=== PATIENT | female | born 1930 | race Caucasian/White ===

== ENCOUNTER 2017-05-23 04:18 | Inpatient (IN) | payer MEDICARE, BC ==
[2017-05-23] MEDS ORDERED: MORPHINE SULFATE 4 MG/ML SYRINGE IV STA (04:46)
[2017-05-23] MEDS ORDERED: SODIUM CHLORIDE 0.9% 500 ML IV STA (04:46)
[2017-05-23 05:15] LABS: Basophils # (A) 0.1 k/uL (0-0.2); Basophils % (A) 0 %; CH 30.5; CHCM 33.8; Eosinophils # (A) 0.1 k/uL (0-0.7); Eosinophils % (A) 1 %; HCT 38.2 % (34.0-46.0); HDW 2.17; HGB 12.8 gm/dL (11.4-16.0); Luc # (Auto) 0.11; Luc % (Auto) 1; Lymphocytes # (A) 4.5 k/uL (1.0-4.8); Lymphocytes % (A) 39 %; MCH 30.5 pg (25.0-35.0); MCHC 33.6 g/dL (31.0-37.0); MCV 90.7 fL (80.0-100.0); Monocytes # (A) 0.5 k/uL (0-1.0); Monocytes % (A) 4 %; Neutrophils # (A) 6.3 k/uL (1.3-7.7); Neutrophils % (A) 55 %; RBC 4.21 m/uL (3.80-5.40); RDW 14.4 % (11.5-15.5); WBC 11.6 k/uL (3.8-10.6); WBC (Perox) 11.52
[2017-05-23 05:25] LABS: Calcium 8.9 mg/dL (8.4-10.2); Total Bilirubin 0.8 mg/dL (0.2-1.3); Total Protein 6.3 g/dL (6.3-8.2)
--- NOTE | 2017-05-23 06:19 | XR ---
INDICATION: Abdominal pain COMPARISON: None. FINDINGS: Single frontal view of the abdomen demonstrates a nonobstructive bowel gas pattern. Multiple gas-filled loops of small and large bowel may represent ileus. The left hemidiaphragm appears elevated. There is opacification of the left hemidiaphragm with some gas-filled areas either representing aerated lung or gas-filled loop of bowel within a left-sided diaphragmatic hernia. Regional skeleton appears intact. IMPRESSION: 1. Possible ileus. No radiographic findings to suggest obstruction. 2. Abnormal appearance of the visualized lower left hemithorax, may represent partially consolidated lung versus left diaphragmatic hernia.
[2017-05-23 06:25] LABS: Appearance,Urine Clear (Clear); Bacteria,Urine Rare /hpf; Bilirubin,Urine Negative (Negative); Glucose,Urine (UA) Negative (Negative); Ketones,Urine Negative (Negative); Leukocyte Esterase,Urine Small (Negative); Mucus,Urine Rare /hpf; Nitrite,Urine Negative (Negative); Particle Count 1109; Protein,Urine Negative (Negative); RBC,Urine 1 /hpf (0-5); Specific Gravity,Urine 1.006 (1.001-1.035); Squamous Epithelial Cell,Urine 1 /hpf (0-4); UA Billing (MACRO vs. MICRO) MICRO; Urobilinogen,Urine <2.0 mg/dL (<2.0); WBC,Urine 6 /hpf (0-5)
[2017-05-23] MEDS ORDERED: MORPHINE SULFATE 2 MG/ML SYRINGE IVP PRN (06:27)
[2017-05-23] MEDS: SODIUM CHLORIDE 0.9% 1,000 ML IV SCH ×2 (06:32→18:15)
[2017-05-23] MEDS ORDERED: ONDANSETRON 4 MG/2 ML VIAL IVP PRN (06:32)
[2017-05-23] MEDS ORDERED: NALOXONE 0.4 MG/ML 1 ML VIAL IV PRN (06:32)
--- NOTE | 2017-05-23 06:32 | ED ---
General Adult HPI - General Chief complaint: Nausea/Vomiting/Diarrhea Stated complaint: Diarrhea Time Seen by Provider: 05/23/17 04:30 Source: patient, RN notes reviewed Mode of arrival: wheelchair Limitations: no limitations - History of Present Illness Initial comments: 87-year-old female with history of hypertension presents with a three-day history of nausea vomiting and diarrhea. She reports approximately 12 episodes of nausea, denies any blood. She also reports approximately 10 episodes of diarrhea. This is progressed to watery. Patient was started on Cipro on Sunday for these symptoms. Also complains of crampy abdominal pain which is generalized. She has had no abdominal surgeries in the past. She denies fever. Denies chest pain denies shortness of breath. She denies dysuria. - Related Data Home Medications Medication Instructions Recorded Confirmed Ciprofloxacin HCl [Cipro] 500 mg PO Q12HR 05/23/17 05/23/17 Lisinopril-Hctz 20-12.5 mg 2 tab PO DAILY 05/23/17 05/23/17 [Zestoretic 20-12.5] Allergies Allergy/AdvReac Type Severity Reaction Status Date / Time No Known Allergies Allergy Verified 05/23/17 04:26 Review of Systems ROS Statement: Those systems with pertinent positive or pertinent negative responses have been documented in the HPI. ROS Other: All systems not noted in ROS Statement are negative. Past Medical History Past Medical History: GERD/Reflux, Hypertension, Osteoarthritis (OA) Additional Past Medical History / Comment(s): TIA several yrs ago History of Any Multi-Drug Resistant Organisms: None Reported Past Surgical History: Tonsillectomy Additional Past Surgical History / Comment(s): neck sx "don't know what kind of surgery" Past Psychological History: No Psychological Hx Reported Smoking Status: Former smoker Past Alcohol Use History: Occasional Past Drug Use History: None Reported General Exam Limitations: no limitations General appearance: alert, in no apparent distress Head exam: Present: atraumatic, normocephalic Eye exam: Present: normal appearance, PERRL ENT exam: Present: normal exam, mucous membranes dry Neck exam: Present: normal inspection, full ROM Respiratory exam: Present: normal lung sounds bilaterally. Absent: respiratory distress, wheezes Cardiovascular Exam: Present: regular rate, normal rhythm GI/Abdominal exam: Present: soft, tenderness (Generalized tenderness to palpation, no rebound or guarding, hyperactive bowel sounds) Extremities exam: Present: normal inspection, normal capillary refill. Absent: pedal edema Neurological exam: Present: alert, oriented X3, CN II-XII intact. Absent: motor sensory deficit Psychiatric exam: Present: normal affect, normal mood Skin exam: Present: warm, dry. Absent: cyanosis, diaphoretic Course Vital Signs 05/23/17 05/23/17 05/23/17 04:20 04:37 05:40 Temperature 97.3 F L 97.9 F Pulse Rate 86 83 77 Respiratory 18 16 16 Rate Blood Pressure 169/72 172/65 O2 Sat by Pulse 98 97 98 Oximetry 05/23/17 06:09 Temperature Pulse Rate 81 Respiratory 18 Rate Blood Pressure 179/77 O2 Sat by Pulse 97 Oximetry EKG Findings - EKG Comments: EKG Findings:: EKG shows normal sinus rhythm ventricular rate 82, NM interval 142, QRS duration 76, QTC 441 Medical Decision Making - Medical Decision Making 87-year-old female presenting with nausea vomiting and diarrhea. Diarrhea has progressed to profound explosive and watery. Patient is currently on Cipro. Cipro will be held until C. diff assay is obtained. Abdominal x-ray shows ileus, and possible diaphragmatic hernia. No obstruction. Patient is given 2 mg morphine and IV hydration. On reevaluation she is feeling somewhat better, states there is still minimal crampy abdominal pain. She denies nausea. Laboratory studies reveal a serum creatinine of 2.3, no known baseline. Patient will be started on normal saline for rehydration. Diagnosis: Acute kidney injury, dehydration, nausea vomiting diarrhea - Lab Data Result diagrams: 05/23/17 05:08 05/23/17 05:08 Lab Results 05/23/17 05/23/17 Range/Units 05:08 05:08 WBC 11.6 H (3.8-10.6) k/uL RBC 4.21 (3.80-5.40) m/uL Hgb 12.8 (11.4-16.0) gm/dL Hct 38.2 (34.0-46.0) % MCV 90.7 (80.0-100.0) fL MCH 30.5 (25.0-35.0) pg MCHC 33.6 (31.0-37.0) g/dL RDW 14.4 (11.5-15.5) % Plt Count 453 H (150-450) k/uL Neutrophils % 55 % Lymphocytes % 39 % Monocytes % 4 % Eosinophils % 1 % Basophils % 0 % Neutrophils # 6.3 (1.3-7.7) k/uL Lymphocytes # 4.5 (1.0-4.8) k/uL Monocytes # 0.5 (0-1.0) k/uL Eosinophils # 0.1 (0-0.7) k/uL Basophils # 0.1 (0-0.2) k/uL Sodium 132 L (137-145) mmol/L Potassium 4.0 (3.5-5.1) mmol/L Chloride 97 L (98-107) mmol/L Carbon Dioxide 21 L (22-30) mmol/L Anion Gap 14 mmol/L BUN 52 H (7-17) mg/dL Creatinine 2.30 H (0.52-1.04) mg/dL Est GFR (MDRD) Af Amer 24 (>60 ml/min/1.73 sqM) Est GFR (MDRD) Non-Af 20 (>60 ml/min/1.73 sqM) Glucose 101 H (74-99) mg/dL Calcium 8.9 (8.4-10.2) mg/dL Total Bilirubin 0.8 (0.2-1.3) mg/dL AST 22 (14-36) U/L ALT 31 (9-52) U/L Alkaline Phosphatase 115 (38-126) U/L Total Protein 6.3 (6.3-8.2) g/dL Albumin 3.8 (3.5-5.0) g/dL Lipase 128 (23-300) U/L Disposition Clinical Impression: Dehydration, Acute kidney injury Disposition: ADMITTED IP TO THIS [facility] Condition: Stable Referrals: Emiliano Johns MD [Primary Care Provider] - 1-2 days Decision to Admit Reason: Admit from EC Decision Date: 05/23/17 Decision Time: 06:31
[2017-05-23] MEDS: LISINOPRIL-HCTZ 20-12.5 MG 1 EACH TAB PO SCH ×2 (08:20→15:45)
[2017-05-23] MEDS ORDERED: NAPROXEN 250 MG TAB PO PRN (08:27)
[2017-05-23] MEDS ORDERED: LOPERAMIDE 2 MG CAP PO PRN (08:29)
--- NOTE | 2017-05-23 08:34 | P.HPIM ---
History of Present Illness H&P Date: 05/23/17 Chief Complaint: Diarrhea This is a history and physical an 87-year-old white female who saw me Sunday for worsening diarrhea. We went ahead and started Cipro. She does live with her son, who does most of the cooking but has no symptoms. In the last several days she states it has slowly become more profound as far as the amount of diarrhea. No blood was noted. No hematemesis or hematochezia. The patient states yesterday, prior to admission she tried to eat some applesauce is a told her to try to get more of a blander diet. The patient states significant diarrhea and then woke up in the middle of the night to have a significant amount of diarrhea. Imodium sometimes is helpful. We will restart this otherwise. I discussed with her options, we will go ahead and check stool cultures. But she is admitted secondary to dehydration elements. She started to have prerenal azotemia. GI will not be consulted also. Stool cultures are pending question if stills also pending. Otherwise, her main complaint is diffuse upper abdominal pain. Review of Systems Constitutional: Denies chills, Denies fever Eyes: denies blurred vision, denies pain Ears, nose, mouth and throat: Denies headache, Denies sore throat Cardiovascular: Denies chest pain, Denies shortness of breath Gastrointestinal: Reports change in bowel habits, Reports diarrhea, Denies jaundice Genitourinary: Denies dysuria, Denies hematuria Musculoskeletal: Denies myalgias Past Medical History Past Medical History: GERD/Reflux, Hypertension, Osteoarthritis (OA) Additional Past Medical History / Comment(s): TIA several yrs ago History of Any Multi-Drug Resistant Organisms: None Reported Past Surgical History: Tonsillectomy Additional Past Surgical History / Comment(s): neck sx "don't know what kind of surgery" Past Psychological History: No Psychological Hx Reported Smoking Status: Former smoker Past Alcohol Use History: Occasional Past Drug Use History: None Reported Medications and Allergies Home Medications Medication Instructions Recorded Confirmed Type Allopurinol [Zyloprim] 100 mg PO DAILY 05/23/17 05/23/17 History Aspirin [Adult Low Dose Aspirin EC] 81 mg PO DAILY 05/23/17 05/23/17 History Ciprofloxacin HCl [Cipro] 500 mg PO Q12HR 05/23/17 05/23/17 History Gabapentin [Neurontin] 100 mg PO BID 05/23/17 05/23/17 History Lisinopril-Hctz 20-12.5 mg 1 tab PO BID 05/23/17 05/23/17 History [Zestoretic 20-12.5] Naproxen Sodium [Aleve] 220 mg PO Q12HR PRN 05/23/17 05/23/17 History Omeprazole 20 mg PO DAILY 05/23/17 05/23/17 History Allergies Allergy/AdvReac Type Severity Reaction Status Date / Time No Known Allergies Allergy Verified 05/23/17 07:57 Physical Exam Vitals: Vital Signs Temp Pulse Pulse Resp BP BP Pulse Ox 05/23/17 08:17 97.4 F L 86 18 185/73 97 05/23/17 06:36 97.3 F L 81 16 184/77 97 05/23/17 06:09 81 18 179/77 97 05/23/17 05:40 97.9 F 77 16 172/65 98 05/23/17 04:37 83 16 97 05/23/17 04:20 97.3 F L 86 18 169/72 98 Intake and Output 05/22/17 05/23/17 05/23/17 22:59 06:59 14:59 Other: Weight 58.06 kg - Constitutional General appearance: no acute distress - EENT Eyes: EOMI - Neck Neck: no lymphadenopathy - Respiratory Respiratory: bilateral: CTA - Cardiovascular Rhythm: regular Heart sounds: normal: S1, S2 - Gastrointestinal General gastrointestinal: hyperactive bowel sounds, soft, no tenderness - Neurologic Neurologic: CNII-XII intact Results CBC & Chem 7: 05/23/17 05:08 05/23/17 05:08 Labs: Abnormal Lab Results - Last 24 Hours (Table) 05/23/17 05/23/17 05/23/17 Range/Units 05:08 05:08 06:07 WBC 11.6 H (3.8-10.6) k/uL Plt Count 453 H (150-450) k/uL Sodium 132 L (137-145) mmol/L Chloride 97 L (98-107) mmol/L Carbon Dioxide 21 L (22-30) mmol/L BUN 52 H (7-17) mg/dL Creatinine 2.30 H (0.52-1.04) mg/dL Glucose 101 H (74-99) mg/dL Ur Leukocyte Esterase Small H (Negative) Urine WBC 6 H (0-5) /hpf Urine Bacteria Rare H (None) /hpf Hyaline Casts 5 H (0-2) /lpf Urine Mucus Rare H (None) /hpf Assessment and Plan (1) Acute kidney injury Status: Acute (2) Dehydration Status: Acute (3) Diarrhea Status: Acute (4) History of hypertension Status: Acute (5) History of gout Status: Acute Plan: Continue IV hydration. Start Imodium. Restart most of home medications. Add Flagyl to Cipro. Stool culture and question difficile is pending. Check GI consultation. Order CBC and CMP in a.m. Time with Patient: Greater than 30
[2017-05-23] MEDS ORDERED: LISINOPRIL-HCTZ 20-12.5 MG 1 EACH TAB PO SCH (09:00)
[2017-05-23] MEDS ORDERED: CIPROFLOXACIN HCL 500 MG TAB PO SCH (09:00)
[2017-05-23] MEDS ORDERED: ASPIRIN 81 MG CHEW PO SCH ×2 (09:00→21:00)
[2017-05-23 10:55] VITALS: BMI 24.3
[2017-05-23] MEDS: GABAPENTIN 100 MG CAP PO SCH ×2 (13:45→20:01)
[2017-05-23] MEDS: ALLOPURINOL 100 MG TAB PO SCH (13:46)
[2017-05-23] MEDS: metroNIDAZOLE 500 MG TAB PO SCH ×4 (13:46→21:34)
[2017-05-23] MEDS: PANTOPRAZOLE 40 MG TABLET PO SCH (13:46)
[2017-05-23] MEDS: amLODIPine 5 MG TAB PO SCH (18:14)
[2017-05-23] MEDS ORDERED: ZOLPIDEM 5 MG TAB PO PRN (21:00)
[2017-05-23] MEDS ORDERED: hydrALAZINE HCL 10 MG TAB PO PRN (21:52)
[2017-05-23] MEDS ORDERED: amLODIPine 5 MG TAB PO STA (21:52)
[2017-05-24] MEDS: amLODIPine 5 MG TAB PO SCH (07:18)
[2017-05-24] MEDS: LISINOPRIL-HCTZ 20-12.5 MG 1 EACH TAB PO SCH ×2 (07:18→20:30)
[2017-05-24 08:18] LABS: Calcium 8.5 mg/dL (8.4-10.2); Potassium 3.5 mmol/L (3.5-5.1); Total Bilirubin 0.7 mg/dL (0.2-1.3); Total Protein 5.6 g/dL (6.3-8.2)
--- NOTE | 2017-05-24 08:30 | P.PN ---
Subjective Principal diagnosis: Dehydration with diarrhea. This is a 87-year-old white female essentially admitted for severe diarrhea with dehydration. She's developed significant blood pressure issues with hypertension. We will adjust her medications today. No significant complaints of visual distortion or headache. No chest pain. Diarrhea seems to be improving. We will await cultures and Clostridium difficile. GI is otherwise consulted. Objective - Vital Signs Vital signs: Vital Signs Temp 97.8 F 05/24/17 07:00 Pulse 78 05/24/17 07:00 Resp 16 05/24/17 07:00 BP 184/74 05/24/17 07:00 Pulse Ox 96 05/24/17 07:00 Intake & Output 05/23/17 05/24/17 05/24/17 18:59 06:59 18:59 Intake Total 200 Balance 200 Weight 62.369 kg Intake: Oral 200 Other: # Voids 2 1 # Bowel Movements 1 - Constitutional General appearance: Present: average body habitus - EENT Eyes: Absent: abnormal pupil - Neck Neck: Absent: lymphadenopathy - Respiratory Respiratory: bilateral: CTA - Cardiovascular Rhythm: regular Heart sounds: normal: S1, S2 Abnormal Heart Sounds: Absent: S3 Gallop - Gastrointestinal General gastrointestinal: Present: soft - Neurologic Neurologic: Present: CNII-XII intact - Psychiatric Psychiatric: Present: appropriate affect, intact judgment & insight - Labs CBC & Chem 7: 05/23/17 05:08 05/24/17 07:38 Labs: Abnormal Lab Results - Last 24 Hours (Table) 05/24/17 Range/Units 07:38 Chloride 109 H (98-107) mmol/L Carbon Dioxide 19 L (22-30) mmol/L BUN 39 H (7-17) mg/dL Creatinine 1.63 H (0.52-1.04) mg/dL Total Protein 5.6 L (6.3-8.2) g/dL Albumin 3.2 L (3.5-5.0) g/dL Microbiology - Last 24 Hours (Table) 05/23/17 17:00 Stool Culture - Preliminary Stool Assessment and Plan (1) Acute kidney injury Status: Acute (2) Dehydration Status: Acute (3) Diarrhea Status: Acute (4) History of hypertension Status: Acute (5) History of gout Status: Acute Plan: Continue IV hydration. Titrate blood pressure medication. Check CMP in a.m. Anticipate discharge in next 24-48 hours if tolerating diet and diarrhea is resolving. Again, awaiting cultures and sensitivity. Time with Patient: Less than 30
[2017-05-24] MEDS: PANTOPRAZOLE 40 MG TABLET PO SCH (09:32)
[2017-05-24] MEDS: ALLOPURINOL 100 MG TAB PO SCH (09:32)
[2017-05-24] MEDS: metroNIDAZOLE 500 MG TAB PO SCH ×5 (09:32→20:30)
[2017-05-24] MEDS: GABAPENTIN 100 MG CAP PO SCH ×2 (09:32→20:30)
[2017-05-24] MEDS: CIPROFLOXACIN HCL 500 MG TAB PO SCH (09:32)
[2017-05-24 09:56] LABS: Basophils % (A) 1 %; CH 29.8; CHCM 33.3; Eosinophils # (A) 0.1 k/uL (0-0.7); Eosinophils % (A) 1 %; HCT 39.6 % (34.0-46.0); HGB 13.3 gm/dL (11.4-16.0); Luc # (Auto) 0.09; Luc % (Auto) 1; Lymphocytes # (A) 2.9 k/uL (1.0-4.8); Lymphocytes % (A) 39 %; MCH 30.2 pg (25.0-35.0); MCHC 33.5 g/dL (31.0-37.0); Mean Platelet Volume 8.3; Monocytes # (A) 0.4 k/uL (0-1.0); Monocytes % (A) 5 %; Neutrophils # (A) 3.9 k/uL (1.3-7.7); Neutrophils % (A) 53 %; RBC 4.41 m/uL (3.80-5.40); RDW 13.6 % (11.5-15.5); WBC 7.3 k/uL (3.8-10.6)
--- NOTE | 2017-05-24 10:36 | P.CONS ---
History of Present Illness - Reason for Consult Consult date: 05/24/17 Diarrhea Requesting physician: Emiliano Johns - History of Present Illness 87-year-old female presents with acute nausea vomiting diarrhea that started Sunday night. Her son barbecued dinner later that evening she developed some mild abdominal cramping with multiple episodes of loose nonbloody stool as well as nausea vomiting. Son was without symptoms. No fever or chills. No gross of hematemesis hematochezia melena. Symptoms seem to improve on Sunday after seeing her PCP was given an injection but then symptoms returned on Sunday. Presently feels better. One loose stool in the last 24 hours. Nausea vomiting subsided Sunday evening. Clostridium difficile negative. No history of diarrhea. No history of colonoscopy. No changes in medication sick contacts or unusual foods. White count 11.6 presently 7.3. Abdominal pain improved. Review of Systems Constitutional: Denies fever, chills, sweats, weight gain, or loss. HEENT: Negative for migraines, blurred vision or loss, earaches, drainage, tinnitus, oral mucosal lesions, dysphagia, or odynophagia. CARDIAC: Negative for chest pain, arrhythmias, or palpitation. RESPIRATORY: Negative for shortness of breath, hemoptysis, cough, or sputum production. GI: See HPI for pertinent findings. : Negative for hematuria, urgency, frequency, polyuria, or dysuria. GYNc: Denies possibility of . Negative vaginal discharge. MUSCULOSKELETAL: Negative for muscle aches, swelling, arthritis, and arthralgias. NEUROLOGIC: Negative for stroke or TIA. ENDOCRINE: Negative for thyroid problems. SKIN: Negative for rash or itching. PSYCHIATRIC: Negative history for depression and anxiety All systems: negative (See HPI) Past Medical History Past Medical History: GERD/Reflux, Hypertension, Osteoarthritis (OA) Additional Past Medical History / Comment(s): TIA several yrs ago History of Any Multi-Drug Resistant Organisms: None Reported Past Surgical History: Tonsillectomy Additional Past Surgical History / Comment(s): neck sx "don't know what kind of surgery" Past Anesthesia/Blood Transfusion Reactions: No Reported Reaction Past Psychological History: No Psychological Hx Reported Smoking Status: Former smoker Past Alcohol Use History: Occasional Past Drug Use History: None Reported - Past Family History Mother Family Medical History: Hypertension Additional Family Medical History / Comment(s): "born with hole in heart" Father Family Medical History: Myocardial Infarction (MA) Medications and Allergies Home Medications Medication Instructions Recorded Confirmed Type Allopurinol [Zyloprim] 100 mg PO DAILY 05/23/17 05/23/17 History Aspirin [Adult Low Dose Aspirin EC] 81 mg PO DAILY 05/23/17 05/23/17 History Ciprofloxacin HCl [Cipro] 500 mg PO Q12HR 05/23/17 05/23/17 History Gabapentin [Neurontin] 100 mg PO BID 05/23/17 05/23/17 History Lisinopril-Hctz 20-12.5 mg 1 tab PO BID 05/23/17 05/23/17 History [Zestoretic 20-12.5] Naproxen Sodium [Aleve] 220 mg PO Q12HR PRN 05/23/17 05/23/17 History Omeprazole 20 mg PO DAILY 05/23/17 05/23/17 History Allergies Allergy/AdvReac Type Severity Reaction Status Date / Time No Known Allergies Allergy Verified 05/23/17 07:57 Physical Exam Vitals: Vital Signs Temp Pulse Resp BP BP Pulse Ox 05/24/17 07:00 97.8 F 78 16 184/74 96 05/23/17 23:40 164/60 05/23/17 21:15 180/62 05/23/17 20:45 97.6 F 85 16 196/79 95 05/23/17 16:00 85 18 05/23/17 15:00 97.0 F L 85 18 197/83 160/128 96 Intake and Output 05/23/17 05/24/17 05/24/17 22:59 06:59 14:59 Intake Total 200 Balance 200 Intake: Oral 200 Other: # Voids 1 1 # Bowel Movements 1 General appearance: The patient is alert, oriented, in no acute distress. HET: Head is normocephalic and atraumatic. Pupils are equal and reactive. Oropharynx is clear without lesions. Neck: Supple without lymphadenopathy. Trachea midline. Heart: S1 S2. Regular rate and rhythm. Lungs: No crackles or wheezes are heard. Abdomen: Soft, nontender, nondistended with bowel sounds. No peritoneal signs. No palpable organomegaly or masses. Extremities: Normal skin color and turgor. No cyanosis, rash, ulceration, clubbing, or edema. Radial and pedal pulses are 2/4 bilaterally. Neurological: No focal deficits. Strength and sensation are grossly intact. Results CBC & Chem 7: 05/24/17 07:38 05/24/17 07:38 Labs: Abnormal Lab Results - Last 24 Hours (Table) 05/24/17 Range/Units 07:38 Chloride 109 H (98-107) mmol/L Carbon Dioxide 19 L (22-30) mmol/L BUN 39 H (7-17) mg/dL Creatinine 1.63 H (0.52-1.04) mg/dL Total Protein 5.6 L (6.3-8.2) g/dL Albumin 3.2 L (3.5-5.0) g/dL Microbiology - Last 24 Hours (Table) 05/23/17 17:00 Stool Culture - Preliminary Stool Assessment and Plan (1) Gastroenteritis Narrative/Plan: 87-year-old female presents with sudden onset of nausea vomiting nonbloody diarrhea 3 days suspect gastroenteritis with slow clinical improvement. Status: Acute Plan: 1. Advance diet as tolerated. Antidiarrheals as needed. Colonoscopy was discussed with patient however at this time she is declining. Continue supportive measures. Return to office in 1-2 weeks after discharge if symptoms have not improved will discuss outpatient colonoscopy; patient is agreeable with this plan a care. We'll follow with you. Thank you for this kind referral and the opportunity to participate in the care of your patient. This consultation was discussed with Dr. Arvizu. The impression and plan of care have been directed as dictated.
[2017-05-24] MEDS: amLODIPine 10 MG TAB PO SCH (11:41)
[2017-05-24] MEDS: SODIUM CHLORIDE 0.9% 1,000 ML IV SCH (11:42)
[2017-05-24] MEDS: ASPIRIN 81 MG CHEW PO SCH (20:29)
[2017-05-25] MEDS: SODIUM CHLORIDE 0.9% 1,000 ML IV SCH (00:50)
[2017-05-25] MEDS: CIPROFLOXACIN HCL 500 MG TAB PO SCH ×2 (00:50→17:51)
--- NOTE | 2017-05-25 07:48 | P.PN ---
Subjective Principal diagnosis: Dehydration with diarrhea. This is a continue progress on a 7-year-old white female essentially admitted for dehydration and gastritis. This is now resolving. She is now on Cipro and Flagyl and tolerating this quite well. The patient's however has developed this severe hypertension. I will go ahead and add on again to her regimen today. She does continue mild headache. We will go ahead and Hep-Lock her IV. I suspect this could be an issue. Otherwise no new voiding difficulties are stated. Objective - Vital Signs Vital signs: Vital Signs Temp 96.7 F L 05/24/17 21:00 Pulse 84 05/25/17 00:51 Resp 16 05/25/17 00:00 BP 169/70 05/25/17 00:51 Pulse Ox 97 05/24/17 21:00 Intake & Output 05/24/17 05/25/17 05/25/17 18:59 06:59 18:59 Intake Total 1320 1180 Balance 1320 1180 Intake: Intake, IV Titration 600 Amount Sodium Chloride 0.9% 1, 600 000 ml @ 75 mls/hr IV . [id number] [facility] Rx#:[id number] Oral 720 1180 Other: # Voids 4 1 - Constitutional General appearance: Present: average body habitus - EENT Eyes: Absent: abnormal pupil - Neck Neck: Absent: lymphadenopathy - Respiratory Respiratory: bilateral: CTA - Cardiovascular Rhythm: regular Heart sounds: normal: S1, S2 Abnormal Heart Sounds: Absent: systolic murmur - Gastrointestinal General gastrointestinal: Present: soft. Absent: tenderness - Neurologic Neurologic: Absent: CNII-XII intact - Psychiatric Psychiatric: Present: A&O x's 3, appropriate affect, intact judgment & insight - Labs CBC & Chem 7: 05/24/17 07:38 05/24/17 07:38 Labs: Abnormal Lab Results - Last 24 Hours (Table) 05/24/17 Range/Units 07:38 Chloride 109 H (98-107) mmol/L Carbon Dioxide 19 L (22-30) mmol/L BUN 39 H (7-17) mg/dL Creatinine 1.63 H (0.52-1.04) mg/dL Total Protein 5.6 L (6.3-8.2) g/dL Albumin 3.2 L (3.5-5.0) g/dL Assessment and Plan (1) Acute kidney injury Status: Acute (2) Dehydration Status: Acute (3) Diarrhea Status: Acute (4) History of hypertension Status: Acute (5) History of gout Status: Acute (6) Hypertension Status: Acute Plan: We'll go ahead and add clonidine to her regimen today. DC IV fluid and Hep- Lock it today. Diarrhea is-been resolving. Anticipate discharge in a.m. I would like to get her blood pressure more nominal. Even 150 systolic is acceptable at this time. Dr. Jasso's group will be covering for the weekend. I anticipate discharge in a.m. Check CMP in a.m. Time with Patient: Less than 30
[2017-05-25] MEDS: GABAPENTIN 100 MG CAP PO SCH ×2 (08:07→20:28)
[2017-05-25] MEDS: PANTOPRAZOLE 40 MG TABLET PO SCH (08:07)
[2017-05-25] MEDS: LISINOPRIL-HCTZ 20-12.5 MG 1 EACH TAB PO SCH ×2 (08:07→20:28)
[2017-05-25] MEDS: metroNIDAZOLE 500 MG TAB PO SCH ×4 (08:07→22:42)
[2017-05-25] MEDS: amLODIPine 10 MG TAB PO SCH (08:07)
[2017-05-25] MEDS: ALLOPURINOL 100 MG TAB PO SCH (08:07)
[2017-05-25] MEDS: cloNIDine HCL 0.1 MG TAB PO SCH ×2 (08:09→20:28)
--- NOTE | 2017-05-25 08:17 | P.PN ---
Subjective Principal diagnosis: diarrhea No diarrhea. Feels better. Tolerating diet. Anticipated DC tomorrow; BP elevated today. No abdominal pain. Afebrile. Objective - Vital Signs Vital signs: Vital Signs Temp 97.9 F 05/25/17 07:00 Pulse 84 05/25/17 07:49 Resp 16 05/25/17 07:49 BP 188/80 05/25/17 07:00 Pulse Ox 97 05/25/17 07:00 Intake & Output 05/24/17 05/25/17 05/25/17 18:59 06:59 18:59 Intake Total 1320 1180 Balance 1320 1180 Intake: Intake, IV Titration 600 Amount Sodium Chloride 0.9% 1, 600 000 ml @ 75 mls/hr IV . [id number] [facility] Rx#:[id number] Oral 720 1180 Other: # Voids 4 1 - Exam General appearance: The patient is alert, oriented, in no acute distress. HET: Head is normocephalic and atraumatic. Pupils are equal and reactive. Oropharynx is clear without lesions. Neck: Supple without lymphadenopathy. Trachea midline. Heart: S1 S2. Regular rate and rhythm. Lungs: No crackles or wheezes are heard. Abdomen: Soft, nontender, nondistended with bowel sounds. No peritoneal signs. No palpable organomegaly or masses. Extremities: Normal skin color and turgor. No cyanosis, rash, ulceration, clubbing, or edema. Radial and pedal pulses are 2/4 bilaterally. Neurological: No focal deficits. Strength and sensation are grossly intact. - Labs CBC & Chem 7: 05/24/17 07:38 05/24/17 07:38 Labs: Abnormal Lab Results - Last 24 Hours (Table) 05/24/17 Range/Units 07:38 Chloride 109 H (98-107) mmol/L Carbon Dioxide 19 L (22-30) mmol/L BUN 39 H (7-17) mg/dL Creatinine 1.63 H (0.52-1.04) mg/dL Total Protein 5.6 L (6.3-8.2) g/dL Albumin 3.2 L (3.5-5.0) g/dL Assessment and Plan (1) Gastroenteritis Narrative/Plan: 87-year-old female presents with sudden onset of nausea vomiting nonbloody diarrhea 3 days suspect gastroenteritis with clinical improvement. Status: Acute Plan: 1. Diet as tolerated. Antidiarrheals as needed. Colonoscopy was discussed with patient however at this time she is declining. Continue supportive measures. Return to office in 1-2 weeks after discharge if symptoms have not improved will discuss outpatient colonoscopy; patient is agreeable with this plan a care. We'll follow as needed. Assessment and plan of care discussed with Dr. Arvizu
[2017-05-25 08:40] LABS: Calcium 8.2 mg/dL (8.4-10.2); Potassium 3.6 mmol/L (3.5-5.1); Total Bilirubin 0.4 mg/dL (0.2-1.3); Total Protein 5.1 g/dL (6.3-8.2)
[2017-05-25 09:05] LABS: CH 30.1; CHCM 33.2; HCT 36.1 % (34.0-46.0); HDW 2.26; MCH 30.1 pg (25.0-35.0); MCHC 33.1 g/dL (31.0-37.0); Mean Platelet Volume 7.4; RBC 3.97 m/uL (3.80-5.40); RDW 13.8 % (11.5-15.5); WBC 7.1 k/uL (3.8-10.6)
[2017-05-25] MEDS: ASPIRIN 81 MG CHEW PO SCH (20:28)
[2017-05-25 22:09] VITALS: RESP 16
[2017-05-25 22:12] VITALS: TEMP 97.5
[2017-05-26] MEDS: LISINOPRIL-HCTZ 20-12.5 MG 1 EACH TAB PO SCH (07:29)
[2017-05-26] MEDS: cloNIDine HCL 0.1 MG TAB PO SCH (07:29)
[2017-05-26] MEDS: amLODIPine 10 MG TAB PO SCH (07:29)
[2017-05-26] MEDS: metroNIDAZOLE 500 MG TAB PO SCH ×2 (07:29→11:57)
[2017-05-26] MEDS: ALLOPURINOL 100 MG TAB PO SCH (07:29)
[2017-05-26] MEDS: GABAPENTIN 100 MG CAP PO SCH (07:29)
[2017-05-26] MEDS: PANTOPRAZOLE 40 MG TABLET PO SCH (07:29)
[2017-05-26 07:51] LABS: Calcium 8.2 mg/dL (8.4-10.2); Potassium 3.1 mmol/L (3.5-5.1); Total Bilirubin 0.4 mg/dL (0.2-1.3)
[2017-05-26 08:26] VITALS: BP 151/68; PULSE 70
[2017-05-26] MEDS: CIPROFLOXACIN HCL 500 MG TAB PO SCH (11:57)
--- NOTE | 2017-05-26 22:27 | P.DS ---
Providers Date of admission: 05/23/17 06:32 Attending physician: Emiliano Johns Primary care physician: Emiliano Johns Hospital Course: 87 yr old was admitted with acute watery diarrhea pt was noted to have TRU due to dehydration C . diff was negative Pt improved with abx, which was given with suspicion to infectious diarrhea No recent abx Pt improved, loperimide was also give Renal function improved Pt's symptoms improved DC home Consults K [facility] Abx for 10 days renal function improved F/u with Dr Johns Patient Condition at Discharge: Stable Plan - Discharge Summary New Discharge Prescriptions: New amLODIPine [Norvasc] 10 mg PO DAILY #30 tab cloNIDine HCL [Catapres] 0.1 mg PO BID #30 tab Loperamide [Imodium] 2 mg PO QID PRN cap PRN Reason: Diarrhea metroNIDAZOLE [Flagyl] 500 mg PO TID #30 tab Continue Lisinopril-Hctz 20-12.5 mg [Zestoretic 20-12.5] 1 tab PO BID Omeprazole 20 mg PO DAILY Naproxen Sodium [Aleve] 220 mg PO Q12HR PRN PRN Reason: Pain Gabapentin [Neurontin] 100 mg PO BID Allopurinol [Zyloprim] 100 mg PO DAILY Aspirin [Adult Low Dose Aspirin EC] 81 mg PO DAILY Ciprofloxacin HCl [Cipro] 500 mg PO Q12HR #20 Discharge Medication List Allopurinol [Zyloprim] 100 mg PO DAILY 05/23/17 [History] Aspirin [Adult Low Dose Aspirin EC] 81 mg PO DAILY 05/23/17 [History] Gabapentin [Neurontin] 100 mg PO BID 05/23/17 [History] Lisinopril-Hctz 20-12.5 mg [Zestoretic 20-12.5] 1 tab PO BID 05/23/17 [History] Naproxen Sodium [Aleve] 220 mg PO Q12HR PRN 05/23/17 [History] Omeprazole 20 mg PO DAILY 05/23/17 [History] Ciprofloxacin HCl [Cipro] 500 mg PO Q12HR #20 05/26/17 [Rx] Loperamide [Imodium] 2 mg PO QID PRN cap 05/26/17 [Rx] amLODIPine [Norvasc] 10 mg PO DAILY #30 tab 05/26/17 [Rx] cloNIDine HCL [Catapres] 0.1 mg PO BID #30 tab 05/26/17 [Rx] metroNIDAZOLE [Flagyl] 500 mg PO TID #30 tab 05/26/17 [Rx] Follow up Appointment(s)/Referral(s): Emiliano Johns MD [Primary Care Provider] - 1-2 days Korina Arvizu MD [STAFF PHYSICIAN] - 2 Weeks Patient Instructions/Handouts: Ciprofloxacin (By mouth), Clonidine (By mouth), Metronidazole (By mouth), Dehydration (DC), Acute Diarrhea (GEN) Activity/Diet/Wound Care/Special Instructions: please call on Sunday to schedule appointments office closed on weekends monitor B/P call DR Johns office if remains high Discharge Disposition: HOME SELF-CARE
== END 2017-05-26 12:29 | disposition home or self-care (01) | DRG 392 ==
LOC: EC 04:18 → 5MS5E 06:32
PROVIDERS: ADMIT Family Medicine; ATTEND Family Medicine
DX: A09 Infectious gastroenteritis and colitis, unspecified (principal); N17.9 Acute kidney failure, unspecified; E86.0 Dehydration; I10 Essential (primary) hypertension; R51 Headache; K29.70 Gastritis, unspecified, without bleeding; R93.5 Abnormal findings on diagnostic imaging of other abdominal regions, including retroperitoneum; K21.9 Gastro-esophageal reflux disease without esophagitis; M10.9 Gout, unspecified; M19.90 Unspecified osteoarthritis, unspecified site; Z87.891 Personal history of nicotine dependence; Z79.899 Other long term (current) drug therapy; Z86.73 Personal history of transient ischemic attack (TIA), and cerebral infarction without residual deficits; Z82.49 Family history of ischemic heart disease and other diseases of the circulatory system; Z82.79 Family history of other congenital malformations, deformations and chromosomal abnormalities; Z79.1 Long term (current) use of non-steroidal anti-inflammatories (NSAID); Z79.82 Long term (current) use of aspirin
CPT/HCPCS: 36415; 74000; 80053; 81001; 83690; 85025; 85027; 87045; 87046; 87324; 93005

== ENCOUNTER 2017-07-17 00:24 | Inpatient (IN) | payer MEDICARE, BC ==
[2017-07-17] MEDS ORDERED: SODIUM CHLORIDE 0.9% 1,000 ML IV STA ×2 (00:31→02:21)
[2017-07-17] MEDS ORDERED: SODIUM CHLORIDE 0.9% 500 ML IV STA (00:31)
--- NOTE | 2017-07-17 00:42 | ED ---
General Adult HPI - General Chief complaint: Fall Stated complaint: fall Time Seen by Provider: 07/17/17 00:26 Source: patient, EMS, RN notes reviewed, old records reviewed Mode of arrival: EMS Limitations: no limitations - History of Present Illness Initial comments: This is a 7-year-old female ER for evaluation. Patient with a for evaluation regarding fall. Unknown her unwitnessed fall. Patient with inability of history secondary to medical condition. patient from EMS the patient's chart - Related Data Home Medications Medication Instructions Recorded Confirmed Allopurinol [Zyloprim] 100 mg PO DAILY 05/23/17 05/23/17 Aspirin [Adult Low Dose Aspirin EC] 81 mg PO DAILY 05/23/17 05/23/17 Gabapentin [Neurontin] 100 mg PO BID 05/23/17 05/23/17 Lisinopril-Hctz 20-12.5 mg 1 tab PO BID 05/23/17 05/23/17 [Zestoretic 20-12.5] Naproxen Sodium [Aleve] 220 mg PO Q12HR PRN 05/23/17 05/23/17 Omeprazole 20 mg PO DAILY 05/23/17 05/23/17 Previous Rx's Medication Instructions Recorded Ciprofloxacin HCl [Cipro] 500 mg PO Q12HR #20 05/26/17 Loperamide [Imodium] 2 mg PO QID PRN cap 05/26/17 amLODIPine [Norvasc] 10 mg PO DAILY #30 tab 05/26/17 cloNIDine HCL [Catapres] 0.1 mg PO BID #30 tab 05/26/17 metroNIDAZOLE [Flagyl] 500 mg PO TID #30 tab 05/26/17 Allergies Allergy/AdvReac Type Severity Reaction Status Date / Time No Known Allergies Allergy Verified 05/23/17 07:57 Review of Systems ROS Statement: Those systems with pertinent positive or pertinent negative responses have been documented in the HPI. ROS Other: All systems not noted in ROS Statement are negative. Past Medical History Past Medical History: GERD/Reflux, Hypertension, Osteoarthritis (OA) Additional Past Medical History / Comment(s): TIA several yrs ago History of Any Multi-Drug Resistant Organisms: None Reported Past Surgical History: Tonsillectomy Additional Past Surgical History / Comment(s): neck sx "don't know what kind of surgery" Past Anesthesia/Blood Transfusion Reactions: No Reported Reaction Past Psychological History: No Psychological Hx Reported Smoking Status: Former smoker Past Alcohol Use History: Occasional Past Drug Use History: None Reported - Past Family History Mother Family Medical History: Hypertension Additional Family Medical History / Comment(s): "born with hole in heart" Father Family Medical History: Myocardial Infarction ([place]) General Exam Limitations: altered mental status General appearance: alert, in no apparent distress Head exam: Present: atraumatic, normocephalic, normal inspection Eye exam: Present: normal appearance, PERRL, EOMI. Absent: scleral icterus, conjunctival injection, periorbital swelling ENT exam: Present: normal exam, mucous membranes moist Neck exam: Present: normal inspection. Absent: tenderness, meningismus, lymphadenopathy Respiratory exam: Present: normal lung sounds bilaterally. Absent: respiratory distress, wheezes, rales, rhonchi, stridor Cardiovascular Exam: Present: regular rate, normal rhythm, normal heart sounds. Absent: systolic murmur, diastolic murmur, rubs, gallop, clicks GI/Abdominal exam: Present: soft, normal bowel sounds. Absent: distended, tenderness, guarding, rebound, rigid Extremities exam: Present: normal inspection, full ROM, normal capillary refill. Absent: tenderness, pedal edema, joint swelling, calf tenderness Back exam: Present: normal inspection Neurological exam: Present: alert, oriented X3, CN II-XII intact Psychiatric exam: Present: normal affect, normal mood Skin exam: Present: warm, dry, intact, normal color. Absent: rash Course Vital Signs 07/17/17 07/17/17 00:25 03:06 Temperature 97.0 F L 98.8 F Pulse Rate 66 69 Respiratory 16 16 Rate Blood Pressure 112/50 124/51 O2 Sat by Pulse 94 L 93 L Oximetry EKG Findings - EKG Comments: EKG Findings:: EKG shows sinus tachycardia rate of 104, [place] 140, QRS 74, QTC or 76 Medical Decision Making - Medical Decision Making [address] [facility] for evaluation of fall, significant weakness. Patient found her multiple medical abnormalities. Positive for pneumonia, low magnesium. Patient be admitted for rule out further placement rehydration and monitoring of cardiopulmonary status and infection - Lab Data Result diagrams: 07/17/17 01:20 07/17/17 01:20 Lab Results 07/17/17 07/17/17 07/17/17 Range/Units 01:20 01:20 01:20 WBC 19.4 H (3.8-10.6) k/uL RBC 4.83 (3.80-5.40) m/uL Hgb 14.3 (11.4-16.0) gm/dL Hct 44.1 (34.0-46.0) % MCV 91.4 (80.0-100.0) fL MCH 29.7 (25.0-35.0) pg MCHC 32.5 (31.0-37.0) g/dL RDW 14.6 (11.5-15.5) % Plt Count 537 H (150-450) k/uL Neutrophils % 75 % Lymphocytes % 21 % Monocytes % 2 % Eosinophils % 1 % Basophils % 0 % Neutrophils # 14.5 H (1.3-7.7) k/uL Lymphocytes # 4.1 (1.0-4.8) k/uL Monocytes # 0.4 (0-1.0) k/uL Eosinophils # 0.2 (0-0.7) k/uL Basophils # 0.1 (0-0.2) k/uL PT (9.0-12.0) sec INR (<1.2) APTT (22.0-30.0) sec Sodium 135 L (137-145) mmol/L Potassium 4.0 (3.5-5.1) mmol/L Chloride 105 (98-107) mmol/L Carbon Dioxide 18 L (22-30) mmol/L Anion Gap 12 mmol/L BUN 28 H (7-17) mg/dL Creatinine 1.10 H (0.52-1.04) mg/dL Est GFR (MDRD) Af Amer 57 (>60 ml/min/1.73 sqM) Est GFR (MDRD) Non-Af 47 (>60 ml/min/1.73 sqM) Glucose 177 H (74-99) mg/dL Plasma Lactic Acid Travis (0.7-2.0) mmol/L Calcium 9.0 (8.4-10.2) mg/dL Phosphorus 4.8 H (2.5-4.5) mg/dL Magnesium 1.0 L* (1.6-2.3) mg/dL Total Bilirubin 0.6 (0.2-1.3) mg/dL AST 21 (14-36) U/L ALT 30 (9-52) U/L Alkaline Phosphatase 127 H (38-126) U/L Total Creatine Kinase 42 (30-135) U/L CK-MB (CK-2) 1.2 (0.0-2.4) ng/mL CK-MB (CK-2) Rel Index 2.9 Troponin I <0.012 (0.000-0.034) ng/mL Total Protein 6.1 L (6.3-8.2) g/dL Albumin 3.4 L (3.5-5.0) g/dL TSH 4.760 H (0.465-4.680) mIU/L 07/17/17 07/17/17 Range/Units 01:20 01:20 WBC (3.8-10.6) k/uL RBC (3.80-5.40) m/uL Hgb (11.4-16.0) gm/dL Hct (34.0-46.0) % MCV (80.0-100.0) fL MCH (25.0-35.0) pg MCHC (31.0-37.0) g/dL RDW (11.5-15.5) % Plt Count (150-450) k/uL Neutrophils % % Lymphocytes % % Monocytes % % Eosinophils % % Basophils % % Neutrophils # (1.3-7.7) k/uL Lymphocytes # (1.0-4.8) k/uL Monocytes # (0-1.0) k/uL Eosinophils # (0-0.7) k/uL Basophils # (0-0.2) k/uL PT 12.5 H (9.0-12.0) sec INR 1.3 H (<1.2) APTT 19.9 L (22.0-30.0) sec Sodium (137-145) mmol/L Potassium (3.5-5.1) mmol/L Chloride (98-107) mmol/L Carbon Dioxide (22-30) mmol/L Anion Gap mmol/L BUN (7-17) mg/dL Creatinine (0.52-1.04) mg/dL Est GFR (MDRD) Af Amer (>60 ml/min/1.73 sqM) Est GFR (MDRD) Non-Af (>60 ml/min/1.73 sqM) Glucose (74-99) mg/dL Plasma Lactic Acid Travis 1.9 (0.7-2.0) mmol/L Calcium (8.4-10.2) mg/dL Phosphorus (2.5-4.5) mg/dL Magnesium (1.6-2.3) mg/dL Total Bilirubin (0.2-1.3) mg/dL AST (14-36) U/L ALT (9-52) U/L Alkaline Phosphatase (38-126) U/L Total Creatine Kinase (30-135) U/L CK-MB (CK-2) (0.0-2.4) ng/mL CK-MB (CK-2) Rel Index Troponin I (0.000-0.034) ng/mL Total Protein (6.3-8.2) g/dL Albumin (3.5-5.0) g/dL TSH (0.465-4.680) mIU/L - Radiology Data Radiology results: report reviewed (CT brain C-spine negative for traumatic injury, chest history positive for pneumonia), image reviewed Disposition Clinical Impression: Fall, Dehydration, Acute kidney injury, Community acquired pneumonia, Weakness , Hypomagnesemia Disposition: ADMITTED IP TO THIS [facility] Condition: Fair
--- NOTE | 2017-07-17 01:12 | CT ---
CT HEAD WITHOUT CONTRAST CT CERVICAL SPINE WITHOUT CONTRAST INDICATION: Fall, confusion, history of CVA and back pain TECHNIQUE: CT acquisition is performed through the brain. CT acquisition is also performed through the cervical spine. Sagittal and coronal reformatted images are provided. No IV contrast is administered. DOSE INFORMATION: CTDIvol 288 mGy; DLP 1081.60 mGy-cm. One or more of the following dose reduction techniques were used: automated exposure control, adjustment of the mA and/or kV according to patient size, use of iterative reconstruction technique. COMPARISON: None. FINDINGS: CT head: There is no evidence of acute intracranial hemorrhage or abnormal extra- axial fluid collection. There is no mass effect or midline shift. There are generalized involutional changes with prominence of the sulci, ventricles, and basal cisterns. Hypoattenuation in the periventricular and deep cerebral white matter is compatible with chronic small vessel ischemic disease. The kirkpatrick-white matter differentiation appears preserved. Visualized paranasal sinuses and mastoid air cells are clear. The calvarium is intact. CT cervical spine: There is straightening of the cervical spine with multilevel disc and facet degeneration. There is ankylosis across the C4-C5 disc space. There is no evidence of acute fracture or subluxation. There is no prevertebral soft tissue swelling. Lung apices are clear. IMPRESSION: 1. No evidence of acute intracranial process. Involutional and chronic small vessel ischemic changes. 2. No evidence of acute fracture of the cervical spine. Spondylosis.
--- NOTE | 2017-07-17 01:14 | XR ---
INDICATION: Weakness COMPARISON: None. FINDINGS: Single frontal view of the chest is provided. There is mild cardiomegaly and thoracic aortic atherosclerosis. Pulmonary vascularity is normal. There is silhouetting of the left hemidiaphragm suggesting left pleural effusion and left basilar airspace disease, atelectasis versus infiltrate. The right lung is clear. There is no pneumothorax. There are multiple old, healed left-sided rib fractures. No evidence of acute osseous abnormality. IMPRESSION: 1. Small left pleural effusion with left basilar airspace disease, atelectasis or infiltrate. Probable elevation of the left hemidiaphragm.
[2017-07-17 01:28] LABS: Basophils # (A) 0.1 k/uL (0-0.2); Basophils % (A) 0 %; CH 31.1; CHCM 34.2; Eosinophils # (A) 0.2 k/uL (0-0.7); Eosinophils % (A) 1 %; HCT 44.1 % (34.0-46.0); HDW 2.36; HGB 14.3 gm/dL (11.4-16.0); Luc # (Auto) 0.12; Luc % (Auto) 1; Lymphocytes # (A) 4.1 k/uL (1.0-4.8); Lymphocytes % (A) 21 %; MCH 29.7 pg (25.0-35.0); MCHC 32.5 g/dL (31.0-37.0); MCV 91.4 fL (80.0-100.0); Mean Platelet Volume 7.6; Monocytes # (A) 0.4 k/uL (0-1.0); Monocytes % (A) 2 %; Neutrophils # (A) 14.5 k/uL (1.3-7.7); Neutrophils % (A) 75 %; RBC 4.83 m/uL (3.80-5.40); RDW 14.6 % (11.5-15.5); WBC 19.4 k/uL (3.8-10.6); WBC (Perox) 19.02
[2017-07-17] MEDS ORDERED: ONDANSETRON 4 MG/2 ML VIAL IVP STA (01:42)
[2017-07-17] MEDS ORDERED: MORPHINE SULFATE 4 MG/ML SYRINGE IVP STA (01:42)
[2017-07-17 01:45] LABS: Phosphorous 4.8 mg/dL (2.5-4.5); Total Bilirubin 0.6 mg/dL (0.2-1.3); Total Protein 6.1 g/dL (6.3-8.2)
[2017-07-17 01:49] LABS: INR 1.3 (<1.2); Prothrombin Time 12.5 sec (9.0-12.0)
[2017-07-17 01:50] LABS: Partial Thromboplastin Time 19.9 sec (22.0-30.0)
[2017-07-17 01:59] LABS: Creatine Kinase 42 U/L (30-135)
[2017-07-17 02:12] LABS: Creatine Kinase MB 1.2 ng/mL (0.0-2.4); Troponin I <0.012 ng/mL (0.000-0.034)
[2017-07-17] MEDS ORDERED: IPRATROPIUM-ALBUTEROL 3 ML NEB INHALATION PRN (02:21)
[2017-07-17] MEDS ORDERED: LEVOFLOXACIN 750MG-D5W PMX 750 MG in DEXTROSE/WATER 1 150ML.BAG IVPB STA (02:21)
[2017-07-17] MEDS ORDERED: PNEUMONIA PROTOCOL UTILIZED 1 EACH MISC PO PRN (02:21)
[2017-07-17] MEDS: SODIUM CHLORIDE 0.9% 1,000 ML IV SCH ×3 (02:35→23:04)
[2017-07-17] MEDS: MAGNESIUM SULFATE-D5W PMX 1 GM in DEXTROSE/WATER 1 100ML.BAG IVPB SCH ×4 (02:36→06:19)
--- NOTE | 2017-07-17 08:41 | P.HPIM ---
History of Present Illness H&P Date: 07/17/17 Chief Complaint: Fall with weakness and nausea with vomiting. This is an 87-year-old white male female who is fairly well-known to my office with history of several days of weakness and headache with nausea and vomiting. She is been not able to eat properly. She was just at her daughter's in [place] for 6 days and has recently returned. Multiple falls are noted. Workup done showed significant infiltrate of pneumonia. Significant nausea but no hemoptysis or hematemesis. Diarrhea is also noted. We will check for influenza today. Otherwise, electrolyte imbalances noted. Review of Systems Constitutional: Reports chills, Reports fever, Reports weakness Eyes: denies blurred vision, denies pain Ears, nose, mouth and throat: Denies headache, Denies sore throat Cardiovascular: Denies chest pain, Denies shortness of breath Respiratory: Denies cough Gastrointestinal: Denies abdominal pain, Denies diarrhea, Denies nausea, Denies vomiting Genitourinary: Denies dysuria, Denies hematuria Musculoskeletal: Denies myalgias Past Medical History Past Medical History: GERD/Reflux, Hypertension, Osteoarthritis (OA) Additional Past Medical History / Comment(s): TIA several yrs ago History of Any Multi-Drug Resistant Organisms: None Reported Past Surgical History: Tonsillectomy Additional Past Surgical History / Comment(s): neck sx "don't know what kind of surgery" Past Anesthesia/Blood Transfusion Reactions: No Reported Reaction Past Psychological History: No Psychological Hx Reported Smoking Status: Former smoker Past Alcohol Use History: Occasional Past Drug Use History: None Reported - Past Family History Mother Family Medical History: Hypertension Additional Family Medical History / Comment(s): "born with hole in heart" Father Family Medical History: Myocardial Infarction ([place]) Medications and Allergies Home Medications Medication Instructions Recorded Confirmed Type Aspirin [Adult Low Dose Aspirin EC] 81 mg PO DAILY 05/23/17 07/17/17 History Gabapentin [Neurontin] 100 mg PO TID 05/23/17 07/17/17 History Lisinopril-Hctz 20-12.5 mg 1 tab PO BID 05/23/17 07/17/17 History [Zestoretic 20-12.5] Naproxen Sodium [Aleve] 220 mg PO Q12HR PRN 05/23/17 07/17/17 History Omeprazole 20 mg PO DAILY 05/23/17 07/17/17 History Allergies Allergy/AdvReac Type Severity Reaction Status Date / Time No Known Allergies Allergy Verified 07/17/17 08:35 Physical Exam Vitals: Vital Signs Temp Pulse Pulse Resp BP BP Pulse Ox 07/17/17 07:40 97.7 F 74 14 108/42 99 07/17/17 04:12 97.4 F L 70 16 123/56 07/17/17 03:06 98.8 F 69 16 124/51 93 L 07/17/17 00:25 97.0 F L 66 16 112/50 94 L Intake and Output 07/16/17 07/17/17 07/17/17 22:59 06:59 14:59 Intake Total 870 Balance 870 Intake: Intake, IV Titration 750 Amount Levofloxacin 750Mg-D5w 150 Pmx 750 mg In Dextrose/ Water 1 150ml.bag @ 100 mls/hr IVPB ONCE STA Rx#: [id number] Magnesium Sulfate-D5w Pmx 300 1 gm In Dextrose/Water 1 100ml.bag @ 100 mls/hr IVPB Q1H MILDRED Rx#: [id number] Sodium Chloride 0.9% 1, 300 000 ml @ 100 mls/hr IV . Q10H MILDRED Rx#:[id number] Oral 120 Other: Weight 72.575 kg - Constitutional General appearance: average body habitus, cooperative - EENT Eyes: anicteric sclerae - Neck Neck: no lymphadenopathy - Respiratory Respiratory: bilateral: diminished - Cardiovascular Rhythm: regular Heart sounds: normal: S1, S2 - Gastrointestinal General gastrointestinal: normal bowel sounds, soft, no tenderness - Integumentary Integumentary: no cellulitis - Neurologic Neurologic: CNII-XII intact - Musculoskeletal Musculoskeletal: generalized weakness Results CBC & Chem 7: 07/17/17 01:20 07/17/17 01:20 Labs: Abnormal Lab Results - Last 24 Hours (Table) 07/17/17 07/17/17 07/17/17 Range/Units 01:20 01:20 01:20 WBC 19.4 H (3.8-10.6) k/uL Plt Count 537 H (150-450) k/uL Neutrophils # 14.5 H (1.3-7.7) k/uL PT 12.5 H (9.0-12.0) sec INR 1.3 H (<1.2) APTT 19.9 L (22.0-30.0) sec Sodium 135 L (137-145) mmol/L Carbon Dioxide 18 L (22-30) mmol/L BUN 28 H (7-17) mg/dL Creatinine 1.10 H (0.52-1.04) mg/dL Glucose 177 H (74-99) mg/dL Phosphorus 4.8 H (2.5-4.5) mg/dL Magnesium 1.0 L* (1.6-2.3) mg/dL Alkaline Phosphatase 127 H (38-126) U/L Total Protein 6.1 L (6.3-8.2) g/dL Albumin 3.4 L (3.5-5.0) g/dL TSH 4.760 H (0.465-4.680) mIU/L Thrombosis Risk Factor Assmnt - Choose All That Apply Any of the Below Risk Factors Present?: Yes Each Factor Represents 1 point: Obesity (BMI >25) Other Risk Factors: Yes Each Risk Factor Represents 3 Points: Age 75 years or older Other congenital or acquired thrombophilia - If yes, enter type in comment: No Thrombosis Risk Factor Assessment Total Risk Factor Score: 4 Thrombosis Risk Factor Assessment Level: Moderate Risk Assessment and Plan (1) Community acquired pneumonia Status: Acute (2) Dehydration Status: Acute (3) Weakness Status: Acute (4) Diarrhea Status: Acute Plan: Continue current regimen of antibiotic treatment. Clear liquid diet and advance tolerated. Check CBC CMP and magnesium in a.m. Check place on appropriate electrode protocol. If no significant improvement, consider pulmonology referral. Prognosis is guarded secondary to advancing age. Time with Patient: Less than 30
[2017-07-17] MEDS ORDERED: Magnesium Replacement Protocol 1 EACH MISC MISCELLANE PRN (08:42)
[2017-07-17] MEDS ORDERED: PANTOPRAZOLE 40 MG TABLET PO ONE (09:00)
[2017-07-17] MEDS ORDERED: ONDANSETRON 4 MG/2 ML VIAL IVP PRN (09:07)
[2017-07-17 10:15] LABS: Glucose,Whole Blood 113 mg/dL (75-99)
[2017-07-17 11:12] LABS: ALT 21 U/L (9-52); AST 20 U/L (14-36); Alkaline Phosphatase 98 U/L (38-126); Anion Gap 11 mmol/L; Blood Urea Nitrogen 29 mg/dL (7-17); Calcium 8.1 mg/dL (8.4-10.2); Carbon Dioxide 19 mmol/L (22-30); Chloride 106 mmol/L (98-107); Glucose 110 mg/dL (74-99); Magnesium 2.1 mg/dL (1.6-2.3); Non-African American GFR(MDRD) 50 (>60 ml/min/1.73 sqM); Potassium 4.1 mmol/L (3.5-5.1); Sodium 136 mmol/L (137-145); Total Bilirubin 0.5 mg/dL (0.2-1.3); Total Protein 5.4 g/dL (6.3-8.2)
[2017-07-17] MEDS: ASPIRIN 81 MG PO SCH (11:18)
[2017-07-17 11:25] LABS: Basophils % (A) 0 %; CH 29.3; CHCM 31.7; Eosinophils % (A) 0 %; HCT 37.3 % (34.0-46.0); HDW 2.34; HGB 12.1 gm/dL (11.4-16.0); Luc # (Auto) 0.09; Luc % (Auto) 1; Lymphocytes # (A) 2.3 k/uL (1.0-4.8); Lymphocytes % (A) 19 %; MCH 30.2 pg (25.0-35.0); MCHC 32.5 g/dL (31.0-37.0); Mean Platelet Volume 7.1; Monocytes # (A) 0.3 k/uL (0-1.0); Monocytes % (A) 3 %; Neutrophils # (A) 9.5 k/uL (1.3-7.7); Neutrophils % (A) 78 %; RBC 4.01 m/uL (3.80-5.40); RDW 13.7 % (11.5-15.5); WBC 12.2 k/uL (3.8-10.6); WBC (Perox) 12.38
[2017-07-17] MEDS: ENOXAPARIN 40 MG/0.4 ML SYRINGE SQ SCH (11:45)
[2017-07-17] MEDS: LISINOPRIL-HCTZ 20-12.5 MG 1 EACH TAB PO SCH ×2 (11:46→20:50)
[2017-07-17] MEDS: GABAPENTIN 100 MG CAP PO SCH ×3 (11:46→20:50)
[2017-07-17 14:47] LABS: Amorphous Sediment,Urine Occasional /hpf; Appearance,Urine Cloudy (Clear); Bilirubin,Urine Negative (Negative); Glucose,Urine (UA) Negative (Negative); Ketones,Urine Negative (Negative); Leukocyte Esterase,Urine Moderate (Negative); Mucus,Urine Occasional /hpf; Nitrite,Urine Negative (Negative); Particle Count 6307; Protein,Urine Trace (Negative); RBC,Urine 3 /hpf (0-5); Specific Gravity,Urine 1.014 (1.001-1.035); Squamous Epithelial Cell,Urine 4 /hpf (0-4); UA Billing (MACRO vs. MICRO) MICRO; Urobilinogen,Urine <2.0 mg/dL (<2.0); WBC,Urine 9 /hpf (0-5)
[2017-07-17] MEDS: ACETAMINOPHEN TAB 325 MG TAB PO PRN (20:50)
[2017-07-18] MEDS ORDERED: LEVOFLOXACIN 750MG-D5W PMX 750 MG in DEXTROSE/WATER 1 150ML.BAG IVPB SCH (03:00)
--- NOTE | 2017-07-18 08:47 | P.PN ---
Subjective Principal diagnosis: CVA signs/facial droop. This is a continue progress on a 7-year-old white female essentially admitted for pneumonia and fall. There is element of hypomagnesemia on admission and there was weakness. Unfortunately, as she started to physically recover, there is facial droop noted and slurring of speech slightly. Computed tomography scan was ordered and neurology is consulted. Probable CVA is noted. The patient states that she doesn't feel physically much better because she has less nausea. She seems to be tolerating diet. Objective - Vital Signs Vital signs: Vital Signs Temp 97.4 F L 07/18/17 07:00 Pulse 84 07/18/17 07:00 Resp 16 07/18/17 07:00 BP 149/60 07/18/17 07:00 Pulse Ox 95 07/18/17 07:00 Intake & Output 07/17/17 07/18/17 07/18/17 18:59 06:59 18:59 Intake Total 920 50 Balance 920 50 Intake: IV 700 Sodium Chloride 0.9% 1, 700 000 ml @ 100 mls/hr IV . Q10H [facility]DR[facility] Rx#:[id number] Intake, IV Titration 100 Amount Levofloxacin 750Mg-D5w 100 Pmx 750 mg In Dextrose/ Water 1 150ml.bag @ 100 mls/hr IVPB Q24H MILDRED Rx#: [id number] Oral 120 50 Other: Voiding Method Bedside Commode Bedside Commode Incontinent # Voids 2 - Constitutional General appearance: Present: average body habitus - EENT Eyes: Absent: abnormal pupil - Neck Neck: Absent: lymphadenopathy - Respiratory Respiratory: bilateral: diminished - Cardiovascular Rhythm: regular Abnormal Heart Sounds: Absent: S3 Gallop - Gastrointestinal General gastrointestinal: Present: soft. Absent: tenderness - Neurologic Neurologic Comment(s): Left-sided facial droop with some weakness on the ipsilateral side. Neurologic: Present: focal deficits - Musculoskeletal Musculoskeletal: Present: left sided weakness - Labs CBC & Chem 7: 07/17/17 10:30 07/17/17 10:30 Labs: Abnormal Lab Results - Last 24 Hours (Table) 07/17/17 07/17/17 07/17/17 Range/Units 09:58 10:30 10:30 WBC 12.2 H (3.8-10.6) k/uL Neutrophils # 9.5 H (1.3-7.7) k/uL Sodium 136 L (137-145) mmol/L Carbon Dioxide 19 L (22-30) mmol/L BUN 29 H (7-17) mg/dL Glucose 110 H (74-99) mg/dL POC Glucose (mg/dL) 113 H (75-99) mg/dL Calcium 8.1 L (8.4-10.2) mg/dL Total Protein 5.4 L (6.3-8.2) g/dL Albumin 3.0 L (3.5-5.0) g/dL Urine Appearance (Clear) Urine Protein (Negative) Ur Leukocyte Esterase (Negative) Urine WBC (0-5) /hpf Amorphous Sediment (None) /hpf Hyaline Casts (0-2) /lpf Urine Mucus (None) /hpf 07/17/17 Range/Units 14:18 WBC (3.8-10.6) k/uL Neutrophils # (1.3-7.7) k/uL Sodium (137-145) mmol/L Carbon Dioxide (22-30) mmol/L BUN (7-17) mg/dL Glucose (74-99) mg/dL POC Glucose (mg/dL) (75-99) mg/dL Calcium (8.4-10.2) mg/dL Total Protein (6.3-8.2) g/dL Albumin (3.5-5.0) g/dL Urine Appearance Cloudy H (Clear) Urine Protein Trace H (Negative) Ur Leukocyte Esterase Moderate H (Negative) Urine WBC 9 H (0-5) /hpf Amorphous Sediment Occasional H (None) /hpf Hyaline Casts 252 H (0-2) /lpf Urine Mucus Occasional H (None) /hpf Microbiology - Last 24 Hours (Table) 07/17/17 01:20 Blood Culture - Preliminary Blood No Growth after 24 hours 07/17/17 14:18 Urine Culture - Preliminary Urine,Clean Catch Assessment and Plan (1) Community acquired pneumonia Status: Acute (2) Dehydration Status: Acute (3) Weakness Status: Acute (4) Diarrhea Status: Acute Plan: Improvement in her gastrointestinal distress is noted. Probable CVA. Appreciate neurology input. Check CBC and CP in a.m. per See orders otherwise. Question need for PT/OT.
[2017-07-18 09:19] LABS: CH 30.8; HCT 29.8 % (34.0-46.0); HDW 2.34; MCH 30.7 pg (25.0-35.0); MCHC 32.8 g/dL (31.0-37.0); MCV 93.7 fL (80.0-100.0); Mean Platelet Volume 7.3; RBC 3.18 m/uL (3.80-5.40); RDW 14.4 % (11.5-15.5); WBC 8.8 k/uL (3.8-10.6)
[2017-07-18 09:21] LABS: HGB 9.8 gm/dL (11.4-16.0)
[2017-07-18 09:22] LABS: ALT 20 U/L (9-52); AST 23 U/L (14-36); Alkaline Phosphatase 82 U/L (38-126); Anion Gap 8 mmol/L; Blood Urea Nitrogen 23 mg/dL (7-17); Calcium 8.5 mg/dL (8.4-10.2); Carbon Dioxide 18 mmol/L (22-30); Chloride 110 mmol/L (98-107); Glucose 100 mg/dL (74-99); Magnesium 1.9 mg/dL (1.6-2.3); Non-African American GFR(MDRD) 60 (>60 ml/min/1.73 sqM); Potassium 3.9 mmol/L (3.5-5.1); Sodium 136 mmol/L (137-145); Total Bilirubin 0.7 mg/dL (0.2-1.3); Total Protein 5.2 g/dL (6.3-8.2)
--- NOTE | 2017-07-18 09:28 | XR ---
EXAMINATION TYPE: XR chest 2V DATE OF EXAM: 07/18/2017 COMPARISON: 07/17/2017 TECHNIQUE: PA and lateral views submitted. HISTORY: Cough, pneumonia FINDINGS: Hypertrophic and degenerative changes spine noted. Diffuse osteopenia and arthropathy of the shoulder s. Left lower lobe infiltrate and small effusion stable. Tiny right effusion noted. Atherosclerotic c hange aorta. IMPRESSION: 1. Stable left lower lobe infiltrate and small effusion.
--- NOTE | 2017-07-18 10:40 | P.CNNES ---
History of Present Illness Consult date: 07/17/17 Reason for Consult: Patient being evaluated for generalized weakness and possible stroke. History of Present Illness: This patient is a 87-year-old right-handed white female who was admitted to the [facility] on 07/17/2017 with symptoms of generalized weakness and recent falls. Apparently the patient was living independently at home and had recently sustained a fall onto her left side. She sustained multiple bruises and contusions to the left arm and face area. Her daughters found her at home complaining of generalized weakness. This was a new finding as she was doing quite well earlier in the week. She had accompanied her daughter to [place] where they were visiting with other family members recently. She had no difficulty at that time. The patient was found to have generalized weakness and general medical debility and there was concern she may have underlying pneumonia. She was brought into the emergency room on 07/17/2017 for further evaluation. She was seen in the emergency room by Dr. Gillespie. She underwent a computed tomography scan of the brain and cervical spine due to the falls and multiple trauma. Computed tomography scan of the brain revealed no evidence of acute stroke. CT of the cervical spine revealed no evidence of acute fracture or dislocation. There was some degree of spondylosis. The patient was admitted and is being treated for community-acquired pneumonia. She also has evidence of dehydration. On neurological examination today at bedside the patient is noted to have evidence of severe aphasia. She has difficulty with her speech and is slurring her words. She is noted to have significant left- sided facial droop. She has left-sided hemiparesis left arm greater than left leg. Her clinical neurological exam findings at this time suggest an acute right hemispheric stroke. We have recommended she should undergo a complete stroke evaluation including MRI of the brain. The patient otherwise is able to answer questions. She does continue to show signs of dysphagia. Apparently according to the nursing staff she is on liquid diet and is been doing fairly well with this. The patient denies any previous history of TIA or stroke. She does have a remote history of TIA many years ago. The patient is now admitted and neurology has been consulted for further evaluation and recommendations. Review of Systems Constitutional: Denies chills, Denies fever Eyes: denies blurred vision, denies pain Ears, nose, mouth and throat: Denies headache, Denies sore throat Cardiovascular: Denies chest pain, Denies shortness of breath Respiratory: Denies cough Gastrointestinal: Denies abdominal pain, Denies diarrhea, Denies nausea, Denies vomiting Genitourinary: Denies dysuria, Denies hematuria Musculoskeletal: Denies myalgias Integumentary: Denies pruritus, Denies rash Neurological: Reports aphasia, Reports balance difficulties, Reports change in mentation, Reports change in speech, Reports confusion, Reports gait dysfunction , Reports lack of coordination, Reports motor disturbance, Reports paresthesias , Reports sensory deficit, Denies numbness, Denies weakness Psychiatric: Denies anxiety, Denies depression Endocrine: Denies fatigue, Denies weight change Past Medical History Past Medical History: GERD/Reflux, Hypertension, Osteoarthritis (OA) Additional Past Medical History / Comment(s): TIA several yrs ago History of Any Multi-Drug Resistant Organisms: None Reported Past Surgical History: Tonsillectomy Additional Past Surgical History / Comment(s): neck sx "don't know what kind of surgery" Past Anesthesia/Blood Transfusion Reactions: No Reported Reaction Past Psychological History: No Psychological Hx Reported Smoking Status: Former smoker Past Alcohol Use History: Occasional Past Drug Use History: None Reported - Past Family History Mother Family Medical History: Hypertension Additional Family Medical History / Comment(s): "born with hole in heart" Father Family Medical History: Myocardial Infarction ([place]) Medications and Allergies Home Medications Medication Instructions Recorded Confirmed Type Aspirin [Adult Low Dose Aspirin EC] 81 mg PO DAILY 05/23/17 07/17/17 History Gabapentin [Neurontin] 100 mg PO TID 05/23/17 07/17/17 History Lisinopril-Hctz 20-12.5 mg 1 tab PO BID 05/23/17 07/17/17 History [Zestoretic 20-12.5] Naproxen Sodium [Aleve] 220 mg PO Q12HR PRN 05/23/17 07/17/17 History Omeprazole 20 mg PO DAILY 05/23/17 07/17/17 History Allergies Allergy/AdvReac Type Severity Reaction Status Date / Time No Known Allergies Allergy Verified 07/17/17 08:35 Physical Examination - Vital Signs Vital Signs: Vital Signs Temp Pulse Pulse Resp BP BP Pulse Ox 07/17/17 22:07 98.1 F 07/17/17 21:36 100 F H 98 16 115/48 94 L 07/17/17 20:29 100 F H 99 16 115/48 94 L 07/17/17 17:00 97 16 07/17/17 15:00 98.1 F 97 16 137/57 97 07/17/17 07:40 97.7 F 74 14 108/42 99 07/17/17 04:12 97.4 F L 70 16 123/56 07/17/17 03:06 98.8 F 69 16 124/51 93 L 07/17/17 00:25 97.0 F L 66 16 112/50 94 L Intake and Output 07/17/17 07/17/17 07/17/17 06:59 14:59 22:59 Intake Total 870 920 Balance 870 920 Intake: IV 700 Sodium Chloride 0.9% 1, 700 000 ml @ 100 mls/hr IV . Q10H [facility] Rx#:[id number] Intake, IV Titration 750 100 Amount Levofloxacin 750Mg-D5w 150 Pmx 750 mg In Dextrose/ Water 1 150ml.bag @ 100 mls/hr IVPB ONCE STA Rx#: [id number] Levofloxacin 750Mg-D5w 100 Pmx 750 mg In Dextrose/ Water 1 150ml.bag @ 100 mls/hr IVPB Q24H [facility] Rx#: [id number] Magnesium Sulfate-D5w Pmx 300 1 gm In Dextrose/Water 1 100ml.bag @ 100 mls/hr IVPB Q1H [facility] Rx#: [id number] Sodium Chloride 0.9% 1, 300 000 ml @ 100 mls/hr IV . Q10H [facility] Rx#:[id number] Oral 120 120 Other: Voiding Method Bedside Commode Weight 72.575 kg - Constitutional General appearance: average body habitus, cooperative - EENT EENT: PERRL, mucous membranes moist - Respiratory Respiratory: lungs clear, normal breath sounds - Cardiovascular Cardiovascular: regular rate, normal S1, normal S2 Extremities: no peripheral edema bilaterally - Gastrointestinal Gastrointestinal: normoactive bowel sounds - Integumentary Integumentary: normal - Neurologic Cranial nerve examination: PERRL, EOMI, V1/V2/V3 grossly intact, tongue midline , intact gag reflex, intact corneal reflex, facial droop (Patient has evidence of a left upper motor neuron facial weakness.), normal palatal elevation Speech examination: intact Sensorimotor examination: intact Motor examination - right side: 4/5: biceps, triceps, wrist flexion, wrist extension, veneer gluer, hip flexors, knee extensors, dorsiflexion, toe extension (EHL) , plantarflexion Motor examination - left side: 3/5: biceps, triceps, wrist flexion, wrist extension, veneer gluer, hip flexors, knee extensors, dorsiflexion, toe extension (EHL) , plantarflexion Detailed sensory examination: intact Reflex and gait examination: intact Reflexes: 1+: ankle, bicep, knee, tricep - Musculoskeletal Musculoskeletal: no pain - Psychiatric Psychiatric: mood/affect appropriate, cooperative Results - Laboratory Findings CBC and BMP: 07/18/17 08:45 07/18/17 08:45 Abnormal Lab Findings: Abnormal Labs 07/17/17 07/17/17 07/17/17 01:20 01:20 01:20 WBC 19.4 H Plt Count 537 H Neutrophils # 14.5 H PT 12.5 H INR 1.3 H APTT 19.9 L Sodium 135 L Carbon Dioxide 18 L BUN 28 H Creatinine 1.10 H Glucose 177 H POC Glucose (mg/dL) Calcium Phosphorus 4.8 H Magnesium 1.0 L* Alkaline Phosphatase 127 H Total Protein 6.1 L Albumin 3.4 L TSH 4.760 H Urine Appearance Urine Protein Ur Leukocyte Esterase Urine WBC Amorphous Sediment Hyaline Casts Urine Mucus 07/17/17 07/17/17 07/17/17 09:58 10:30 10:30 WBC 12.2 H Plt Count Neutrophils # 9.5 H PT INR APTT Sodium 136 L Carbon Dioxide 19 L BUN 29 H Creatinine Glucose 110 H POC Glucose (mg/dL) 113 H Calcium 8.1 L Phosphorus Magnesium Alkaline Phosphatase Total Protein 5.4 L Albumin 3.0 L TSH Urine Appearance Urine Protein Ur Leukocyte Esterase Urine WBC Amorphous Sediment Hyaline Casts Urine Mucus 07/17/17 14:18 WBC Plt Count Neutrophils # PT INR APTT Sodium Carbon Dioxide BUN Creatinine Glucose POC Glucose (mg/dL) Calcium Phosphorus Magnesium Alkaline Phosphatase Total Protein Albumin TSH Urine Appearance Cloudy H Urine Protein Trace H Ur Leukocyte Esterase Moderate H Urine WBC 9 H Amorphous Sediment Occasional H Hyaline Casts 252 H Urine Mucus Occasional H Assessment and Plan (1) Acute right arterial ischemic stroke, MCA (middle cerebral artery) Status: Acute Code(s): I63.511 - CEREB INFRC D/T UNSP OCCLS OR STENOS OF RIGHT MID CEREB ART (2) Multiple falls Status: Acute Code(s): R29.6 - REPEATED FALLS (3) Debility Status: Acute Code(s): R53.81 - OTHER MALAISE (4) Community acquired pneumonia Status: Acute Code(s): J18.9 - PNEUMONIA, UNSPECIFIED ORGANISM Plan: This patient is a pleasant 87-year-old female who was admitted to Hospital after sustaining multiple falls at home. Patient recently fell onto her left side and has sustained multiple contusions and abrasions. She was brought in to the emergency room at [facility] for further evaluation earlier today. She was seen in the ER by Dr. Gillespie. She underwent a computed tomography scan of the brain and cervical spine the results of which are noted above. Patient was subsequent admitted to the hospital. Her neurological examination at this time reveals her to have evidence of acute aphasia. She has left-sided facial droop. There is a left pronator drift with left hemiparesis. This patient is suffered an acute right hemispheric stroke. We have recommended a complete stroke evaluation for the patient. We will place the patient on aspirin for secondary stroke prevention at this time and will await her further stroke workup. Her overall prognosis at this time remains very guarded. Time with Patient: Greater than 30
--- NOTE | 2017-07-18 11:38 | MR ---
"EXAMINATION TYPE: MR brain wo con DATE OF EXAM: 07/18/2017 COMPARISON: CT brain from yesterday. HISTORY: Patient with left sided weakness. Admitted with fall and history of CVA one day earlier. TECHNIQUE: Multiplanar, multisequence imaging of the brain and brainstem is performed without IV cont rast. FINDINGS: Diffusion weighted images demonstrate areas of increased signal on diffusion weighted images with dim inished signal on ADC mapping, there is most prominent area right parietal region near image 168 seri es 305 measuring roughly 7 x 4.5 cm. There are additional areas of involvement in the subcortical rig ht frontal white matter. There is additional involvement in the right cerebellar hemisphere. These ar eas show T1 hypointensity and T2 hyperintensity. A punctate area may be present involving the left a nterior thalamus seen on image 128 series 305 on diffusion weighted images and ADC mapping without de finitive increased T2 signal. There is ventricular and sulcal prominence consistent with diffuse cerebral atrophy. There are foci o f T2 hyperintensity seen throughout the deep and periventricular white matter. Midline structures demonstrate normal morphology. The craniocervical junction appears within normal limits. Normal vascular flow voids are present. The visualized sinuses are clear and the globes are i ntact. Hyperostosis frontalis is redemonstrated. IMPRESSION: 1. Multiple right-sided infarcts with relative sparing of right temporal lobe, largest infarct is rig ht parietal region. Involvement of right cerebellum is noted. Cannot exclude punctate acute infarct a nterior left thalamus. 2. There is background of mild to moderate diffuse cerebral atrophy and chronic small vessel ischemic change noted. A Yellow message has been communicated to Sathya Powers MD via the [employer] | Critical Re sult system on 07/18/2017 11:35 AM, Message ID [id number]."
[2017-07-18] MEDS: ASPIRIN 81 MG PO SCH (12:08)
[2017-07-18] MEDS: GABAPENTIN 100 MG CAP PO SCH ×3 (12:08→21:05)
[2017-07-18] MEDS: LISINOPRIL-HCTZ 20-12.5 MG 1 EACH TAB PO SCH ×2 (12:08→19:46)
[2017-07-18] MEDS: ENOXAPARIN 40 MG/0.4 ML SYRINGE SQ SCH (12:09)
[2017-07-18] MEDS: PANTOPRAZOLE 40 MG TABLET PO SCH (12:09)
[2017-07-18] MEDS: SODIUM CHLORIDE 0.9% 1,000 ML IV SCH (12:18)
[2017-07-18] MEDS: ACETAMINOPHEN TAB 325 MG TAB PO PRN (15:24)
--- NOTE | 2017-07-18 23:08 | P.PN ---
Subjective This patient is a 87-year-old female who was seen yesterday on neurology consultation for evaluation of multiple falls and left-sided weakness. On neurological examination yesterday the patient showed evidence of severe left- sided facial droop and left hemiparesis arm greater than leg. She had slurring of her speech. She was sent for MRI of the brain today for further evaluation of acute right hemispheric stroke. MRI was completed today and reveals evidence of multiple right-sided infarcts the largest occurring in the right parietal lobe. There was involvement of the right cerebellum as well. There is also questionable area of infarction involving the left thalamus. Clearly the right hemispheric infarctions are her main finding on the MRI study today. Given these multiple areas and multiple vascular territories of the brain this suggests possibility of cardioembolic stroke. We've recommended a cardiology consultation for further evaluation with ALICIA procedure to rule out PFO and/or atrial thrombus. We will consult cardiology for further evaluation for ALICIA. Neurologically the patient remains stable. We have explained the results of the MRI of the brain today to her in detail. We will continue our stroke workup for this patient. Her overall prognosis at this time remains guarded. We will continue close neurological follow-up of this patient during this admission. We will attempt to contact this patient's daughters to update them on the results of her MRI that was done today. As noted her overall prognosis at this time remains very guarded. Objective - Vital Signs Vital signs: Vital Signs Temp 97.8 F 07/18/17 15:00 Pulse 89 07/18/17 17:01 Resp 16 07/18/17 17:01 BP 173/66 07/18/17 15:00 Pulse Ox 99 07/18/17 16:09 Intake & Output 07/17/17 07/18/17 07/18/17 18:59 06:59 18:59 Intake Total 920 50 300 Balance 920 50 300 Intake: IV 700 Sodium Chloride 0.9% 1, 700 000 ml @ 100 mls/hr IV . Q10H [facility] Rx#:[id number] Intake, IV Titration 100 Amount Levofloxacin 750Mg-D5w 100 Pmx 750 mg In Dextrose/ Water 1 150ml.bag @ 100 mls/hr IVPB Q24H [facility] Rx#: [id number] Oral 120 50 300 Other: Voiding Method Bedside Commode Bedside Commode Bedside Commode Incontinent # Voids 2 6 - Exam Physical examination: PHYSICAL EXAMINATION: Patient is resting comfortably in bed. VITAL SIGNS: Blood pressure is [173/67]. Heart rate is [89]. Respiration is [16] . Temperature is [97.8]. HEENT: Head is atraumatic, neck is supple, there were no carotid bruits. CHEST: Lungs are clear to auscultation and percussion. CARDIAC: S1, S2 normal rate and rhythm. There is no murmur. ABDOMEN: Soft and nontender. Bowel sounds are present. EXTREMITIES: There is no pedal edema. Peripheral pulses are present. Neurological examination: Patient's neurological examination is unchanged from yesterday. She has evidence of a left facial droop with upper motor neuron findings. She has a left pronator drift and left-sided hemiparesthesias. Her speech remains dysphasic. - Labs CBC & Chem 7: 07/18/17 08:45 07/18/17 08:45 Labs: Abnormal Lab Results - Last 24 Hours (Table) 07/18/17 07/18/17 Range/Units 08:45 08:45 RBC 3.18 L (3.80-5.40) m/uL Hgb 9.8 L D (11.4-16.0) gm/dL Hct 29.8 L (34.0-46.0) % Sodium 136 L (137-145) mmol/L Chloride 110 H (98-107) mmol/L Carbon Dioxide 18 L (22-30) mmol/L BUN 23 H (7-17) mg/dL Glucose 100 H (74-99) mg/dL Total Protein 5.2 L (6.3-8.2) g/dL Albumin 2.8 L (3.5-5.0) g/dL Microbiology - Last 24 Hours (Table) 07/17/17 01:20 Blood Culture - Preliminary Blood No Growth after 24 hours 07/17/17 14:18 Urine Culture - Preliminary Urine,Clean Catch Assessment and Plan (1) Acute right arterial ischemic stroke, MCA (middle cerebral artery) Status: Acute Code(s): I63.511 - CEREB INFRC D/T UNSP OCCLS OR STENOS OF RIGHT MID CEREB ART (2) Multiple falls Status: Acute Code(s): R29.6 - REPEATED FALLS (3) Debility Status: Acute Code(s): R53.81 - OTHER MALAISE (4) Community acquired pneumonia Status: Acute Code(s): J18.9 - PNEUMONIA, UNSPECIFIED ORGANISM Plan: This patient is a pleasant 87-year-old female who was admitted to Hospital after sustaining multiple falls at home. Patient recently fell onto her left side and has sustained multiple contusions and abrasions. She was brought in to the emergency room at [facility] for further evaluation earlier today. She was seen in the ER by Dr. Gillespie. She underwent a computed tomography scan of the brain and cervical spine the results of which are noted above. Patient was subsequent admitted to the hospital. Her neurological examination at this time reveals her to have evidence of acute aphasia. She has left-sided facial droop. There is a left pronator drift with left hemiparesis. This patient is suffered an acute right hemispheric stroke. We have recommended a complete stroke evaluation for the patient. The patient was able to complete MRI of the brain today. MRI films were reviewed today and does reveal evidence of multiple right-sided acute stroke. There is also questionable acute infarction in the left thalamus. The MRI findings are highly suggesting cardioembolic stroke as the etiology of her current clinical symptoms. We have recommended a cardiology consultation for evaluation of possible ALICIA procedure for this patient. Depending on the results of the ALICIA procedure further recommendations will be given. We will continue close neurological follow-up with this patient during this admission. Her overall prognosis at this time remains very guarded. We will place the patient on aspirin for secondary stroke prevention at this time and will await her further stroke workup. The results of her MRI of the brain was reviewed today with the patient's daughter Eulalia who is her patient advocate and power of mechanical engineering director. Apparently she was living with her for the past 10 years. The daughter is now in the [facility] however still was updated on the results of her MRI that was obtained today. She will conveyed this to her other siblings who were locally based here and [place]. Eulalia has been made aware of the patient's guarded condition given this recent MRI finding. The patient remains stable at this time. We will put her on neuro checks overnight. We will await further recommendations from cardiology in regards to her ALICIA procedure. Nursing staff was updated on her current treatment plans. We will continue close neurological follow-up of this patient during this admission. Her overall prognosis at this time remains very guarded.
--- NOTE | 2017-07-19 04:22 | CT ---
EXAM: CT Head Without Intravenous Contrast CLINICAL HISTORY: Reason: code stroke TECHNIQUE: Axial computed tomography images of the head/brain without intravenous contrast. Coronal and sagittal reformats were obtained. CTDI is 57.40 mGy and DLP is 1150.50 mGy-cm. This CT exam was performed using one or more of the following dose reduction techniques: automated exposure control, adjustment of the mA and/or kV according to patient size, and/or use of iterative reconstruction technique. COMPARISON: CT head 07/17/17 FINDINGS: Brain: New large area of focal hypoattenuation and loss of kirkpatrick-white differentiation in the posterior right frontal lobe and adjacent parietal lobe. Additional smaller foci of hypoattenuation in the right frontal lobe and right cerebellar hemisphere. Findings are suspicious for acute to subacute infarcts. No acute intracranial hemorrhage. No significant midline shift. Global volume loss. Periventricular white matter hypodensities, likely chronic small vessel disease. Ventricles: No ventriculomegaly. Bones/joints: Unremarkable. No acute fracture. Sinuses: No acute sinusitis. Mastoid air cells: Unremarkable as visualized. No mastoid effusion. IMPRESSION: New large area of focal hypoattenuation and loss of kirkpatrick-white differentiation in the posterior right frontal and adjacent parietal lobes. Additional smaller foci of hypoattenuation in the right frontal lobe and right cerebellar hemisphere. Findings are suspicious for acute to subacute infarcts. MRI could be used for further evaluation. [employer] 07/19/17 04:32 Call Doctor Regarding Stroke, called Dr. Powers on 07/19 04:31 (-04:00)
[2017-07-19] MEDS ORDERED: DEXAMETHASONE SOD PHOSPHATE 10 MG/ML 1 ML VIAL IV STA (04:58)
--- NOTE | 2017-07-19 05:24 | P.PN ---
Subjective Dr. Alexa Powers was notified of change in this patient's mental status at 3:30 AM on 07/19/2017. Patient had symptoms of worsening right hemispheric stroke. This patient is a 87-year-old right-handed white female who was initially admitted to [facility] on 07/17/2017 with symptoms of multiple falls and generalized weakness. On her initial neurological examination the patient was found to have evidence of significant left-sided weakness. She underwent a MRI of the brain yesterday which did reveal evidence of multiple areas of acute infarction involving the right hemisphere of the brain. Given the multiple areas of acute infarction it was felt she likely had a cardioembolic stroke. Cardiology was consulted yesterday for evaluation of possible ALICIA procedure for this patient to further evaluate for PFO and/or atrial thrombus. The patient was seen yesterday evening on 07/18/2017 and appeared to show signs of some improvement in her speech. Early this morning at about 3 AM the nurse taking care of the patient noticed that she was having much more difficulty with her speech. She was much more dysarthric and dysphasic. Her left-sided weakness also significantly worsen. A code stroke was initiated and Dr. Alexa Powers was contacted by pager. We recommended a stat computed tomography scan of the brain to be done. This was completed this morning and the results indicate evidence of her large right frontal and parietal lobe stroke. He was also area involving the right frontal lobe and right cerebellar hemisphere. These are the same areas that was noted on the MRI of the brain that was done yesterday. Radiologist did not see any evidence of hemorrhagic transformation. We have recommended that the patient should be transferred into the intensive care unit for close supervision. We will start her on IV Decadron 10 mg IV push followed with a maintenance dose of 6 mg every 4 hours. The patient was reexamined this morning at 4:30 AM at her bedside. She seems to be resting comfortably. Her speech once again shows improvement from earlier this morning. She at this time seems to be near the level of function as she was last night. Her speech is dysarthric but not severe. She is noted to have left-sided hemiparesthesias. This also does not seem changed from yesterday. The code stroke voice network administrator and nurse supervisor picking crew did contact the patient's daughter and son. They have made the patient a DO NOT RESUSCITATE CODE STATUS at this time. As noted she will be transferred up to the intensive care unit this morning as soon as a bed is available. The patient is now resting comfortably. We will continue close neurological follow- up of this patient in the intensive care unit. Her overall prognosis at this time remains very guarded. Objective - Vital Signs Vital signs: Vital Signs Temp 98.2 F 07/18/17 20:01 Pulse 107 H 07/19/17 04:15 Resp 16 07/19/17 04:15 BP 213/88 07/19/17 04:15 Pulse Ox 97 07/19/17 03:45 Intake & Output 07/18/17 07/18/17 07/19/17 06:59 18:59 06:59 Intake Total 50 300 800 Balance 50 300 800 Intake: IV 800 Sodium Chloride 0.9% 1, 800 000 ml @ 100 mls/hr IV . Q10H MILDRED Rx#:[id number] Oral 50 300 Other: Voiding Method Bedside Commode Bedside Commode Bedside Commode Incontinent Diaper Incontinent # Voids 2 6 2 - Exam Physical examination: PHYSICAL EXAMINATION: Patient is resting comfortably in bed. VITAL SIGNS: Blood pressure is [212/88]. Heart rate is [107]. Respiration is [16 ]. Temperature is [98.2]. HEENT: Head is atraumatic, neck is supple, there were no carotid bruits. CHEST: Lungs are clear to auscultation and percussion. CARDIAC: S1, S2 normal rate and rhythm. There is no murmur. ABDOMEN: Soft and nontender. Bowel sounds are present. EXTREMITIES: There is no pedal edema. Peripheral pulses are present. Neurological examination: Patient's neurological examination is unchanged from yesterday. She has evidence of a left facial droop with upper motor neuron findings. She has a left pronator drift and left-sided hemiparesthesias. Her speech remains dysphasic. Patient's speech appears to be stable at this time. Apparently earlier this morning she had very severe garbled speech and hard to comprehend. She now seems to be back to her baseline as she was yesterday evening. Her aphasia seems to be back seeing and waning. This will be closely monitored. - Labs CBC & Chem 7: 07/18/17 08:45 07/18/17 08:45 Labs: Abnormal Lab Results - Last 24 Hours (Table) 07/18/17 07/18/17 Range/Units 08:45 08:45 RBC 3.18 L (3.80-5.40) m/uL Hgb 9.8 L D (11.4-16.0) gm/dL Hct 29.8 L (34.0-46.0) % Sodium 136 L (137-145) mmol/L Chloride 110 H (98-107) mmol/L Carbon Dioxide 18 L (22-30) mmol/L BUN 23 H (7-17) mg/dL Glucose 100 H (74-99) mg/dL Total Protein 5.2 L (6.3-8.2) g/dL Albumin 2.8 L (3.5-5.0) g/dL Microbiology - Last 24 Hours (Table) 07/17/17 14:18 Urine Culture - Final Urine,Clean Catch 07/17/17 01:20 Blood Culture - Preliminary Blood No Growth after 24 hours Assessment and Plan (1) Acute right arterial ischemic stroke, MCA (middle cerebral artery) Status: Acute Code(s): I63.511 - CEREB INFRC D/T UNSP OCCLS OR STENOS OF RIGHT MID CEREB ART (2) Multiple falls Status: Acute Code(s): R29.6 - REPEATED FALLS (3) Debility Status: Acute Code(s): R53.81 - OTHER MALAISE (4) Community acquired pneumonia Status: Acute Code(s): J18.9 - PNEUMONIA, UNSPECIFIED ORGANISM Plan: This patient is a 87-year-old right-handed white female who initially was admitted to [facility] with symptoms of multiple falls and generalized weakness. Patient was brought into the emergency room and underwent an initial computed tomography scan of the brain which was reported negative for any acute stroke or hemorrhage. Patient was seen none neurology consultation and clearly had evidence of left-sided hemiparesis. She has a left facial droop as well as evidence of an expressive aphasia. She was recommended to undergo MRI of the brain which was completed yesterday. MRI revealed multiple areas of acute infarction involving the right hemisphere. There was no evidence of hemorrhagic transformation. We have recommended cardiology to be consulted for further evaluation for ALICIA procedure for this patient. The patient was seen yesterday evening on neurology follow-up. At that time she showed slight improvement with her speech which was less dysphasic. This morning at about 3 AM the patient showed worsening signs of left-sided weakness and worsening aphasia. A code stroke was initiated. Dr. Alexa Powers was notified by pager of her sudden decline and change. Patient was seen at 4:30 AM on the 5 E. medical floor. She once again seem to be back to her baseline. She did not demonstrate evidence of severe aphasia at this time. Her left-sided hemiparesis appears to be unchanged from previous. The patient was sent for a repeat computed tomography scan of the brain given the changes in her neurological status. CAT scan was reported by the radiologist today are showing new areas of right frontal and parietal lobe infarction. There is also area of infarction involving the right cerebellar hemisphere. These findings were noted on her MRI of the brain that was done yesterday. Given her current change in her neurological status we have recommended that she be transferred to the intensive care unit for close monitoring. The nursing staff did contact the patient's daughter and son. They have now made the patient a DO NOT RESUSCITATE status. We will transfer this patient to the intensive care unit once a bed becomes available. We will start her on IV Decadron 10 mg IV push followed by maintenance dose of IV Decadron 6 mg every 4 hours. We will plan to get a repeat computed tomography scan of the brain tomorrow as a short-term follow-up. The patient is able to answer questions appropriately this morning. We will need to put her on neuro checks with close monitoring in the ICU. We will continue close neurological follow-up of this patient during this admission. We will contact the patient's daughter by phone later this morning to update her on her overall neurological status. Her overall prognosis at this time remains very guarded. Time with Patient: Greater than 30
[2017-07-19 06:14] LABS: Basophils % (A) 0 %; CHCM 33.5; Eosinophils # (A) 0.1 k/uL (0-0.7); Eosinophils % (A) 1 %; HCT 30.2 % (34.0-46.0); HDW 2.36; HGB 9.8 gm/dL (11.4-16.0); Luc % (Auto) 1; Lymphocytes # (A) 2.2 k/uL (1.0-4.8); Lymphocytes % (A) 25 %; MCHC 32.3 g/dL (31.0-37.0); MCV 92.9 fL (80.0-100.0); Mean Platelet Volume 7.3; Monocytes # (A) 0.4 k/uL (0-1.0); Monocytes % (A) 4 %; Neutrophils # (A) 6.1 k/uL (1.3-7.7); Neutrophils % (A) 69 %; RBC 3.25 m/uL (3.80-5.40); RDW 14.3 % (11.5-15.5); WBC 8.9 k/uL (3.8-10.6); WBC (Perox) 9.33
[2017-07-19 06:24] LABS: ALT 27 U/L (9-52); AST 25 U/L (14-36); Alkaline Phosphatase 98 U/L (38-126); Anion Gap 6 mmol/L; Blood Urea Nitrogen 13 mg/dL (7-17); Carbon Dioxide 21 mmol/L (22-30); Chloride 107 mmol/L (98-107); Creatine Kinase 130 U/L (30-135); Glucose 91 mg/dL (74-99); INR 1.1 (<1.2); Non-African American GFR(MDRD) >60 (>60 ml/min/1.73 sqM); Potassium 3.4 mmol/L (3.5-5.1); Prothrombin Time 10.9 sec (9.0-12.0); Sodium 134 mmol/L (137-145); Total Bilirubin 0.8 mg/dL (0.2-1.3); Total Protein 5.1 g/dL (6.3-8.2)
[2017-07-19] MEDS: SODIUM CHLORIDE 0.9% 1,000 ML IV SCH ×3 (06:26→15:23)
[2017-07-19 06:40] LABS: Glucose,Whole Blood 88 mg/dL (75-99)
[2017-07-19 06:52] LABS: Creatine Kinase MB 1.7 ng/mL (0.0-2.4)
[2017-07-19 06:55] LABS: Troponin I 0.053 ng/mL (0.000-0.034)
--- NOTE | 2017-07-19 07:38 | P.PN ---
Subjective Principal diagnosis: CVA signs/facial droop. The patient is an 87-year-old white female essentially admitted for pneumonia with fall and a left foot abnormalities. Unfortunately, she's developed CVA. She's now been transferred to the ICU secondary to code stroke element. She states she does not want to have any aggressive maneuvers. She is quite lucid otherwise. She has strength in the left upper extremity, however she has significant lack of feeling on the left upper extremity. Objective - Vital Signs Vital signs: Vital Signs Temp 98.2 F 07/18/17 20:01 Pulse 105 H 07/19/17 05:15 Resp 16 07/19/17 05:15 BP 184/79 07/19/17 05:15 Pulse Ox 98 07/19/17 05:15 Intake & Output 07/18/17 07/19/17 07/19/17 18:59 06:59 18:59 Intake Total 300 800 Balance 300 800 Intake: IV 800 Sodium Chloride 0.9% 1, 800 000 ml @ 100 mls/hr IV . Q10H MILDRED Rx#:[id number] Oral 300 Other: Voiding Method Bedside Commode Bedside Commode Diaper Incontinent # Voids 6 2 - Constitutional General appearance: Present: average body habitus - EENT Eyes: Absent: abnormal pupil - Respiratory Respiratory: bilateral: CTA - Cardiovascular Rhythm: regular Heart sounds: normal: S1, S2 Abnormal Heart Sounds: Absent: S3 Gallop - Gastrointestinal General gastrointestinal: Present: soft. Absent: tenderness - Neurologic Neurologic: Present: focal deficits - Musculoskeletal Musculoskeletal: Present: left sided weakness - Labs CBC & Chem 7: 07/19/17 05:42 07/19/17 05:42 Labs: Abnormal Lab Results - Last 24 Hours (Table) 07/18/17 07/18/17 07/19/17 Range/Units 08:45 08:45 05:42 RBC 3.18 L (3.80-5.40) m/uL Hgb 9.8 L D (11.4-16.0) gm/dL Hct 29.8 L (34.0-46.0) % Sodium 136 L 134 L (137-145) mmol/L Potassium 3.4 L (3.5-5.1) mmol/L Chloride 110 H (98-107) mmol/L Carbon Dioxide 18 L 21 L (22-30) mmol/L BUN 23 H (7-17) mg/dL Glucose 100 H (74-99) mg/dL Troponin I (0.000-0.034) ng/mL Total Protein 5.2 L 5.1 L (6.3-8.2) g/dL Albumin 2.8 L 2.8 L (3.5-5.0) g/dL 07/19/17 07/19/17 Range/Units 05:42 05:42 RBC 3.25 L (3.80-5.40) m/uL Hgb 9.8 L (11.4-16.0) gm/dL Hct 30.2 L (34.0-46.0) % Sodium (137-145) mmol/L Potassium (3.5-5.1) mmol/L Chloride (98-107) mmol/L Carbon Dioxide (22-30) mmol/L BUN (7-17) mg/dL Glucose (74-99) mg/dL Troponin I 0.053 H* (0.000-0.034) ng/mL Total Protein (6.3-8.2) g/dL Albumin (3.5-5.0) g/dL Microbiology - Last 24 Hours (Table) 07/17/17 01:20 Blood Culture - Preliminary Blood No Growth after 48 hours 07/17/17 14:18 Urine Culture - Final Urine,Clean Catch Assessment and Plan (1) Community acquired pneumonia Status: Acute (2) Dehydration Status: Acute (3) Weakness Status: Acute (4) Diarrhea Status: Acute Plan: We'll continue to follow with neurology. Citra therapy as needed with PT/OT. See orders otherwise. Time with Patient: Greater than 30
[2017-07-19] MEDS: LISINOPRIL-HCTZ 20-12.5 MG 1 EACH TAB PO SCH ×2 (08:31→21:22)
[2017-07-19] MEDS: ASPIRIN 81 MG PO SCH (08:31)
[2017-07-19] MEDS: GABAPENTIN 100 MG CAP PO SCH ×3 (08:31→21:22)
[2017-07-19] MEDS: PANTOPRAZOLE 40 MG/10 ML VIAL IV SCH (08:32)
[2017-07-19] MEDS: POTASSIUM CHLORIDE 10 MEQ, LIDOCAINE 2% INJ 10 MG in SODIUM CHLORIDE 0.9% 100 ML IV SCH ×3 (08:32→13:33)
[2017-07-19] MEDS: ENOXAPARIN 40 MG/0.4 ML SYRINGE SQ SCH (08:32)
[2017-07-19 10:29] LABS: Appearance,Urine Clear (Clear); Bilirubin,Urine Negative (Negative); Glucose,Urine (UA) Negative (Negative); Ketones,Urine Trace (Negative); Leukocyte Esterase,Urine Negative (Negative); Mucus,Urine Rare /hpf; Nitrite,Urine Negative (Negative); Particle Count 294; Protein,Urine 1+ (Negative); RBC,Urine 1 /hpf (0-5); Specific Gravity,Urine 1.006 (1.001-1.035); UA Billing (MACRO vs. MICRO) MICRO; Urobilinogen,Urine <2.0 mg/dL (<2.0)
--- NOTE | 2017-07-19 10:57 | P.CNPUL ---
History of Present Illness Consult date: 07/19/17 Chief complaint: CVA History of present illness: 87-year-old female patient who got transferred to the intensive care unit because of stroke in progression. The patient was noted to have worsening in the left-sided weakness and she also developed some left facial droop. Note that the patient was admitted to the hospital on 07/17/2017 for symptoms weakness.. The patient was having generalized weakness and recent falls. Apparently this was a new finding knowing that the patient was doing well prior. The patient while in the hospital was found to have an underlying pneumonia. As part of her workup, a CAT scan of the brain was done that showed no evidence of any stroke. CAT scan of the cervical spine showed no evidence of an acute fracture or dislocation. He was some degree of spondylosis. The patient was being treated for community acquired pneumonia and dehydration. The patient subsequently was seen by neurology for some evolving left-sided weakness. She was also having some difficulties with her speech and his words were slurred. She was noted to have significant left-sided facial droop in addition. She had a left-sided paresis which was greater than the left upper extremity compared to the left lower extremity. Her neurologic exam was consistent with a right hemispheric CVA. Based on this, the patient underwent a stroke evaluation. A MRI of the brain was also completed on 07/18/2017 and showed multiple areas of a right-sided infarct with rapid spreading of the right temporal lobe, largest infarct was in the right parietal region and was also involving the right cerebellum. Cannot exclude the possibility of a punctate acute infarcts involving the anterior left thalamus. There was also background [id number] diffuse atrophy. The patient was placed on aspirin 81 mg on a daily basis. The patient was placed on Decadron. The patient was asked to have a ALICIA done suspecting an embolic phenomena/embolic CVAs. Please refer to the neurologist note for detailed evaluation. Meanwhile, last night the patient's symptoms have gotten worse and she came to the intensive care unit and CAT scan of the brain showed a new large area of focal hypoattenuation in the right frontal lobe adjacent parietal lobes were also involved. Additional smaller foci of hypoattenuation was seen in the right frontal lobe and right cerebellar infarct was also suspected. This was inconsistent with the MRI findings and was a stroke in evolution. The patient this morning has a slurred speech. She is coherent. She is talking. She is communicating. Left side is weak especially in the left upper extremity. She continues to have left-sided facial droop. The patient has a normal cardiac rhythm and there is no report atrial fibrillation. The chest x- ray from yesterday showed a dense consolidation of the left lower lobe consistent with pneumonia and the patient is currently on Levaquin only. No reported aspiration. Her swallow evaluation was done this morning and she swallowed fine. Review of Systems Constitutional: Reports fatigue, Reports weakness Eyes: denies blurred vision, denies bulging eye, denies decreased vision Ears: deny: decreased hearing, ear discharge, earache Ears, nose, mouth and throat: Denies headache, Denies sore throat Cardiovascular: Denies chest pain, Denies shortness of breath Respiratory: Reports respiratory infections Gastrointestinal: Denies abdominal pain, Denies diarrhea, Denies nausea, Denies vomiting Genitourinary: Denies dysuria, Denies hematuria Musculoskeletal: absent: ankle pain, ankle stiffness, ankle swelling Integumentary: Denies pruritus, Denies rash Neurological: Reports balance difficulties, Reports change in speech, Reports gait dysfunction, Reports weakness Psychiatric: Denies anxiety, Denies depression Endocrine: Denies fatigue, Denies weight change Past Medical History Past Medical History: GERD/Reflux, Hypertension, Osteoarthritis (OA) Additional Past Medical History / Comment(s): Previous history of CVA, hypertension, acid reflux, osteoarthritis. History of Any Multi-Drug Resistant Organisms: None Reported Past Surgical History: Tonsillectomy Additional Past Surgical History / Comment(s): neck sx "don't know what kind of surgery" Past Anesthesia/Blood Transfusion Reactions: No Reported Reaction Past Psychological History: No Psychological Hx Reported Smoking Status: Former smoker Past Alcohol Use History: Occasional Past Drug Use History: None Reported - Past Family History Mother Family Medical History: Hypertension Additional Family Medical History / Comment(s): "born with hole in heart" Father Family Medical History: Myocardial Infarction (NH) Medications and Allergies Home Medications Medication Instructions Recorded Confirmed Type Aspirin [Adult Low Dose Aspirin EC] 81 mg PO DAILY 05/23/17 07/17/17 History Gabapentin [Neurontin] 100 mg PO TID 05/23/17 07/17/17 History Lisinopril-Hctz 20-12.5 mg 1 tab PO BID 05/23/17 07/17/17 History [Zestoretic 20-12.5] Naproxen Sodium [Aleve] 220 mg PO Q12HR PRN 05/23/17 07/17/17 History Omeprazole 20 mg PO DAILY 05/23/17 07/17/17 History Allergies Allergy/AdvReac Type Severity Reaction Status Date / Time No Known Allergies Allergy Verified 07/17/17 08:35 Physical Exam Vitals: Vital Signs Temp Pulse Resp BP BP Pulse Ox 07/19/17 09:59 97 16 185/78 98 07/19/17 09:24 98 07/19/17 09:00 101 H 16 178/68 98 07/19/17 08:00 98.4 F 100 14 180/78 98 07/19/17 05:15 105 H 16 184/79 98 07/19/17 04:15 107 H 16 213/88 07/19/17 03:45 111 H 16 210/123 97 07/19/17 02:00 16 07/18/17 20:02 162/58 07/18/17 20:01 98.2 F 78 15 220/80 94 L 07/18/17 19:53 84 182/75 100 07/18/17 17:01 89 16 07/18/17 16:09 99 07/18/17 15:54 97 07/18/17 15:00 97.8 F 89 16 173/66 91 L Intake and Output 07/18/17 07/19/17 07/19/17 22:59 06:59 14:59 Intake Total 800 40 200 Output Total 575 825 Balance 800 -535 -625 Intake: IV 800 40 0 Sodium Chloride 0.9% 1, 800 40 0 000 ml @ 100 mls/hr IV . Q10H [facility]DRED Rx#:[id number] Intake, IV Titration 200 Amount Potassium Chloride 10 meq 200 Lidocaine 2% Inj 10 mg In Sodium Chloride 0.9% 100 ml @ 100 mls/hr IV Q1HR MILDRED Rx#:[id number] Output: Urine 575 825 Other: Voiding Method Bedside Commode Bedside Commode Indwelling Catheter Diaper Incontinent # Voids 2 2 Gen. appearance she is calm and comfortable likely distress. Head is atraumatic normocephalic. Neck is supple and there is no JVDs no goiter or neck masses. The patient has left facial weakness. She has a positive gag and a positive coughing reflex. Pupils are equal and reactive to light. No nystagmus.Lungs were clear to auscultation and percussion, and with normal diaphragmatic excursion. No wheezes or rales were noted. A normal heartCardiac exam revealed the PMI to be normally situated and sized. The rhythm was regular and no extrasystoles were noted during several minutes of auscultation. The first and second heart sounds were normal and physiologic splitting of the second heart sound was noted. There were no murmurs, rubs, clicks, or gallops. No abdomenAbdominal exam revealed normal bowel sounds. The abdomen was soft, non -tender, and without masses, organomegaly, or appreciable enlargement of the abdominal aorta.Examination of the extremities revealed easily palpable radial, femoral and pedal pulses. There was no cyanosis, clubbing or edema. Skin examination is within normal and there is no evidence of cellulitis or any ulceration. Neurologic exam Cranial nerve examination: PERRL, EOMI, V1/V2/V3 grossly intact, tongue midline, intact gag reflex, intact corneal reflex, facial droop (Patient has evidence of a left upper motor neuron facial weakness. ), normal palatal elevation Speech examination: Slurred speech however she is able to speak Sentences. Sensory examination: Impaired on the left Motor examination - right side: 4/5: biceps, triceps, wrist flexion, wrist extension, dramatic coach, hip flexors, knee extensors, dorsiflexion, toe extension (EHL), plantarflexion Motor examination - left side: 2/5: biceps, triceps, wrist flexion, wrist extension, dramatic coach, hip flexors, knee extensors, dorsiflexion, toe extension (EHL) , plantarflexion Reflex and gait examination: intact Reflexes: 1+: ankle, bicep , knee, tricep Results - Laboratory Findings CBC and BMP: 07/19/17 05:42 07/19/17 05:42 PT/INR, D-dimer PT 10.9 sec (9.0-12.0) 07/19/17 05:42 INR 1.1 (<1.2) 07/19/17 05:42 Abnormal lab findings: Abnormal Labs 07/17/17 07/17/17 07/17/17 01:20 01:20 01:20 WBC 19.4 H RBC Hgb Hct Plt Count 537 H Neutrophils # 14.5 H PT 12.5 H INR 1.3 H APTT 19.9 L Sodium 135 L Potassium Chloride Carbon Dioxide 18 L BUN 28 H Creatinine 1.10 H Glucose 177 H POC Glucose (mg/dL) Calcium Phosphorus 4.8 H Magnesium 1.0 L* Alkaline Phosphatase 127 H Troponin I Total Protein 6.1 L Albumin 3.4 L TSH 4.760 H Urine Appearance Urine Protein Urine Ketones Urine Blood Ur Leukocyte Esterase Urine WBC Amorphous Sediment Hyaline Casts Urine Mucus 07/17/17 07/17/17 07/17/17 09:58 10:30 10:30 WBC 12.2 H RBC Hgb Hct Plt Count Neutrophils # 9.5 H PT INR APTT Sodium 136 L Potassium Chloride Carbon Dioxide 19 L BUN 29 H Creatinine Glucose 110 H POC Glucose (mg/dL) 113 H Calcium 8.1 L Phosphorus Magnesium Alkaline Phosphatase Troponin I Total Protein 5.4 L Albumin 3.0 L TSH Urine Appearance Urine Protein Urine Ketones Urine Blood Ur Leukocyte Esterase Urine WBC Amorphous Sediment Hyaline Casts Urine Mucus 07/17/17 07/18/17 07/18/17 14:18 08:45 08:45 WBC RBC 3.18 L Hgb 9.8 L D Hct 29.8 L Plt Count Neutrophils # PT INR APTT Sodium 136 L Potassium Chloride 110 H Carbon Dioxide 18 L BUN 23 H Creatinine Glucose 100 H POC Glucose (mg/dL) Calcium Phosphorus Magnesium Alkaline Phosphatase Troponin I Total Protein 5.2 L Albumin 2.8 L TSH Urine Appearance Cloudy H Urine Protein Trace H Urine Ketones Urine Blood Ur Leukocyte Esterase Moderate H Urine WBC 9 H Amorphous Sediment Occasional H Hyaline Casts 252 H Urine Mucus Occasional H 07/19/17 07/19/17 07/19/17 05:42 05:42 05:42 WBC RBC 3.25 L Hgb 9.8 L Hct 30.2 L Plt Count Neutrophils # PT INR APTT Sodium 134 L Potassium 3.4 L Chloride Carbon Dioxide 21 L BUN Creatinine Glucose POC Glucose (mg/dL) Calcium Phosphorus Magnesium Alkaline Phosphatase Troponin I 0.053 H* Total Protein 5.1 L Albumin 2.8 L TSH Urine Appearance Urine Protein Urine Ketones Urine Blood Ur Leukocyte Esterase Urine WBC Amorphous Sediment Hyaline Casts Urine Mucus 07/19/17 08:15 WBC RBC Hgb Hct Plt Count Neutrophils # PT INR APTT Sodium Potassium Chloride Carbon Dioxide BUN Creatinine Glucose POC Glucose (mg/dL) Calcium Phosphorus Magnesium Alkaline Phosphatase Troponin I Total Protein Albumin TSH Urine Appearance Urine Protein 1+ H Urine Ketones Trace H Urine Blood Trace H Ur Leukocyte Esterase Urine WBC Amorphous Sediment Hyaline Casts Urine Mucus Rare H - Diagnostic Findings Chest x-ray: image reviewed Assessment and Plan Plan: Assessment 1 stroke in progression. The patient has developed significant left-sided weakness involving the left upper and left lower extremity and left face and this is consistent with a right hemispheric stroke involving the right frontal and parietal area. The stroke itself it seems to be multifocal and this raises the possibility of an embolic phenomena. Echocardiogram will be ordered. Carotid Doppler was also be ordered. Currently on aspirin. Not a candidate for thrombolytics per neurology. Her NIH score was at 9. 2 difficulties with swallowing and no facial swelling evaluation will be done 3 left lower lobe consolidation/pneumonia. Rule out aspiration is setting of an acute CVA 4 chronic anemia, normocytic 5 hypertension 6 minimal troponin leak 78 his history of CVA/TIA Plan Carotid Dopplers if not done. Echocardiogram. Lipid profile fasting. Continue aspirin. Monitor neuro status. Swallow evaluation. Repeated neurochecks. Continue IV Levaquin and add Zosyn 3.375 mg every 8 hours for potential aspiration. Repeat chest x-ray with next 24 hours. DNR/DNI CODE STATUS. Neurology on the case. We'll continue to follow.
[2017-07-19 11:36] LABS: Basophils % (A) 0 %; CH 30.9; CHCM 33.7; Eosinophils # (A) 0.1 k/uL (0-0.7); Eosinophils % (A) 1 %; HCT 33.2 % (34.0-46.0); HDW 2.38; Luc # (Auto) 0.08; Luc % (Auto) 1; Lymphocytes # (A) 2.3 k/uL (1.0-4.8); Lymphocytes % (A) 26 %; MCH 30.6 pg (25.0-35.0); MCHC 33.1 g/dL (31.0-37.0); MCV 92.2 fL (80.0-100.0); Mean Platelet Volume 7.4; Monocytes # (A) 0.1 k/uL (0-1.0); Monocytes % (A) 1 %; Neutrophils # (A) 6.3 k/uL (1.3-7.7); Neutrophils % (A) 71 %; RDW 14.3 % (11.5-15.5); WBC 8.8 k/uL (3.8-10.6); WBC (Perox) 9.41
[2017-07-19 11:53] LABS: Anion Gap 8 mmol/L; Blood Urea Nitrogen 13 mg/dL (7-17); Carbon Dioxide 23 mmol/L (22-30); Chloride 106 mmol/L (98-107); Cholesterol 193 mg/dL (<200); Glucose 112 mg/dL (74-99); HDL Cholesterol 71 mg/dL (40-60); Magnesium 1.6 mg/dL (1.6-2.3); Non-African American GFR(MDRD) >60 (>60 ml/min/1.73 sqM); Phosphorous 3.2 mg/dL (2.5-4.5); Potassium 3.9 mmol/L (3.5-5.1); Sodium 137 mmol/L (137-145)
--- NOTE | 2017-07-19 12:02 | US ---
EXAMINATION TYPE: US carotid duplex BILAT DATE OF EXAM: 07/19/2017 COMPARISON: None CLINICAL HISTORY: multifocal CVA. Stroke EXAM MEASUREMENTS: RIGHT: Peak Systolic Velocity (PSV) cm/sec ----- Right CCA: 48.8 ----- Right ICA: 66.2 ----- Right ECA: 62.5 ICA/CCA ratio: 1.4 RIGHT: End Diastole cm/sec ----- Right CCA: 6.9 ----- Right ICA: 13.0 ----- Right ECA: 0.0 LEFT: Peak Systolic Velocity (PSV) cm/sec ----- Left CCA: 90.0 ----- Left ICA: 87.8 ----- Left ECA: 77.6 ICA/CCA ratio: 1.0 LEFT: End Diastole cm/sec ----- Left CCA: 13.1 ----- Left ICA: 15.3 ----- Left ECA: 0.0 VERTEBRALS (direction of flow): Right Vertebral: Antegrade Left Vertebral: Antegrade Rhythm: Normal No elevated velocities, significant stenosis or wall thickening. Plaque seen in right bulb extending into ECA. Plaque seen in left bulb at ICA junction. IMPRESSION: 1. Plaque noted bilaterally with no significant hemodynamic stenosis.
[2017-07-19 12:07] LABS: Creatine Kinase MB 1.6 ng/mL (0.0-2.4)
[2017-07-19 12:14] LABS: Troponin I 0.061 ng/mL (0.000-0.034)
[2017-07-19] MEDS: DEXAMETHASONE SOD PHOSPHATE 4 MG/ML 1 ML VIAL IVP SCH ×3 (13:32→19:33)
[2017-07-19] MEDS: PIPERACILLIN-TAZOBACTAM 3.375 GM in DEXTROSE/WATER 1 50ML.BAG IVPB SCH ×2 (13:32→19:34)
[2017-07-19] MEDS: ACETAMINOPHEN TAB 325 MG TAB PO PRN (15:13)
[2017-07-19] MEDS: DEXTROSE 5%-0.45% NACL 1,000 ML IV SCH (19:07)
[2017-07-19] MEDS: HYDROcodone/APAP 5-325MG 1 EACH TAB PO PRN (19:12)
[2017-07-19] MEDS ORDERED: LEVOFLOXACIN 750MG-D5W PMX 750 MG in DEXTROSE/WATER 1 150ML.BAG IVPB SCH (21:00)
[2017-07-19] MEDS: DEXTROSE 5%-0.45% NACL 500 ML IV SCH ×2 (21:45→22:16)
[2017-07-20] MEDS: LISINOPRIL-HCTZ 20-12.5 MG 1 EACH TAB PO SCH ×3 (00:01→22:02)
[2017-07-20] MEDS: DEXAMETHASONE SOD PHOSPHATE 4 MG/ML 1 ML VIAL IVP SCH ×6 (00:01→23:55)
[2017-07-20] MEDS: SODIUM CHLORIDE 0.9% 1,000 ML IV SCH ×2 (02:30→16:34)
[2017-07-20 04:25] LABS: Basophils % (A) 0 %; CH 30.8; CHCM 32.5; Eosinophils % (A) 0 %; HCT 29.5 % (34.0-46.0); HDW 2.29; Luc # (Auto) 0.05; Luc % (Auto) 1; Lymphocytes # (A) 2.5 k/uL (1.0-4.8); Lymphocytes % (A) 34 %; MCH 30.2 pg (25.0-35.0); MCHC 31.7 g/dL (31.0-37.0); MCV 95.2 fL (80.0-100.0); Mean Platelet Volume 7.2; Monocytes # (A) 0.1 k/uL (0-1.0); Monocytes % (A) 1 %; Neutrophils # (A) 4.7 k/uL (1.3-7.7); Neutrophils % (A) 64 %; RDW 14.2 % (11.5-15.5); WBC 7.4 k/uL (3.8-10.6); WBC (Perox) 7.48
[2017-07-20 04:47] LABS: Anion Gap 9 mmol/L; Blood Urea Nitrogen 18 mg/dL (7-17); Calcium 8.4 mg/dL (8.4-10.2); Carbon Dioxide 18 mmol/L (22-30); Chloride 105 mmol/L (98-107); Glucose 170 mg/dL (74-99); Magnesium 1.5 mg/dL (1.6-2.3); Non-African American GFR(MDRD) >60 (>60 ml/min/1.73 sqM); Phosphorous 2.9 mg/dL (2.5-4.5); Potassium 3.7 mmol/L (3.5-5.1); Sodium 132 mmol/L (137-145)
[2017-07-20 04:50] LABS: HGB 9.3 gm/dL (11.4-16.0)
[2017-07-20] MEDS: DEXTROSE 5%-0.45% NACL 1,000 ML IV SCH ×2 (05:00→16:34)
[2017-07-20] MEDS ORDERED: Potassium Replacement Protocol 1 EACH MISC MISCELLANE PRN (05:01)
[2017-07-20] MEDS ORDERED: POTASSIUM CHLORIDE ORAL LIQUID 40 MEQ/30 ML CUP NG-TUBE SCH (06:00)
[2017-07-20] MEDS: MAGNESIUM SULFATE-D5W PMX 1 GM in DEXTROSE/WATER 1 100ML.BAG IVPB SCH ×2 (06:15→07:46)
[2017-07-20] MEDS: PIPERACILLIN-TAZOBACTAM 3.375 GM in DEXTROSE/WATER 1 50ML.BAG IVPB SCH ×3 (06:16→23:57)
[2017-07-20] MEDS ORDERED: LORazepam 2 MG/ML SYRINGE IV PRN (07:32)
--- NOTE | 2017-07-20 07:35 | P.PN ---
Subjective Principal diagnosis: CVA signs/facial droop. The patient is an 87-year-old white female essentially admitted for pneumonia with fall and a left foot abnormalities. Unfortunately, she's developed CVA. She's now been transferred to the ICU secondary to code stroke element. She states she does not want to have any aggressive maneuvers. She is quite lucid otherwise. She has strength in the left upper extremity, however she has significant lack of feeling on the left upper extremity. Objective - Vital Signs Vital signs: Vital Signs Temp 98.1 F 07/19/17 20:00 Pulse 71 07/20/17 07:00 Resp 13 07/20/17 07:00 BP 174/68 07/20/17 07:00 Pulse Ox 96 07/20/17 07:00 Intake & Output 07/19/17 07/20/17 07/20/17 18:59 06:59 18:59 Intake Total 480 1550 Output Total 1425 798 Balance -945 752 Weight 67.9 kg Intake: IV 80 800 Sodium Chloride 0.9% 1, 80 800 000 ml @ 100 mls/hr IV . Q10H [facility] Rx#:[id number] Intake, IV Titration 400 750 Amount Dextrose 5%-0.45% NaCl 1, 250 000 ml @ 100 mls/hr IV . Q10H [facility] Rx#:[id number] Dextrose 5%-0.45% NaCl 500 500 ml @ 999 mls/hr IV . Q31M [facility] Rx#:[id number] Potassium Chloride 10 meq 400 Lidocaine 2% Inj 10 mg In Sodium Chloride 0.9% 100 ml @ 100 mls/hr IV Q1HR [facility] Rx#:[id number] Output: Urine 1425 798 Other: Voiding Method Indwelling Catheter Indwelling Catheter # Voids 2 - Constitutional General appearance: Present: average body habitus - EENT Eyes: Absent: abnormal pupil - Neck Neck: Absent: lymphadenopathy - Respiratory Respiratory: bilateral: CTA - Cardiovascular Rhythm: regular Heart sounds: normal: S1, S2 - Gastrointestinal General gastrointestinal: Present: soft. Absent: tenderness - Neurologic Neurologic: Present: focal deficits - Musculoskeletal Musculoskeletal: Present: left sided weakness - Labs CBC & Chem 7: 07/20/17 04:08 07/20/17 04:08 Labs: Abnormal Lab Results - Last 24 Hours (Table) 07/19/17 07/19/17 07/19/17 Range/Units 08:15 11:26 11:26 RBC 3.60 L (3.80-5.40) m/uL Hgb 11.0 L (11.4-16.0) gm/dL Hct 33.2 L (34.0-46.0) % Sodium (137-145) mmol/L Carbon Dioxide (22-30) mmol/L BUN (7-17) mg/dL Glucose (74-99) mg/dL Magnesium (1.6-2.3) mg/dL Troponin I 0.061 H* (0.000-0.034) ng/mL LDL Cholesterol, Calc (0-99) mg/dL HDL Cholesterol (40-60) mg/dL Urine Protein 1+ H (Negative) Urine Ketones Trace H (Negative) Urine Blood Trace H (Negative) Urine Mucus Rare H (None) /hpf 07/19/17 07/20/17 07/20/17 Range/Units 11:26 04:08 04:08 RBC 3.10 L (3.80-5.40) m/uL Hgb 9.3 L D (11.4-16.0) gm/dL Hct 29.5 L (34.0-46.0) % Sodium 132 L (137-145) mmol/L Carbon Dioxide 18 L (22-30) mmol/L BUN 18 H (7-17) mg/dL Glucose 112 H 170 H (74-99) mg/dL Magnesium 1.5 L (1.6-2.3) mg/dL Troponin I (0.000-0.034) ng/mL LDL Cholesterol, Calc 107 H (0-99) mg/dL HDL Cholesterol 71 H (40-60) mg/dL Urine Protein (Negative) Urine Ketones (Negative) Urine Blood (Negative) Urine Mucus (None) /hpf Microbiology - Last 24 Hours (Table) 07/17/17 01:20 Blood Culture - Preliminary Blood No Growth after 72 hours 07/19/17 08:15 Urine Culture - Preliminary Urine,Catheterized Assessment and Plan (1) Community acquired pneumonia Status: Acute (2) Dehydration Status: Acute (3) Weakness Status: Acute (4) Diarrhea Status: Acute Plan: Evolving CVA. Anxiety and frustration is noted. We will give low-dose Ativan when necessary. Trasnfer to [facility] today. Prognosis is guarded.
[2017-07-20] MEDS: ENOXAPARIN 40 MG/0.4 ML SYRINGE SQ SCH (09:11)
[2017-07-20] MEDS: PANTOPRAZOLE 40 MG/10 ML VIAL IV SCH (09:16)
[2017-07-20] MEDS: GABAPENTIN 100 MG CAP PO SCH ×3 (09:19→22:02)
[2017-07-20] MEDS: ASPIRIN 81 MG PO SCH (09:20)
--- NOTE | 2017-07-20 12:01 | P.PN ---
Subjective 87-year-old female patient who got transferred to the intensive care unit because of stroke in progression. The patient was noted to have worsening in the left-sided weakness and she also developed some left facial droop. Note that the patient was admitted to the hospital on 07/17/2017 for symptoms weakness.. The patient was having generalized weakness and recent falls. Apparently this was a new finding knowing that the patient was doing well prior. The patient while in the hospital was found to have an underlying pneumonia. As part of her workup, a CAT scan of the brain was done that showed no evidence of any stroke. CAT scan of the cervical spine showed no evidence of an acute fracture or dislocation. He was some degree of spondylosis. The patient was being treated for community acquired pneumonia and dehydration. The patient subsequently was seen by neurology for some evolving left-sided weakness. She was also having some difficulties with her speech and his words were slurred. She was noted to have significant left-sided facial droop in addition. She had a left-sided paresis which was greater than the left upper extremity compared to the left lower extremity. Her neurologic exam was consistent with a right hemispheric CVA. Based on this, the patient underwent a stroke evaluation. A MRI of the brain was also completed on 07/18/2017 and showed multiple areas of a right-sided infarct with rapid spreading of the right temporal lobe, largest infarct was in the right parietal region and was also involving the right cerebellum. Cannot exclude the possibility of a punctate acute infarcts involving the anterior left thalamus. There was also background [id number] diffuse atrophy. The patient was placed on aspirin 81 mg on a daily basis. The patient was placed on Decadron. The patient was asked to have a ALICIA done suspecting an embolic phenomena/embolic CVAs. Please refer to the neurologist note for detailed evaluation. Meanwhile, last night the patient's symptoms have gotten worse and she came to the intensive care unit and CAT scan of the brain showed a new large area of focal hypoattenuation in the right frontal lobe adjacent parietal lobes were also involved. Additional smaller foci of hypoattenuation was seen in the right frontal lobe and right cerebellar infarct was also suspected. This was inconsistent with the MRI findings and was a stroke in evolution. The patient this morning has a slurred speech. She is coherent. She is talking. She is communicating. Left side is weak especially in the left upper extremity. She continues to have left-sided facial droop. The patient has a normal cardiac rhythm and there is no report atrial fibrillation. The chest x- ray from yesterday showed a dense consolidation of the left lower lobe consistent with pneumonia and the patient is currently on Levaquin only. No reported aspiration. Her swallow evaluation was done this morning and she swallowed fine. On 07/18/2017 the patient is awake. She is following commands. There is improved motor function the left upper extremity. She is able to raise against gravity. The motor power is slightly improved compared to yesterday. There is facial asymmetry. Left lower extremity is also weak. Possible Babinski on the left. Carotid Dopplers were done and there is no hemodynamically significant stenosis. Echocardiogram was also done and results are still not reported. Cardiac rhythm is still sinus. Blood pressure I think shows a systolic blood pressure ranging between 147 and 176. Pulse ox 96% on room air. She had a swallow evaluation she will be able to obtain pureed diet. No chest pain. Objective - Vital Signs Vital signs: Vital Signs Temp 97.8 F 07/20/17 08:00 Pulse 81 07/20/17 09:30 Resp 15 07/20/17 09:30 BP 147/68 07/20/17 09:30 Pulse Ox 96 07/20/17 09:30 Intake & Output 07/19/17 07/20/17 07/20/17 18:59 06:59 18:59 Intake Total 480 1550 Output Total 1425 798 Balance -945 752 Weight 67.9 kg Intake: IV 80 800 Sodium Chloride 0.9% 1, 80 800 000 ml @ 100 mls/hr IV . Q10H [facility] Rx#:[id number] Intake, IV Titration 400 750 Amount Dextrose 5%-0.45% NaCl 1, 250 000 ml @ 100 mls/hr IV . Q10H [facility] Rx#:[id number] Dextrose 5%-0.45% NaCl 500 500 ml @ 999 mls/hr IV . Q31M [facility] Rx#:[id number] Potassium Chloride 10 meq 400 Lidocaine 2% Inj 10 mg In Sodium Chloride 0.9% 100 ml @ 100 mls/hr IV Q1HR [facility] Rx#:[id number] Output: Urine 1425 798 Other: Voiding Method Indwelling Catheter Indwelling Catheter # Voids 2 - Exam PHYSICAL EXAMINATION: Patient is resting comfortably in bed. Head is atraumatic normocephalic. HEENT: Head is atraumatic, neck is supple, there were no carotid bruits. CHEST: Lungs are clear to auscultation and percussion. CARDIAC: S1, S2 normal rate and rhythm. There is no murmur. ABDOMEN: Soft and nontender. Bowel sounds are present. EXTREMITIES: There is no pedal edema. Peripheral pulses are present. Neurological examination: Patient's neurological examination is unchanged from yesterday. She has evidence of a left facial droop with upper motor neuron findings. She has a left pronator drift and left-sided hemiparesthesias. Her speech remains dysphasic. Patient's speech appears to be stable at this time. Apparently earlier this morning she had very severe garbled speech and hard to comprehend. She now seems to be back to her baseline as she was yesterday evening. Her aphasia seems to be back seeing and waning. This will be closely monitored. Skin examination shows no ulceration wounds or cellulitis Skeletal examination shows no arthritis or joint deformities. - Labs CBC & Chem 7: 07/20/17 04:08 07/20/17 04:08 Labs: Abnormal Lab Results - Last 24 Hours (Table) 07/19/17 07/19/17 07/20/17 Range/Units 11:26 11:26 04:08 RBC 3.10 L (3.80-5.40) m/uL Hgb 9.3 L D (11.4-16.0) gm/dL Hct 29.5 L (34.0-46.0) % Sodium (137-145) mmol/L Carbon Dioxide (22-30) mmol/L BUN (7-17) mg/dL Glucose 112 H (74-99) mg/dL Magnesium (1.6-2.3) mg/dL Troponin I 0.061 H* (0.000-0.034) ng/mL LDL Cholesterol, Calc 107 H (0-99) mg/dL HDL Cholesterol 71 H (40-60) mg/dL 07/20/17 Range/Units 04:08 RBC (3.80-5.40) m/uL Hgb (11.4-16.0) gm/dL Hct (34.0-46.0) % Sodium 132 L (137-145) mmol/L Carbon Dioxide 18 L (22-30) mmol/L BUN 18 H (7-17) mg/dL Glucose 170 H (74-99) mg/dL Magnesium 1.5 L (1.6-2.3) mg/dL Troponin I (0.000-0.034) ng/mL LDL Cholesterol, Calc (0-99) mg/dL HDL Cholesterol (40-60) mg/dL Microbiology - Last 24 Hours (Table) 07/17/17 01:20 Blood Culture - Preliminary Blood No Growth after 72 hours 07/19/17 08:15 Urine Culture - Preliminary Urine,Catheterized Assessment and Plan Plan: Assessment 1 stroke involving the right MCA distribution with secondary left-sided weakness and left facial paralysis. The patient neurologically stable in fact there has been some improvement in the motor function impaired yesterday specially left upper extremity. Her speech is also improved. She is awake and alert. Carotid Dopplers of been showing no significant abnormalities. Echocardiogram has been ordered. He probably will be needed a later stage. Cardiology is to be seeing this patient. Meanwhile the patient on aspirin. Hemodynamically stable. 2 difficulties with swallowing secondary to CVA, as well as evaluation was done. 3 left lower lobe consolidation/pneumonia. Rule out aspiration is setting of an acute CVA 4 chronic anemia, normocytic 5 hypertension 6 minimal troponin leak 7 history of CVA/TIA Plan Continue aspirin. Put the patient on 40 mg of Lipitor. Continue IV Zosyn and stop the Levaquin for now. Repeat chest x-ray in a.m. Aspiration precautions. Swallow evaluation was done. Awaiting cardiology evaluation. Awaiting results of the echocardiogram possibly a ALICIA will be needed for the reasons mentioned above. Meanwhile, the patient is stable. The patient can be transferred to a medical floor with telemetry.
[2017-07-20] MEDS: ATORVASTATIN 40 MG TAB PO SCH (12:55)
--- NOTE | 2017-07-20 13:42 | P.CRDCN ---
History of Present Illness Consult date: 07/20/17 History of present illness: This is a pleasant 87-year-old female patient with a past medical history significant for hypertension with no prior cardiac history of coronary artery disease or congestive heart failure or cardiac arrhythmia who was admitted to the hospital on July 172016 with what it seems to be community-acquired pneumonia. During her hospitalization the patient stroke and she developed left sided weakness. She workup and that revealed right hemispheric infarct. Currently the patient is in intensive care unit. . She does have left sided weakness and slurred speech. She denies having any chest pain or discomfort or difficulty breathing or heart racing or fluttering. The blood pressure is slightly elevated. She has been maintaining normal sinus mechanism She underwent an echocardiogram which we don't have the results at this point. The cardiac enzymes were checked and came in to be slightly abnormal but the patient has been pain-free. Past Medical History Past Medical History: GERD/Reflux, Hypertension, Osteoarthritis (OA) Additional Past Medical History / Comment(s): Previous history of CVA, hypertension, acid reflux, osteoarthritis. History of Any Multi-Drug Resistant Organisms: None Reported Past Surgical History: Tonsillectomy Additional Past Surgical History / Comment(s): neck sx "don't know what kind of surgery" Past Anesthesia/Blood Transfusion Reactions: No Reported Reaction Past Psychological History: No Psychological Hx Reported Smoking Status: Former smoker Past Alcohol Use History: Occasional Past Drug Use History: None Reported - Past Family History Mother Family Medical History: Hypertension Additional Family Medical History / Comment(s): "born with hole in heart" Father Family Medical History: Myocardial Infarction (AL) Medications and Allergies Home Medications Medication Instructions Recorded Confirmed Type Aspirin [Adult Low Dose Aspirin EC] 81 mg PO DAILY 05/23/17 07/17/17 History Gabapentin [Neurontin] 100 mg PO TID 05/23/17 07/17/17 History Lisinopril-Hctz 20-12.5 mg 1 tab PO BID 05/23/17 07/17/17 History [Zestoretic 20-12.5] Naproxen Sodium [Aleve] 220 mg PO Q12HR PRN 05/23/17 07/17/17 History Omeprazole 20 mg PO DAILY 05/23/17 07/17/17 History Allergies Allergy/AdvReac Type Severity Reaction Status Date / Time No Known Allergies Allergy Verified 07/17/17 08:35 Physical Exam Vitals: Vital Signs Temp Pulse Pulse Resp BP Pulse Ox 07/20/17 09:30 81 15 147/68 96 07/20/17 09:20 84 17 147/68 96 07/20/17 09:10 87 15 147/68 96 07/20/17 09:00 88 19 176/71 95 07/20/17 08:50 90 17 176/71 96 07/20/17 08:40 83 17 176/71 95 07/20/17 08:30 83 21 189/69 95 07/20/17 08:20 83 21 189/69 95 07/20/17 08:10 77 18 189/69 96 07/20/17 08:00 97.8 F 80 18 180/66 97 07/20/17 07:50 74 15 180/66 96 07/20/17 07:40 76 19 180/66 96 07/20/17 07:30 81 23 184/60 97 07/20/17 07:20 81 18 184/60 96 07/20/17 07:10 61 12 184/60 97 07/20/17 07:00 71 13 174/68 96 07/20/17 06:50 64 12 174/68 97 07/20/17 06:40 76 12 174/68 96 07/20/17 06:30 74 13 182/78 96 07/20/17 06:20 72 14 182/78 96 07/20/17 06:10 65 12 182/78 96 07/20/17 06:00 66 14 178/70 97 07/20/17 05:50 60 13 178/70 98 07/20/17 05:40 60 12 178/70 97 07/20/17 05:30 80 12 165/74 97 07/20/17 05:20 53 L 12 165/74 96 07/20/17 05:10 53 L 13 165/74 96 07/20/17 05:00 55 L 12 169/68 97 07/20/17 04:50 52 L 13 169/68 97 07/20/17 04:40 57 L 13 169/68 97 07/20/17 04:30 57 L 12 166/72 97 07/20/17 04:20 56 L 13 166/72 96 07/20/17 04:10 72 16 166/72 97 07/20/17 04:00 56 L 12 162/66 96 07/20/17 03:50 52 L 12 162/66 96 07/20/17 03:40 52 L 13 162/66 96 07/20/17 03:30 53 L 12 176/77 97 07/20/17 03:20 57 L 12 176/77 97 07/20/17 03:10 55 L 12 176/77 97 07/20/17 03:00 56 L 12 179/84 97 07/20/17 02:50 65 14 179/84 96 07/20/17 02:40 58 L 12 179/84 96 07/20/17 02:30 67 12 185/68 96 07/20/17 02:20 70 15 185/68 96 07/20/17 02:10 66 15 185/68 96 07/20/17 02:00 60 14 182/73 96 07/20/17 01:50 65 15 182/73 96 07/20/17 01:40 68 11 L 182/73 96 07/20/17 01:30 67 14 185/77 96 07/20/17 01:20 65 12 185/77 96 07/20/17 01:10 63 13 185/77 96 07/20/17 01:00 62 12 179/75 96 07/20/17 00:50 70 14 179/75 96 07/20/17 00:40 72 15 179/75 96 07/20/17 00:30 76 15 174/74 96 07/20/17 00:20 79 12 174/74 97 07/20/17 00:10 55 L 11 L 174/74 97 07/20/17 00:00 55 L 11 L 181/82 97 07/19/17 23:50 56 L 12 181/82 96 07/19/17 23:40 61 12 181/82 97 07/19/17 23:30 64 12 173/86 97 07/19/17 23:20 68 12 173/86 97 07/19/17 23:10 71 12 173/86 95 07/19/17 23:05 77 12 173/86 95 07/19/17 23:00 73 31 H 163/76 96 07/19/17 22:50 64 12 163/76 96 07/19/17 22:40 70 13 163/76 94 L 07/19/17 22:30 67 11 L 177/81 96 07/19/17 22:20 68 11 L 177/81 96 07/19/17 22:10 72 43 H 177/81 96 07/19/17 22:00 72 17 172/66 96 07/19/17 21:50 72 15 172/66 97 07/19/17 21:40 67 14 172/66 95 07/19/17 21:30 71 18 166/67 96 07/19/17 21:20 63 12 166/67 95 07/19/17 21:10 64 13 166/67 95 07/19/17 21:00 69 12 177/69 95 07/19/17 20:50 74 24 177/69 96 07/19/17 20:40 69 23 177/69 96 07/19/17 20:30 71 19 193/68 96 07/19/17 20:20 72 15 193/68 96 07/19/17 20:16 96 07/19/17 20:10 68 18 193/68 96 07/19/17 20:00 98.1 F 71 16 184/71 95 07/19/17 19:50 68 21 184/71 95 07/19/17 19:40 70 16 184/71 96 07/19/17 19:30 75 17 184/73 96 07/19/17 19:20 75 23 184/73 96 07/19/17 19:10 78 19 184/73 96 07/19/17 19:00 76 20 189/79 95 07/19/17 18:50 73 17 178/81 96 07/19/17 18:40 81 20 178/81 95 07/19/17 18:30 80 24 172/67 96 07/19/17 18:20 89 17 172/67 96 07/19/17 18:10 81 20 172/67 95 07/19/17 18:00 93 21 187/82 95 07/19/17 17:50 82 17 187/82 95 07/19/17 17:40 82 19 187/82 95 07/19/17 17:30 81 20 176/72 96 07/19/17 17:20 86 25 H 176/72 96 07/19/17 17:10 74 16 176/72 96 07/19/17 17:00 74 15 179/72 96 07/19/17 16:50 80 17 179/72 96 07/19/17 16:40 84 16 179/72 95 07/19/17 16:30 90 21 129/52 94 L 07/19/17 16:20 85 15 129/52 95 07/19/17 16:10 61 15 129/52 95 07/19/17 16:00 97.8 F 65 89 15 160/69 94 L 07/19/17 15:50 68 15 160/69 95 07/19/17 15:40 75 15 160/69 94 L 07/19/17 15:30 81 21 189/65 96 07/19/17 15:20 92 17 189/65 96 07/19/17 15:10 89 19 189/65 96 07/19/17 15:00 77 18 181/68 95 07/19/17 14:30 82 18 190/79 96 07/19/17 14:20 89 23 190/79 95 07/19/17 14:10 88 19 190/79 96 07/19/17 14:00 90 23 185/84 95 07/19/17 13:50 78 19 185/84 95 07/19/17 13:40 92 20 185/84 94 L Intake and Output 07/19/17 07/20/17 07/20/17 22:59 06:59 14:59 Intake Total 670 900 Output Total 238 720 Balance 432 180 Intake: IV 20 800 Sodium Chloride 0.9% 1, 20 800 000 ml @ 100 mls/hr IV . Q10H [facility] Rx#:[id number] Intake, IV Titration 650 100 Amount Dextrose 5%-0.45% NaCl 1, 150 100 000 ml @ 100 mls/hr IV . Q10H [facility] Rx#:[id number] Dextrose 5%-0.45% NaCl 500 500 ml @ 999 mls/hr IV . Q31M [facility] Rx#:[id number] Output: Urine 238 720 Other: Voiding Method Indwelling Catheter Indwelling Catheter Weight 67.9 kg - Constitutional General appearance: no acute distress - Respiratory Respiratory: bilateral: CTA - Cardiovascular Rhythm: regular Heart sounds: normal: S1, S2 Results 07/20/17 04:08 07/20/17 04:08 CBC 07/20/17 Range/Units 04:08 WBC 7.4 (3.8-10.6) k/uL RBC 3.10 L (3.80-5.40) m/uL Hgb 9.3 L D (11.4-16.0) gm/dL Hct 29.5 L (34.0-46.0) % Plt Count 332 (150-450) k/uL Comprehensive Metabolic Panel 07/20/17 Range/Units 04:08 Sodium 132 L (137-145) mmol/L Potassium 3.7 (3.5-5.1) mmol/L Chloride 105 (98-107) mmol/L Carbon Dioxide 18 L (22-30) mmol/L BUN 18 H (7-17) mg/dL Creatinine 0.80 (0.52-1.04) mg/dL Glucose 170 H (74-99) mg/dL Calcium 8.4 (8.4-10.2) mg/dL Current Medications Generic Name Dose Route Start Last Admin Trade Name Freq PRN Reason Stop Dose Admin Acetaminophen 325 mg 07/17/17 17:19 07/19/17 15:13 Tylenol Tab PO 325 mg Q6HR PRN Administration Fever and/ or Pain Hydrocodone Bitart/Acetaminophen 1 each 07/19/17 18:52 07/19/17 19:12 Hallam 5-325 PO 1 each Q6HR PRN Administration Pain Albuterol/Ipratropium 3 ml 07/17/17 02:21 Duoneb 0.5 Mg-3 Mg/3 Ml Soln INHALATION RT-Q4H PRN shortness of breath Aspirin 81 mg 07/17/17 09:00 07/20/17 09:20 Aspirin PO 81 mg DAILY [facility] Administration Atorvastatin Calcium 40 mg 07/20/17 12:30 07/20/17 12:55 Lipitor PO 40 mg DAILY [facility] Administration Dexamethasone Sodium Phosphate 6 mg 07/19/17 12:00 07/20/17 12:43 Decadron IVP 6 mg Q4HR [facility] Administration Enoxaparin Sodium 40 mg 07/17/17 09:00 07/20/17 09:11 Lovenox SQ 40 mg DAILY [facility] Administration Gabapentin 100 mg 07/17/17 09:00 07/20/17 09:19 Neurontin PO 100 mg TID [facility] Administration Lisinopril/HCTZ 1 each 07/17/17 09:00 07/20/17 09:21 Zestoretic 20-12.5 PO Not Given BID [facility] Sodium Chloride 1,000 mls @ 100 mls/hr 07/17/17 02:30 07/20/17 02:30 Saline 0.9% IV Not Given .Q10H [facility] Piperacillin/Tazobactam/ 50 mls @ 12.5 mls/hr 07/19/17 12:00 07/20/17 12:47 Dextrose 3.375 gm/ IV Solution IVPB 12.5 mls/hr Q8H [facility] Administration Dextrose/Sodium Chloride 1,000 mls @ 100 mls/hr 07/19/17 19:00 07/20/17 05:00 Dextrose 5%-1/2ns Iv Soln IV 100 mls/hr .Q10H [facility] Administration Lorazepam 0.5 mg 07/20/17 07:32 Ativan IV Q6HR PRN Anxiety Miscellaneous Information 1 each 07/17/17 02:21 Pneumonia Protocol Utilized PO ONCE PRN Per Protocol Miscellaneous Information 1 each 07/17/17 08:42 Magnesium Per Protocol MISCELLANE DAILY PRN Per Protocol Protocol Miscellaneous Information 1 each 07/20/17 05:01 Potassium Per Protocol MISCELLANE DAILY PRN Per Protocol Protocol Ondansetron HCl 4 mg 07/17/17 09:07 07/17/17 09:20 Zofran IVP 4 mg Q6HR PRN Administration Nausea And Vomiting Pantoprazole Sodium 40 mg 07/19/17 09:00 07/20/17 09:16 Protonix IV 40 mg DAILY [facility] Administration Intake and Output 07/19/17 07/20/17 07/20/17 22:59 06:59 14:59 Intake Total 670 900 Output Total 238 720 Balance 432 180 Intake: IV 20 800 Sodium Chloride 0.9% 1, 20 800 000 ml @ 100 mls/hr IV . Q10H [facility] Rx#:[id number] Intake, IV Titration 650 100 Amount Dextrose 5%-0.45% NaCl 1, 150 100 000 ml @ 100 mls/hr IV . Q10H [facility] Rx#:[id number] Dextrose 5%-0.45% NaCl 500 500 ml @ 999 mls/hr IV . Q31M [facility] Rx#:[id number] Output: Urine 238 720 Other: Voiding Method Indwelling Catheter Indwelling Catheter Weight 67.9 kg 07/20/17 04:08 07/20/17 04:08 Assessment and Plan Plan: This is a pleasant 87-year-old female patient with hypertension who developed an acute stroke. The patient is hemodynamically stable. She has been maintaining normal sinus mechanism. She is on aspirin and statin we will continue that. We will follow-up on the echocardiogram. The carotid duplex study did not reveal any significant carotid disease. Regarding the abnormal cardiac enzymes that is likely secondary to uncontrolled hypertension as well as recent stroke.
[2017-07-20] MEDS: ACETAMINOPHEN TAB 325 MG TAB PO PRN (14:23)
[2017-07-20] MEDS: PANTOPRAZOLE 40 MG TABLET PO SCH (18:04)
--- NOTE | 2017-07-20 18:24 | CT ---
EXAMINATION TYPE: CT brain wo con DATE OF EXAM: 07/20/2017 COMPARISON: 07/19/2017 HISTORY: Patient poor historian. Patient displays left side weakness. CT DLP: 1112 mGycm Automated exposure control for dose reduction was used. FINDINGS: The previously seen large right MCA territory infarction is redemonstrated, with similar overall size and localized mass effect. There is no midline shift of structures. No dc hemorrhage. There are no new attenuation defects. IMPRESSION: STABLE APPEARANCE.
--- NOTE | 2017-07-20 21:47 | ECHOF ---
Referral Reason:multifocal CVA MEASUREMENTS -------- HEIGHT: 162.6 cm WEIGHT: 72.6 kg BP: 181/74 RVIDd: 2.6 cm (< 3.3) IVSd: 1.5 cm (0.6 - 1.1) LVIDd: 2.9 cm (3.9 - 5.3) LVPWd: 1.5 cm (0.6 - 1.1) IVSs: 1.6 cm LVIDs: 1.9 cm LVPWs: 1.3 cm LAESV Index (A-L): 23.59 ml/m Ao Diam: 3.4 cm (2.0 - 3.7) AV Cusp: 1.1 cm (1.5 - 2.6) LA Diam: 2.4 cm (2.7 - 3.8) MV EXCURSION: 13.341 mm (> 18.000) MV EF SLOPE: 22 mm/s (70 - 150) EPSS: 0.5 cm MV E Mariano: 0.71 m/s MV DecT: 339 ms MV A Mariano: 1.43 m/s MV E/A Ratio: 0.49 RAP: 5.00 mmHg RVSP: 32.20 mmHg FINDINGS -------- Sinus rhythm. This was a technically adequate study. The left ventricular size is normal. There is moderate concentric left ventricular hypertrophy. Overall left ventricular systolic function is normal with, an EF between 60 - 65 %. The right ventricle is normal in size and function. Normal LA size by volume 22+/-6 ml/m2. The right atrium is normal in size. The aortic valve is trileaflet and appears structurally normal. There is no evidence of aortic regurgitation. There is no evidence of aortic stenosis. The mitral valve leaflets are mildly thickened. There is trace mitral regurgitation. Trace tricuspid regurgitation present. There is borderline pulmonary hypertension. The right ventricular systolic pressure, as measured by Doppler, is 32.20mmHg. The pulmonic valve was not well visualized. The aortic root size is normal. Normal inferior vena cava with normal inspiratory collapse consistent with estimated right atrial pressure of 5 mmHg. The pericardium is normal. Echo free space indicative of a pericardial fat pad. There is no pericardial effusion. CONCLUSIONS -------- 1. Sinus rhythm. 2. Trace tricuspid regurgitation present. 3. There is borderline pulmonary hypertension. 4. The right ventricular systolic pressure, as measured by Doppler, is 32.20mmHg. 5. The pulmonic valve was not well visualized. 6. The aortic root size is normal. 7. Echo free space indicative of a pericardial fat pad. 8. There is no pericardial effusion. 9. This was a technically adequate study. 10. The left ventricular size is normal. 11. There is moderate concentric left ventricular hypertrophy. 12. Overall left ventricular systolic function is normal with, an EF between 60 - 65 %. 13. Normal LA size by volume 22+/-6 ml/m2. 14. The aortic valve is trileaflet and appears structurally normal. 15. The mitral valve leaflets are mildly thickened. 16. There is trace mitral regurgitation. G[employer]ATION OPERATOR: Nigel Felix RDCS
[2017-07-20] MEDS: HYDROcodone/APAP 5-325MG 1 EACH TAB PO PRN (22:02)
[2017-07-21] MEDS: DEXTROSE 5%-0.45% NACL 1,000 ML IV SCH ×3 (03:53→20:18)
[2017-07-21] MEDS: DEXAMETHASONE SOD PHOSPHATE 4 MG/ML 1 ML VIAL IVP SCH ×6 (05:15→20:17)
[2017-07-21] MEDS: PIPERACILLIN-TAZOBACTAM 3.375 GM in DEXTROSE/WATER 1 50ML.BAG IVPB SCH ×3 (05:16→20:18)
[2017-07-21] MEDS: HYDROcodone/APAP 5-325MG 1 EACH TAB PO PRN (06:33)
--- NOTE | 2017-07-21 08:12 | XR ---
EXAMINATION TYPE: XR chest 1V DATE OF EXAM: 07/21/2017 HISTORY: pneumonia. REFERENCE: Previous study dated 07/18/2017. Left-sided effusion. FINDINGS: The lungs are overinflated. There is a left lower lobe infiltrate and associated left effus ion. Heart size is obscured. The right lung is clear. IMPRESSION: 1. COPD. 2. CONTINUING LEFT BASILAR AIRSPACE DISEASE. 3.
[2017-07-21 09:20] LABS: Basophils # (A) 0.1 k/uL (0-0.2); Basophils % (A) 0 %; CH 30.3; CHCM 32.8; Eosinophils # (A) 0.3 k/uL (0-0.7); Eosinophils % (A) 2 %; HCT 36.2 % (34.0-46.0); HDW 2.34; HGB 11.9 gm/dL (11.4-16.0); Luc # (Auto) 0.15; Luc % (Auto) 1; Lymphocytes # (A) 6.3 k/uL (1.0-4.8); Lymphocytes % (A) 39 %; MCH 30.6 pg (25.0-35.0); MCV 92.7 fL (80.0-100.0); Mean Platelet Volume 7.8; Monocytes # (A) 0.2 k/uL (0-1.0); Monocytes % (A) 1 %; Neutrophils # (A) 9.3 k/uL (1.3-7.7); Neutrophils % (A) 57 %; RBC 3.91 m/uL (3.80-5.40); WBC 16.2 k/uL (3.8-10.6); WBC (Perox) 16.87
[2017-07-21] MEDS: GABAPENTIN 100 MG CAP PO SCH ×3 (09:21→23:34)
[2017-07-21] MEDS: ASPIRIN 81 MG PO SCH (09:21)
[2017-07-21] MEDS: LISINOPRIL-HCTZ 20-12.5 MG 1 EACH TAB PO SCH ×2 (09:21→20:18)
[2017-07-21] MEDS: ATORVASTATIN 40 MG TAB PO SCH (09:21)
[2017-07-21] MEDS: PANTOPRAZOLE 40 MG/10 ML VIAL IV SCH (09:21)
[2017-07-21] MEDS: ENOXAPARIN 40 MG/0.4 ML SYRINGE SQ SCH (09:23)
[2017-07-21 10:49] LABS: Anion Gap 10 mmol/L; Blood Urea Nitrogen 20 mg/dL (7-17); Carbon Dioxide 21 mmol/L (22-30); Chloride 105 mmol/L (98-107); Glucose 204 mg/dL (74-99); Magnesium 1.9 mg/dL (1.6-2.3); Non-African American GFR(MDRD) >60 (>60 ml/min/1.73 sqM); Phosphorous 3.5 mg/dL (2.5-4.5); Potassium 3.9 mmol/L (3.5-5.1); Sodium 136 mmol/L (137-145)
--- NOTE | 2017-07-21 14:20 | P.PN ---
Subjective 87-year-old female patient who got transferred to the intensive care unit because of stroke in progression. The patient was noted to have worsening in the left-sided weakness and she also developed some left facial droop. Note that the patient was admitted to the hospital on 07/17/2017 for symptoms weakness.. The patient was having generalized weakness and recent falls. Apparently this was a new finding knowing that the patient was doing well prior. The patient while in the hospital was found to have an underlying pneumonia. As part of her workup, a CAT scan of the brain was done that showed no evidence of any stroke. CAT scan of the cervical spine showed no evidence of an acute fracture or dislocation. He was some degree of spondylosis. The patient was being treated for community acquired pneumonia and dehydration. The patient subsequently was seen by neurology for some evolving left-sided weakness. She was also having some difficulties with her speech and his words were slurred. She was noted to have significant left-sided facial droop in addition. She had a left-sided paresis which was greater than the left upper extremity compared to the left lower extremity. Her neurologic exam was consistent with a right hemispheric CVA. Based on this, the patient underwent a stroke evaluation. A MRI of the brain was also completed on 07/18/2017 and showed multiple areas of a right-sided infarct with rapid spreading of the right temporal lobe, largest infarct was in the right parietal region and was also involving the right cerebellum. Cannot exclude the possibility of a punctate acute infarcts involving the anterior left thalamus. There was also background [id number] diffuse atrophy. The patient was placed on aspirin 81 mg on a daily basis. The patient was placed on Decadron. The patient was asked to have a ALICIA done suspecting an embolic phenomena/embolic CVAs. Please refer to the neurologist note for detailed evaluation. Meanwhile, last night the patient's symptoms have gotten worse and she came to the intensive care unit and CAT scan of the brain showed a new large area of focal hypoattenuation in the right frontal lobe adjacent parietal lobes were also involved. Additional smaller foci of hypoattenuation was seen in the right frontal lobe and right cerebellar infarct was also suspected. This was inconsistent with the MRI findings and was a stroke in evolution. The patient this morning has a slurred speech. She is coherent. She is talking. She is communicating. Left side is weak especially in the left upper extremity. She continues to have left-sided facial droop. The patient has a normal cardiac rhythm and there is no report atrial fibrillation. The chest x- ray from yesterday showed a dense consolidation of the left lower lobe consistent with pneumonia and the patient is currently on Levaquin only. No reported aspiration. Her swallow evaluation was done this morning and she swallowed fine. On 07/20/2017 the patient is awake. She is following commands. There is improved motor function the left upper extremity. She is able to raise against gravity. The motor power is slightly improved compared to yesterday. There is facial asymmetry. Left lower extremity is also weak. Possible Babinski on the left. Carotid Dopplers were done and there is no hemodynamically significant stenosis. Echocardiogram was also done and results are still not reported. Cardiac rhythm is still sinus. Blood pressure I think shows a systolic blood pressure ranging between 147 and 176. Pulse ox 96% on room air. She had a swallow evaluation she will be able to obtain pureed diet. No chest pain. On 07/21/2017 the patient is doing well. Mentally awake. Moving her left upper extremity. There is some hemiplegia on the left compared to right however this is still improved then motor functions better compared to yesterday pH is swallowing. No aspiration. The echocardiogram showed ejection fraction of 60%, moderate concentric left ventricular hypertrophy, RV pressure of 32, no valvular disease, no intracardiac thrombus or any other abnormalities noted. Objective - Vital Signs Vital signs: Vital Signs Temp 97.7 F 07/21/17 07:00 Pulse 80 07/21/17 07:00 Resp 18 07/21/17 07:00 BP 152/77 07/21/17 07:00 Pulse Ox 95 07/21/17 07:00 Intake & Output 07/20/17 07/21/17 07/21/17 18:59 06:59 18:59 Intake Total 1240 450 644 Output Total 955 1400 Balance 285 -950 644 Weight 67.9 kg Intake: Intake, IV Titration 1000 Amount Dextrose 5%-0.45% NaCl 1, 800 000 ml @ 100 mls/hr IV . Q10H MILDRED Rx#:[id number] Dextrose 5%-0.45% NaCl 200 500 ml @ 999 mls/hr IV . Q31M MILDRED Rx#:[id number] Oral 240 450 644 Output: Urine 955 1400 Other: Voiding Method Indwelling Catheter Indwelling Catheter # Voids 675 # Bowel Movements 0 - Exam PHYSICAL EXAMINATION: Patient is resting comfortably in bed. Head is atraumatic normocephalic. HEENT: Head is atraumatic, neck is supple, there were no carotid bruits. CHEST: Lungs are clear to auscultation and percussion. CARDIAC: S1, S2 normal rate and rhythm. There is no murmur. ABDOMEN: Soft and nontender. Bowel sounds are present. EXTREMITIES: There is no pedal edema. Peripheral pulses are present. Neurological examination: Patient's neurological examination is unchanged from yesterday. She has evidence of a left facial droop with upper motor neuron findings. She has a left pronator drift and left-sided hemiparesthesias. Her speech remains dysphasic. Patient's speech appears to be stable at this time. Apparently earlier this morning she had very severe garbled speech and hard to comprehend. She now seems to be back to her baseline as she was yesterday evening. Her aphasia seems to be back seeing and waning. This will be closely monitored. Skin examination shows no ulceration wounds or cellulitis Skeletal examination shows no arthritis or joint deformities. - Labs CBC & Chem 7: 07/21/17 09:09 07/21/17 09:09 Labs: Abnormal Lab Results - Last 24 Hours (Table) 07/21/17 07/21/17 Range/Units 09:09 09:09 WBC 16.2 H (3.8-10.6) k/uL Neutrophils # 9.3 H (1.3-7.7) k/uL Lymphocytes # 6.3 H (1.0-4.8) k/uL Sodium 136 L (137-145) mmol/L Carbon Dioxide 21 L (22-30) mmol/L BUN 20 H (7-17) mg/dL Glucose 204 H (74-99) mg/dL Microbiology - Last 24 Hours (Table) 07/17/17 01:20 Blood Culture - Preliminary Blood No Growth after 96 hours 07/19/17 08:15 Urine Culture - Final Urine,Catheterized Assessment and Plan Plan: Assessment 1 stroke involving the right MCA distribution with secondary left-sided weakness and left facial paralysis. The patient neurologically stable in fact there has been some improvement in the motor function impaired yesterday specially left upper extremity. Her speech is also improved. She is awake and alert. Carotid Dopplers of been showing no significant abnormalities. Echocardiogram has been ordered. He probably will be needed a later stage. Cardiology is to be seeing this patient. Meanwhile the patient on aspirin. Hemodynamically stable. On 07/21/2017 the patient is felt to be more stable compared to yesterday. She is able to swallow. She is able to move her left side although she does have some residual weakness in the left upper extremity and left lower extremity in the left face. Echocardiogram was noted. No active pulmonary or critical care issue and the patient is currently on a medical floor. 2 difficulties with swallowing secondary to CVA, as well as evaluation was done. 3 left lower lobe consolidation/pneumonia. Rule out aspiration is setting of an acute CVA. The chest x-ray from today shows still some left basilar airspace disease. 4 chronic anemia, normocytic 5 hypertension 6 minimal troponin leak 7 history of CVA/TIA Plan Continue aspirin. Put the patient on 40 mg of Lipitor. Continue IV Zosyn and stop the Levaquin for now. Chest x-ray findings are stable. Echocardiogram was noted. Aspiration precautions. Advance diet as tolerated. Physical therapy. Neurology follow-up. Will see as needed.
--- NOTE | 2017-07-21 14:22 | P.PN ---
Subjective Principal diagnosis: Uncontrolled hypertension This is a pleasant 87-year-old female patient with a past medical history significant for hypertension with no prior cardiac history of coronary artery disease or congestive heart failure or cardiac arrhythmia who was admitted to the hospital on July 172016 with what it seems to be community-acquired pneumonia. During her hospitalization the patient stroke and she developed left sided weakness. She workup and that revealed right hemispheric infarct. The patient was in the intensive care unit and she was transferred to the fourth floor. She does have left sided weakness and slurred speech. She denies having any chest pain or discomfort or difficulty breathing or heart racing or fluttering. The blood pressure is not well-controlled. I will continue the current medical treatment and add metoprolol to the current medical regimen. The echocardiogram showed normal LV function. Objective - Vital Signs Vital signs: Vital Signs Temp 97.7 F 07/21/17 07:00 Pulse 80 07/21/17 07:00 Resp 18 07/21/17 07:00 BP 152/77 07/21/17 07:00 Pulse Ox 95 07/21/17 07:00 Intake & Output 07/20/17 07/21/17 07/21/17 18:59 06:59 18:59 Intake Total 1240 450 644 Output Total 955 1400 Balance 285 -950 644 Weight 67.9 kg Intake: Intake, IV Titration 1000 Amount Dextrose 5%-0.45% NaCl 1, 800 000 ml @ 100 mls/hr IV . Q10H MILDRED Rx#:[id number] Dextrose 5%-0.45% NaCl 200 500 ml @ 999 mls/hr IV . Q31M MILDRDE Rx#:[id number] Oral 240 450 644 Output: Urine 955 1400 Other: Voiding Method Indwelling Catheter Indwelling Catheter # Voids 675 # Bowel Movements 0 - Constitutional General appearance: Present: no acute distress - Respiratory Respiratory: bilateral: CTA - Cardiovascular Rhythm: regular Heart sounds: normal: S1, S2 - Labs CBC & Chem 7: 07/21/17 09:09 07/21/17 09:09 Labs: Abnormal Lab Results - Last 24 Hours (Table) 07/21/17 07/21/17 Range/Units 09:09 09:09 WBC 16.2 H (3.8-10.6) k/uL Neutrophils # 9.3 H (1.3-7.7) k/uL Lymphocytes # 6.3 H (1.0-4.8) k/uL Sodium 136 L (137-145) mmol/L Carbon Dioxide 21 L (22-30) mmol/L BUN 20 H (7-17) mg/dL Glucose 204 H (74-99) mg/dL Microbiology - Last 24 Hours (Table) 07/17/17 01:20 Blood Culture - Preliminary Blood No Growth after 96 hours 07/19/17 08:15 Urine Culture - Final Urine,Catheterized Assessment and Plan Plan: This is a pleasant 87-year-old female patient with hypertension who developed an acute stroke. I will continue the current medical treatment and add metoprolol to the current medical regimen.
--- NOTE | 2017-07-21 18:56 | PN ---
PROGRESS NOTE DATE OF SERVICE: 07/21/2017 I am covering for Dr. Johns. INTERVAL HISTORY: This 87-year-old woman who was admitted with significant stroke of the right MCA territory causing left-sided weakness has been closely monitored. The patient also had left lower lobe pneumonia possibly aspiration was considered. The patient is on IV antibiotics. Dr. Barclay and neurology are following the patient closely. The PT, OT are evaluating the patient for possible ECF rehab. The patient also able to move the right lower limb also to some extent at this time. PAST MEDICAL: Reviewed. REVIEW OF SYSTEMS: CARDIOVASCULAR: No angina. RESPIRATORY: As mentioned earlier. GI: No nausea. : No dysuria. NERVOUS SYSTEM: As mentioned. ALLERGIES/IMMUNOLOGY: Asthma. MUSCULOSKELETAL. Mentioned earlier. CURRENT MEDICATIONS: Current medications are reviewed and include: 1. Tylenol 325 mg q.6h p.r.n. 2. Howard 5 mg p.r.n. 3. DuoNeb q.i.d. and p.r.n. 4. Aspirin 81 mg. 5. Lipitor 40 mg daily. 6. Decadron. 7. Neurontin. 8. Zofran. The doses are reviewed. PHYSICAL EXAM: Patient is alert, oriented x2. Pulse 78, blood pressure 155/60, respirations 20, temperature 96.5, pulse ox 97% on room air. HEENT: Conjunctivae normal. NECK: No jugular venous distention. CARDIOVASCULAR: S1, S2 muffled. RESPIRATORY: Breath sounds diminished in the bases. A few scattered rhonchi and crackles. ABDOMEN: Soft, nontender. No mass palpable. LEGS: No edema. NERVOUS SYSTEM: Weakness of the left upper and lower limbs present, 3 to 4 power. Gait cannot be tested. SKIN: No ulcer, rash, bleeding. LABS: WBC 16.2. Other labs are noted. Sodium 136. ASSESSMENT: 1. Acute stroke involving the right MCA territory causing left-sided weakness. 2. Gait dysfunction. 3. Left lower pneumonia possibly aspiration. 4. Troponin 0.06 indeterminate. 5. Increased WBC. RECOMMENDATIONS AND DISCUSSION: In this 87-year-old woman who presented with multiple complex medical issues. We will monitor the patient closely. Continue the current management and continue the symptomatic treatment. Continue with antiplatelet agents. Continue the rest of the medications. PT, OT evaluation. Possible ECF rehab. Discussed with family and discussed with daughter at the bedside. Further recommendations to follow. See orders for details. Medications are reviewed as mentioned earlier. The patient will definitely require rehab for continued evaluation and treatment. Further recommendations to follow. NATHALIE / RONEYN: [id number] /
[2017-07-21] MEDS: METOPROLOL TARTRATE 25 MG TAB PO SCH (20:19)
[2017-07-22] MEDS: DEXAMETHASONE SOD PHOSPHATE 4 MG/ML 1 ML VIAL IVP SCH ×7 (01:25→23:53)
[2017-07-22] MEDS: PIPERACILLIN-TAZOBACTAM 3.375 GM in DEXTROSE/WATER 1 50ML.BAG IVPB SCH ×3 (04:37→20:28)
[2017-07-22 09:27] LABS: Basophils % (A) 0 %; CH 30.4; CHCM 32.7; Eosinophils # (A) 0.1 k/uL (0-0.7); Eosinophils % (A) 1 %; HCT 29.8 % (34.0-46.0); HDW 2.36; Luc # (Auto) 0.14; Luc % (Auto) 1; Lymphocytes # (A) 4.8 k/uL (1.0-4.8); Lymphocytes % (A) 47 %; MCHC 33.1 g/dL (31.0-37.0); MCV 93.5 fL (80.0-100.0); Mean Platelet Volume 7.8; Monocytes # (A) 0.2 k/uL (0-1.0); Monocytes % (A) 2 %; Neutrophils # (A) 4.9 k/uL (1.3-7.7); Neutrophils % (A) 49 %; RBC 3.19 m/uL (3.80-5.40); RDW 13.8 % (11.5-15.5); WBC 10.2 k/uL (3.8-10.6); WBC (Perox) 10.69
[2017-07-22 09:28] LABS: HGB 9.9 gm/dL (11.4-16.0)
[2017-07-22 09:36] LABS: Anion Gap 7 mmol/L; Blood Urea Nitrogen 22 mg/dL (7-17); Calcium 8.5 mg/dL (8.4-10.2); Carbon Dioxide 25 mmol/L (22-30); Chloride 105 mmol/L (98-107); Glucose 158 mg/dL (74-99); Magnesium 1.8 mg/dL (1.6-2.3); Non-African American GFR(MDRD) >60 (>60 ml/min/1.73 sqM); Phosphorous 3.4 mg/dL (2.5-4.5); Potassium 3.4 mmol/L (3.5-5.1); Sodium 137 mmol/L (137-145)
[2017-07-22 09:59] LABS: Manual Review Performed
[2017-07-22] MEDS: ATORVASTATIN 40 MG TAB PO SCH (10:02)
[2017-07-22] MEDS: ASPIRIN 81 MG PO SCH (10:02)
[2017-07-22] MEDS: GABAPENTIN 100 MG CAP PO SCH ×2 (10:02→21:09)
[2017-07-22] MEDS: LISINOPRIL-HCTZ 20-12.5 MG 1 EACH TAB PO SCH ×2 (10:02→20:29)
[2017-07-22] MEDS: DEXTROSE 5%-0.45% NACL 1,000 ML IV SCH ×2 (10:03→20:28)
[2017-07-22] MEDS: PANTOPRAZOLE 40 MG/10 ML VIAL IV SCH (10:03)
[2017-07-22] MEDS: METOPROLOL TARTRATE 25 MG TAB PO SCH ×2 (10:03→20:29)
[2017-07-22] MEDS: ENOXAPARIN 40 MG/0.4 ML SYRINGE SQ SCH (10:04)
[2017-07-22] MEDS: HYDROcodone/APAP 5-325MG 1 EACH TAB PO PRN (10:14)
--- NOTE | 2017-07-22 15:20 | P.PN ---
Subjective Principal diagnosis: Uncontrolled hypertension This is a pleasant 87-year-old female patient with a past medical history significant for hypertension with no prior cardiac history of coronary artery disease or congestive heart failure or cardiac arrhythmia who was admitted to the hospital on July 172016 with what it seems to be community-acquired pneumonia. During her hospitalization the patient stroke and she developed left sided weakness. She workup and that revealed right hemispheric infarct. The patient was in the intensive care unit and she was transferred to the fourth floor. She does have left sided weakness and slurred speech. She denies having any chest pain or discomfort or difficulty breathing or heart racing or fluttering. The blood pressure is not well-controlled. I will continue the current medical treatment and add Norvasc to the current medical regimen. The echocardiogram showed normal LV function. Objective - Vital Signs Vital signs: Vital Signs Temp 97.3 F L 07/22/17 07:00 Pulse 52 L 07/22/17 07:00 Resp 22 07/22/17 07:00 BP 190/69 07/22/17 07:00 Pulse Ox 98 07/22/17 07:00 Intake & Output 07/21/17 07/22/17 07/22/17 18:59 06:59 18:59 Intake Total 644 200 Output Total 2300 Balance 644 -2300 200 Weight 67.9 kg Intake: Oral 644 200 Output: Urine 2300 Uretheral (Shane) 1400 Other: Voiding Method Indwelling Catheter Indwelling Catheter # Voids 675 0 # Bowel Movements 1 - Constitutional General appearance: Present: no acute distress - Respiratory Respiratory: bilateral: CTA - Cardiovascular Rhythm: regular Heart sounds: normal: S1, S2 - Labs CBC & Chem 7: 07/22/17 08:38 07/22/17 08:38 Labs: Abnormal Lab Results - Last 24 Hours (Table) 07/22/17 07/22/17 Range/Units 08:38 08:38 RBC 3.19 L (3.80-5.40) m/uL Hgb 9.9 L D (11.4-16.0) gm/dL Hct 29.8 L (34.0-46.0) % Potassium 3.4 L (3.5-5.1) mmol/L BUN 22 H (7-17) mg/dL Glucose 158 H (74-99) mg/dL Microbiology - Last 24 Hours (Table) 07/17/17 01:20 Blood Culture - Preliminary Blood No Growth after 120 hours Assessment and Plan Plan: This is a pleasant 87-year-old female patient with hypertension who developed an acute stroke. I will continue the current medical treatment and add Norvasc to the current medical regimen.
--- NOTE | 2017-07-22 19:12 | PN ---
PROGRESS NOTE DATE OF SERVICE: 07/22/2017 I am covering for Dr. Johns. INTERVAL HISTORY: This 87-year-old woman who was admitted with acute stroke involving the right MCA territory with left-sided weakness also was confused yesterday. The patient had some Ativan. Multiple consultants are following the patient closely including neurology, cardiology and pulmonology. PAST MEDICAL HISTORY: Reviewed. REVIEW OF SYSTEMS: Review of systems could not be taken. The patient is confused. CURRENT MEDICATIONS: 1. Tylenol 325 mg q.6 p.r.n. 2. [place] 5 mg q.8h p.r.n. 3. DuoNeb q.i.d. and p.r.n. 4. Norvasc 5 mg. 5. Aspirin 81 mg. 6. Lipitor 40 mg. 7. Decadron. 8. Lovenox. 9. Neurontin. 10.Zestoretic. 11.Ativan. 12.Lopressor. 13.Zofran. 14.Protonix. 15.Zosyn IV. Doses noted. PHYSICAL EXAM: Patient is alert, oriented x3. Pulse is 52, blood pressure 160/69, respirations 22, temperature 97.4, pulse ox 98% on room air. Blood pressure improved to 140/69. HEENT: Conjunctivae normal. Oral mucosa moist. NECK: No jugular venous distention. No carotid bruit. No lymph node enlargement. NO thyroid enlargement. CARDIOVASCULAR: S1, S2. RESPIRATORY: Breath sounds diminished in the bases. A few scattered rhonchi. No crackles. ABDOMEN: Soft, nontender. No mass palpable. LEGS: No edema. No swelling. NERVOUS SYSTEM: Higher function as mentioned early. Weakness of the left side which is slightly improving. SKIN: No ulcer, rash or bleeding. LABS: WBC 10.7, hemoglobin 9.7, sodium 130, potassium 3.4. ASSESSMENT: 1. Acute stroke involving the right MCA territory with left-sided weakness. 2. Gait dysfunction. 3. Left lower pneumonia possibly aspiration. 4. Troponin 0.06 indeterminate. 5. Increased WBC. RECOMMENDATIONS AND DISCUSSION: In this 87-year-old woman who presented with multiple complex medical issues. Will monitor the patient closely. Continue the current medications. Continue with antiplatelet agents and continue with Lipitor. Closely follow with multiple consultants. The prognosis is guarded because of the multiple complex medical issues. Further recommendations to follow. See orders for details. Discussed with the patient who understands and agrees. Dr. Johns will follow. MMODL / IJN: [id number] /
[2017-07-23] MEDS: PIPERACILLIN-TAZOBACTAM 3.375 GM in DEXTROSE/WATER 1 50ML.BAG IVPB SCH ×3 (03:57→20:12)
[2017-07-23] MEDS: DEXAMETHASONE SOD PHOSPHATE 4 MG/ML 1 ML VIAL IVP SCH ×6 (03:57→23:49)
[2017-07-23] MEDS: DEXTROSE 5%-0.45% NACL 1,000 ML IV SCH ×3 (04:04→23:49)
[2017-07-23] MEDS ORDERED: hydrALAZINE HCL 20 MG/ML 1 ML VIAL IVP STA (05:15)
[2017-07-23] MEDS: HYDROcodone/APAP 5-325MG 1 EACH TAB PO PRN ×3 (06:40→20:16)
--- NOTE | 2017-07-23 07:11 | P.PN ---
Subjective Dr. Alexa Powers was notified of change in this patient's mental status at 3:30 AM on 07/19/2017. Patient had symptoms of worsening right hemispheric stroke. This patient is a 87-year-old right-handed white female who was initially admitted to [facility] on 07/17/2017 with symptoms of multiple falls and generalized weakness. On her initial neurological examination the patient was found to have evidence of significant left-sided weakness. She underwent a MRI of the brain yesterday which did reveal evidence of multiple areas of acute infarction involving the right hemisphere of the brain. Given the multiple areas of acute infarction it was felt she likely had a cardioembolic stroke. Cardiology was consulted yesterday for evaluation of possible ALICIA procedure for this patient to further evaluate for PFO and/or atrial thrombus. The patient was seen yesterday evening on 07/18/2017 and appeared to show signs of some improvement in her speech. Early this morning at about 3 AM the nurse taking care of the patient noticed that she was having much more difficulty with her speech. She was much more dysarthric and dysphasic. Her left-sided weakness also significantly worsen. A code stroke was initiated and Dr. Alexa Powers was contacted by pager. We recommended a stat computed tomography scan of the brain to be done. This was completed this morning and the results indicate evidence of her large right frontal and parietal lobe stroke. He was also area involving the right frontal lobe and right cerebellar hemisphere. These are the same areas that was noted on the MRI of the brain that was done yesterday. Radiologist did not see any evidence of hemorrhagic transformation. We have recommended that the patient should be transferred into the intensive care unit for close supervision. We will start her on IV Decadron 10 mg IV push followed with a maintenance dose of 6 mg every 4 hours. The patient was reexamined this morning at 4:30 AM at her bedside. She seems to be resting comfortably. Her speech once again shows improvement from earlier this morning. She at this time seems to be near the level of function as she was last night. Her speech is dysarthric but not severe. She is noted to have left-sided hemiparesthesias. This also does not seem changed from yesterday. The code stroke network security administrator and nurse cranberry bog supervisor did contact the patient's daughter and son. They have made the patient a DO NOT RESUSCITATE CODE STATUS at this time. As noted she will be transferred up to the intensive care unit this morning as soon as a bed is available. The patient is now resting comfortably. She continues to show improvement overall following her recent stroke. Her speech deficit has stabilized. We're waiting whether cardiology will perform ALICIA procedure for this patient. We will have nursing staff contact cardiology specifically with this question. We will continue close neurological follow-up of this patient on the medical floor. Her overall prognosis at this time remains very guarded. Objective - Vital Signs Vital signs: Vital Signs Temp 97.8 F 07/22/17 15:00 Pulse 59 L 07/22/17 15:00 Resp 16 07/22/17 15:00 BP 146/59 07/22/17 15:00 Pulse Ox 97 07/22/17 15:00 Intake & Output 07/22/17 07/22/17 07/23/17 06:59 18:59 06:59 Intake Total 200 Output Total 2300 Balance -2300 200 Intake: Oral 200 Output: Urine 2300 Uretheral (Shane) 1400 Other: Voiding Method Indwelling Catheter # Voids 0 900 # Bowel Movements 1 - Exam Physical examination: PHYSICAL EXAMINATION: Patient is resting comfortably in bed. VITAL SIGNS: Blood pressure is [163/65]. Heart rate is [59]. Respiration is [18] . Temperature is [98.4]. HEENT: Head is atraumatic, neck is supple, there were no carotid bruits. CHEST: Lungs are clear to auscultation and percussion. CARDIAC: S1, S2 normal rate and rhythm. There is no murmur. ABDOMEN: Soft and nontender. Bowel sounds are present. EXTREMITIES: There is no pedal edema. Peripheral pulses are present. Neurological examination: Patient's neurological examination is unchanged from yesterday. She has evidence of a left facial droop with upper motor neuron findings. She has a left pronator drift and left-sided hemiparesthesias. Her speech remains dysphasic. Patient's speech appears to be stable at this time. Apparently earlier this morning she had very severe garbled speech and hard to comprehend. She now seems to be back to her baseline as she was yesterday evening. Her aphasia seems to be back seeing and waning. This will be closely monitored. - Labs CBC & Chem 7: 07/22/17 08:38 07/22/17 08:38 Labs: Abnormal Lab Results - Last 24 Hours (Table) 07/22/17 07/22/17 Range/Units 08:38 08:38 RBC 3.19 L (3.80-5.40) m/uL Hgb 9.9 L D (11.4-16.0) gm/dL Hct 29.8 L (34.0-46.0) % Potassium 3.4 L (3.5-5.1) mmol/L BUN 22 H (7-17) mg/dL Glucose 158 H (74-99) mg/dL Microbiology - Last 24 Hours (Table) 07/17/17 01:20 Blood Culture - Preliminary Blood No Growth after 120 hours Assessment and Plan (1) Acute right arterial ischemic stroke, MCA (middle cerebral artery) Status: Acute Code(s): I63.511 - CEREB INFRC D/T UNSP OCCLS OR STENOS OF RIGHT MID CEREB ART (2) Multiple falls Status: Acute Code(s): R29.6 - REPEATED FALLS (3) Debility Status: Acute Code(s): R53.81 - OTHER MALAISE (4) Community acquired pneumonia Status: Acute Code(s): J18.9 - PNEUMONIA, UNSPECIFIED ORGANISM Plan: This patient is a 87-year-old right-handed white female who initially was admitted to [facility] with symptoms of multiple falls and generalized weakness. Patient was brought into the emergency room and underwent an initial computed tomography scan of the brain which was reported negative for any acute stroke or hemorrhage. Patient was seen none neurology consultation and clearly had evidence of left-sided hemiparesis. She has a left facial droop as well as evidence of an expressive aphasia. She was recommended to undergo MRI of the brain which was completed yesterday. MRI revealed multiple areas of acute infarction involving the right hemisphere. There was no evidence of hemorrhagic transformation. We have recommended cardiology to be consulted for further evaluation for ALICIA procedure for this patient. The patient was seen yesterday evening on neurology follow-up. At that time she showed slight improvement with her speech which was less dysphasic. This morning at about 3 AM the patient showed worsening signs of left-sided weakness and worsening aphasia. A code stroke was initiated. Dr. Alexa Powers was notified by pager of her sudden decline and change. Patient was seen at 4:30 AM on the 5 E. medical floor. She once again seem to be back to her baseline. She did not demonstrate evidence of severe aphasia at this time. Her left-sided hemiparesis appears to be unchanged from previous. The patient was sent for a repeat computed tomography scan of the brain given the changes in her neurological status. CAT scan was reported by the radiologist today are showing new areas of right frontal and parietal lobe infarction. There is also area of infarction involving the right cerebellar hemisphere. These findings were noted on her MRI of the brain that was done yesterday. Given her current change in her neurological status we have recommended that she be transferred to the intensive care unit for close monitoring. The nursing staff did contact the patient's daughter and son. They have now made the patient a DO NOT RESUSCITATE status. We will transfer this patient to the intensive care unit once a bed becomes available. We will start her on IV Decadron 10 mg IV push followed by maintenance dose of IV Decadron 6 mg every 4 hours. We will plan to get a repeat computed tomography scan of the brain tomorrow as a short-term follow-up. This CAT scan was repeated and fails to reveal any new areas of stroke. We are still awaiting cardiology's input regarding possible ALICIA procedure for this patient. The patient is able to answer questions appropriately this morning. We will need to put her on neuro checks with close monitoring on the medical floor. We will continue close neurological follow-up of this patient during this admission. We will contact the patient's daughter by phone later this morning to update her on her overall neurological status. Her overall prognosis at this time remains very guarded.
[2017-07-23] MEDS: amLODIPine 5 MG TAB PO SCH (09:21)
[2017-07-23] MEDS: ASPIRIN 81 MG PO SCH (09:21)
[2017-07-23] MEDS: GABAPENTIN 100 MG CAP PO SCH ×3 (09:22→21:08)
[2017-07-23] MEDS: LISINOPRIL-HCTZ 20-12.5 MG 1 EACH TAB PO SCH ×2 (09:22→20:13)
[2017-07-23] MEDS: ENOXAPARIN 40 MG/0.4 ML SYRINGE SQ SCH (09:22)
[2017-07-23] MEDS: ATORVASTATIN 40 MG TAB PO SCH (09:22)
[2017-07-23] MEDS: PANTOPRAZOLE 40 MG/10 ML VIAL IV SCH (09:23)
[2017-07-23] MEDS: METOPROLOL TARTRATE 25 MG TAB PO SCH ×2 (09:23→20:13)
[2017-07-23 09:46] LABS: Basophils # (A) 0.1 k/uL (0-0.2); Basophils % (A) 1 %; CH 30.5; CHCM 32.9; Eosinophils # (A) 0.1 k/uL (0-0.7); Eosinophils % (A) 0 %; HCT 38.6 % (34.0-46.0); HGB 12.6 gm/dL (11.4-16.0); Luc # (Auto) 0.26; Luc % (Auto) 1; Lymphocytes # (A) 9.9 k/uL (1.0-4.8); Lymphocytes % (A) 50 %; MCH 30.4 pg (25.0-35.0); MCHC 32.6 g/dL (31.0-37.0); MCV 93.3 fL (80.0-100.0); Mean Platelet Volume 6.9; Monocytes # (A) 0.4 k/uL (0-1.0); Monocytes % (A) 2 %; Neutrophils # (A) 9.2 k/uL (1.3-7.7); Neutrophils % (A) 46 %; RBC 4.14 m/uL (3.80-5.40); WBC 19.9 k/uL (3.8-10.6); WBC (Perox) 20.26
[2017-07-23 10:46] LABS: Anion Gap 11 mmol/L; Blood Urea Nitrogen 25 mg/dL (7-17); Calcium 8.6 mg/dL (8.4-10.2); Carbon Dioxide 21 mmol/L (22-30); Chloride 105 mmol/L (98-107); Glucose 178 mg/dL (74-99); Magnesium 1.6 mg/dL (1.6-2.3); Non-African American GFR(MDRD) >60 (>60 ml/min/1.73 sqM); Phosphorous 3.4 mg/dL (2.5-4.5); Sodium 137 mmol/L (137-145)
[2017-07-23] MEDS ORDERED: Potassium Replacement Protocol 1 EACH MISC MISCELLANE PRN ×2 (10:59→20:41)
[2017-07-23 11:15] LABS: Manual Review Performed
[2017-07-23 11:20] LABS: RBC Morphology Normal
[2017-07-23] MEDS: FOLIC ACID 1 MG TAB PO SCH (11:21)
[2017-07-23] MEDS: THIAMINE 100 MG TAB PO SCH (11:21)
[2017-07-23] MEDS: MULTIVITAMINS, THERA 1 EACH TAB PO SCH (11:21)
[2017-07-23] MEDS ORDERED: POTASSIUM CHLORIDE 10 MEQ, LIDOCAINE 2% INJ 10 MG in SODIUM CHLORIDE 0.9% 100 ML IV SCH (12:00)
--- NOTE | 2017-07-23 13:33 | P.PN ---
Subjective This is a pleasant 87-year-old female. She has past medical history significant for hypertension only. She denies any history of CAD or heart failure. She was initially admitted to the hospital for pneumonia and subsequently had a right hemisperic infarct. We have are seeing this patient today in follow up from previous consultation for uncontrolled hypertension. She denies chest pain, shortness of breath, dizziness, palpitations or nausea. Blood pressure today at 0630 218/70, orders were given for IV hydralazine. Repeat presure is 134/84 with heart rate 84. At home she was taking Zestoretic 20/12.5 daily. We have added norvasc 5 mg daily and lopressor 25 mg BID. Of note , she is also getting IV decadron q4hrs. Objective - Vital Signs Vital signs: Vital Signs Temp 97.5 F L 07/23/17 07:30 Pulse 84 07/23/17 07:30 Resp 16 07/23/17 07:30 BP 134/84 07/23/17 07:30 Pulse Ox 96 07/23/17 07:30 Intake & Output 07/22/17 07/23/17 07/23/17 18:59 06:59 18:59 Intake Total 200 Output Total 900 Balance 200 -900 Intake: Oral 200 Output: Urine 900 Other: Voiding Method Indwelling Catheter Indwelling Catheter # Voids 900 # Bowel Movements 1 2 - Exam GENERAL: Well-appearing, well-nourished and in no acute distress. NECK: Supple without JVD or thyromegaly. LUNGS: Breath sounds clear to auscultation bilaterally. Respiration equal and unlabored. No wheezes, rales or rhonchi. HEART: Regular rate and rhythm without murmurs, rubs or gallops. S1 and S2 heard. - Labs CBC & Chem 7: 07/23/17 09:26 07/23/17 09:26 Labs: Abnormal Lab Results - Last 24 Hours (Table) 07/23/17 07/23/17 Range/Units : 09:26 WBC 19.9 H (3.8-10.6) k/uL Plt Count 537 H D (150-450) k/uL Neutrophils # 9.2 H (1.3-7.7) k/uL Lymphocytes # 9.9 H (1.0-4.8) k/uL Potassium 3.0 L* (3.5-5.1) mmol/L Carbon Dioxide 21 L (22-30) mmol/L BUN 25 H (7-17) mg/dL Glucose 178 H (74-99) mg/dL Microbiology - Last 24 Hours (Table) 07/17/17 01:20 Blood Culture - Final Blood No Growth after 144 hours Assessment and Plan Plan: ASSESSMENT 1. Essential hypertension, uncontrolled 2. Acute CVA 3. Hypokalemia, 3.0. Actively being replaced. PLAN From cardiology perspective we recommend monitor blood pressure every 4 hrs of the next 24hrs, continue with telemetry monitoring to assess for acute arrhythmia or patient has severe hypokalemia. Repeat lytes in the am. We will continue to follow this patient. Nurse Practitioner note has been reviewed, I agree with a documented findings and plan of care. Patient was seen and examined.
[2017-07-23 15:26] VITALS: BMI 25.7
[2017-07-23] MEDS: POTASSIUM CHLORIDE ER 20 MEQ TAB.ER PO SCH ×2 (21:08→23:39)
--- NOTE | 2017-07-23 22:22 | P.PN ---
Subjective Dr. Alexa Powers was notified of change in this patient's mental status at 3:30 AM on 07/19/2017. Patient had symptoms of worsening right hemispheric stroke. This patient is a 87-year-old right-handed white female who was initially admitted to [facility] on 07/17/2017 with symptoms of multiple falls and generalized weakness. On her initial neurological examination the patient was found to have evidence of significant left-sided weakness. She underwent a MRI of the brain yesterday which did reveal evidence of multiple areas of acute infarction involving the right hemisphere of the brain. Given the multiple areas of acute infarction it was felt she likely had a cardioembolic stroke. Cardiology was consulted yesterday for evaluation of possible ALICIA procedure for this patient to further evaluate for PFO and/or atrial thrombus. The patient was seen yesterday evening on 07/18/2017 and appeared to show signs of some improvement in her speech. Early this morning at about 3 AM the nurse taking care of the patient noticed that she was having much more difficulty with her speech. She was much more dysarthric and dysphasic. Her left-sided weakness also significantly worsen. A code stroke was initiated and Dr. Alexa Powers was contacted by pager. We recommended a stat computed tomography scan of the brain to be done. This was completed this morning and the results indicate evidence of her large right frontal and parietal lobe stroke. He was also area involving the right frontal lobe and right cerebellar hemisphere. These are the same areas that was noted on the MRI of the brain that was done yesterday. Radiologist did not see any evidence of hemorrhagic transformation. We have recommended that the patient should be transferred into the intensive care unit for close supervision. We will start her on IV Decadron 10 mg IV push followed with a maintenance dose of 6 mg every 4 hours. The patient was reexamined this morning at 4:30 AM at her bedside. She seems to be resting comfortably. Her speech once again shows improvement from earlier this morning. She at this time seems to be near the level of function as she was last night. Her speech is dysarthric but not severe. She is noted to have left-sided hemiparesthesias. This also does not seem changed from yesterday. The code stroke network support administrator and nurse corduroy cutting supervisor did contact the patient's daughter and son. They have made the patient a DO NOT RESUSCITATE CODE STATUS at this time. As noted she will be transferred up to the intensive care unit this morning as soon as a bed is available. The patient is now resting comfortably. She continues to show improvement overall following her recent stroke. Her speech deficit has stabilized. Patient's prognosis remains fair. She has shown improvement with her recent stroke in terms of cognitive function. We will continue close neurological follow-up with this patient. We are still waiting to see if ALICIA procedure is to be done for this patient by cardiology. We will have nursing staff contact cardiology specifically with this question. We will continue close neurological follow-up of this patient on the medical floor. Her overall prognosis at this time remains very guarded. Objective - Vital Signs Vital signs: Vital Signs Temp 96.6 F L 07/23/17 19:53 Pulse 71 07/23/17 19:53 Resp 18 07/23/17 19:53 BP 190/70 07/23/17 19:53 Pulse Ox 100 07/23/17 19:53 Intake & Output 07/23/17 07/23/17 07/24/17 06:59 18:59 06:59 Intake Total 600 Output Total 900 Balance -900 600 Weight 67.9 kg Intake: Oral 600 Output: Urine 900 Other: Voiding Method Indwelling Catheter Bedside Commode # Voids 2 1 # Bowel Movements 2 1 - Exam Physical examination: PHYSICAL EXAMINATION: Patient is resting comfortably in bed. VITAL SIGNS: Blood pressure is [190/70]. Heart rate is [71]. Respiration is [18] . Temperature is [96.6]. HEENT: Head is atraumatic, neck is supple, there were no carotid bruits. CHEST: Lungs are clear to auscultation and percussion. CARDIAC: S1, S2 normal rate and rhythm. There is no murmur. ABDOMEN: Soft and nontender. Bowel sounds are present. EXTREMITIES: There is no pedal edema. Peripheral pulses are present. Neurological examination: Patient's neurological examination is unchanged from yesterday. She has evidence of a left facial droop with upper motor neuron findings. She has a left pronator drift and left-sided hemiparesthesias. Her speech remains dysphasic. Patient's speech appears to be stable at this time. Apparently earlier this morning she had very severe garbled speech and hard to comprehend. She now seems to be back to her baseline as she was yesterday evening. Her aphasia seems to be back seeing and waning. This will be closely monitored. - Labs CBC & Chem 7: 07/23/17 09:26 07/23/17 19:27 Labs: Abnormal Lab Results - Last 24 Hours (Table) 07/23/17 07/23/17 07/23/17 Range/Units 09:26 09: 19:27 WBC 19.9 H (3.8-10.6) k/uL Plt Count 537 H D (150-450) k/uL Neutrophils # 9.2 H (1.3-7.7) k/uL Lymphocytes # 9.9 H (1.0-4.8) k/uL Potassium 3.0 L* 3.1 L (3.5-5.1) mmol/L Carbon Dioxide 21 L (22-30) mmol/L BUN 25 H (7-17) mg/dL Glucose 178 H (74-99) mg/dL Microbiology - Last 24 Hours (Table) 07/17/17 01:20 Blood Culture - Final Blood No Growth after 144 hours Assessment and Plan (1) Acute right arterial ischemic stroke, MCA (middle cerebral artery) Status: Acute Code(s): I63.511 - CEREB INFRC D/T UNSP OCCLS OR STENOS OF RIGHT MID CEREB ART (2) Multiple falls Status: Acute Code(s): R29.6 - REPEATED FALLS (3) Debility Status: Acute Code(s): R53.81 - OTHER MALAISE (4) Community acquired pneumonia Status: Acute Code(s): J18.9 - PNEUMONIA, UNSPECIFIED ORGANISM Plan: This patient is a 87-year-old right-handed white female who initially was admitted to [facility] with symptoms of multiple falls and generalized weakness. Patient was brought into the emergency room and underwent an initial computed tomography scan of the brain which was reported negative for any acute stroke or hemorrhage. Patient was seen none neurology consultation and clearly had evidence of left-sided hemiparesis. She has a left facial droop as well as evidence of an expressive aphasia. She was recommended to undergo MRI of the brain which was completed yesterday. MRI revealed multiple areas of acute infarction involving the right hemisphere. There was no evidence of hemorrhagic transformation. We have recommended cardiology to be consulted for further evaluation for ALICIA procedure for this patient. The patient was seen yesterday evening on neurology follow-up. At that time she showed slight improvement with her speech which was less dysphasic. This morning at about 3 AM the patient showed worsening signs of left-sided weakness and worsening aphasia. A code stroke was initiated. Dr. Alexa Powers was notified by pager of her sudden decline and change. Patient was seen at 4:30 AM on the 5 E. medical floor. She once again seem to be back to her baseline. She did not demonstrate evidence of severe aphasia at this time. Her left-sided hemiparesis appears to be unchanged from previous. The patient was sent for a repeat computed tomography scan of the brain given the changes in her neurological status. CAT scan was reported by the radiologist today are showing new areas of right frontal and parietal lobe infarction. There is also area of infarction involving the right cerebellar hemisphere. These findings were noted on her MRI of the brain that was done yesterday. Given her current change in her neurological status we have recommended that she be transferred to the intensive care unit for close monitoring. The nursing staff did contact the patient's daughter and son. They have now made the patient a DO NOT RESUSCITATE status. We will transfer this patient to the intensive care unit once a bed becomes available. We will start her on IV Decadron 10 mg IV push followed by maintenance dose of IV Decadron 6 mg every 4 hours. We will plan to get a repeat computed tomography scan of the brain tomorrow as a short-term follow-up. This CAT scan was repeated and fails to reveal any new areas of stroke. We are still awaiting cardiology's input regarding possible ALICIA procedure for this patient. The patient is able to answer questions appropriately this morning. We will need to put her on neuro checks with close monitoring on the medical floor. Patient is being considered for inpatient rehab. We will await further recommendations from PT/OT for the patient. We will continue close neurological follow-up of this patient during this admission. Patient is being considered for inpatient rehab. We will contact the patient's daughter by phone later this morning to update her on her overall neurological status. Her overall prognosis at this time remains very guarded.
--- NOTE | 2017-07-23 23:24 | P.PN ---
Subjective Principal diagnosis: CVA signs/facial droop. The patient is an 87-year-old white female essentially admitted for pneumonia with fall and a left foot abnormalities. Unfortunately, she's developed CVA. She's now been transferred to the ICU secondary to code stroke element. She states she does not want to have any aggressive maneuvers. She is quite lucid otherwise. She has strength in the left upper extremity, however she has significant lack of feeling on the left upper extremity. Objective - Vital Signs Vital signs: Vital Signs Temp 98.3 F 07/23/17 23:00 Pulse 57 L 07/23/17 23:00 Resp 18 07/23/17 23:00 BP 179/87 07/23/17 23:00 Pulse Ox 100 07/23/17 19:53 Intake & Output 07/23/17 07/23/17 07/24/17 06:59 18:59 06:59 Intake Total 600 100 Output Total 900 Balance -900 600 100 Weight 67.9 kg Intake: Oral 600 100 Output: Urine 900 Other: Voiding Method Indwelling Catheter Bedside Commode # Voids 2 1 # Bowel Movements 2 1 - Constitutional General appearance: Present: average body habitus - EENT Eyes: Absent: abnormal pupil - Respiratory Respiratory: bilateral: CTA - Cardiovascular Rhythm: regular Heart sounds: normal: S1, S2 - Gastrointestinal General gastrointestinal: Present: soft. Absent: tenderness - Neurologic Neurologic: Present: CNII-XII intact - Labs CBC & Chem 7: 07/23/17 09:26 07/23/17 19:27 Labs: Abnormal Lab Results - Last 24 Hours (Table) 07/23/17 07/23/17 07/23/17 Range/Units 09:26 09: 19:27 WBC 19.9 H (3.8-10.6) k/uL Plt Count 537 H D (150-450) k/uL Neutrophils # 9.2 H (1.3-7.7) k/uL Lymphocytes # 9.9 H (1.0-4.8) k/uL Potassium 3.0 L* 3.1 L (3.5-5.1) mmol/L Carbon Dioxide 21 L (22-30) mmol/L BUN 25 H (7-17) mg/dL Glucose 178 H (74-99) mg/dL Microbiology - Last 24 Hours (Table) 07/17/17 01:20 Blood Culture - Final Blood No Growth after 144 hours Assessment and Plan (1) Community acquired pneumonia Status: Acute (2) Dehydration Status: Acute (3) Weakness Status: Acute (4) Diarrhea Status: Acute Plan: Discharge planning for possible inpatient versus ECF type rehabilitation. Check CMP in a.m. Appreciate neurology input. PT/OT and speech are currently working with the patient. See orders otherwise. Time with Patient: Greater than 30
[2017-07-24] MEDS ORDERED: Potassium Replacement Protocol 1 EACH MISC MISCELLANE PRN (02:15)
[2017-07-24] MEDS: PIPERACILLIN-TAZOBACTAM 3.375 GM in DEXTROSE/WATER 1 50ML.BAG IVPB SCH ×3 (02:57→20:59)
[2017-07-24] MEDS: DEXAMETHASONE SOD PHOSPHATE 4 MG/ML 1 ML VIAL IVP SCH ×3 (02:58→11:04)
[2017-07-24] MEDS ORDERED: POTASSIUM CHLORIDE ER 20 MEQ TAB.ER PO SCH (03:00)
[2017-07-24] MEDS: INSULIN LISPRO (humaLOG) 300 UNIT/3 ML VIAL SQ SCH ×4 (08:24→21:07)
[2017-07-24] MEDS: SODIUM CHLORIDE 0.45% 1,000 ML IV SCH (08:24)
[2017-07-24 08:25] LABS: Glucose,Whole Blood 136 mg/dL (75-99)
[2017-07-24] MEDS: GABAPENTIN 100 MG CAP PO SCH ×3 (08:25→21:00)
[2017-07-24] MEDS: LISINOPRIL-HCTZ 20-12.5 MG 1 EACH TAB PO SCH ×2 (08:25→21:00)
[2017-07-24] MEDS: METOPROLOL TARTRATE 25 MG TAB PO SCH ×2 (08:25→21:00)
[2017-07-24] MEDS: PANTOPRAZOLE 40 MG/10 ML VIAL IV SCH (08:25)
[2017-07-24] MEDS: ENOXAPARIN 40 MG/0.4 ML SYRINGE SQ SCH (08:25)
[2017-07-24] MEDS: amLODIPine 5 MG TAB PO SCH (08:26)
[2017-07-24] MEDS: ASPIRIN 81 MG PO SCH (08:26)
[2017-07-24] MEDS: ATORVASTATIN 40 MG TAB PO SCH (08:43)
[2017-07-24 10:34] LABS: Eosinophils # (A) 0.1 k/uL (0-0.7); Eosinophils % (A) 0 %; HCT 39.2 % (34.0-46.0); MCHC 33.1 g/dL (31.0-37.0); Monocytes % (A) 2 %
[2017-07-24 10:36] LABS: Basophils # (A) 0.2 k/uL (0-0.2); Basophils % (A) 1 %; CH 30.6; CHCM 33.2; HDW 2.38; Luc # (Auto) 0.36; Luc % (Auto) 1; Lymphocytes # (A) 14.5 k/uL (1.0-4.8); Lymphocytes % (A) 54 %; MCH 30.6 pg (25.0-35.0); MCV 92.4 fL (80.0-100.0); Mean Platelet Volume 7.3; Monocytes # (A) 0.5 k/uL (0-1.0); Neutrophils # (A) 11.5 k/uL (1.3-7.7); Neutrophils % (A) 42 %; RBC 4.25 m/uL (3.80-5.40); RDW 14.1 % (11.5-15.5); WBC (Perox) 26.74
[2017-07-24 10:41] LABS: WBC 27.1 k/uL (3.8-10.6)
[2017-07-24] MEDS: DEXTROSE 5%-0.45% NACL 1,000 ML IV SCH (10:49)
[2017-07-24 10:55] LABS: Anion Gap 9 mmol/L; Blood Urea Nitrogen 31 mg/dL (7-17); Calcium 8.4 mg/dL (8.4-10.2); Carbon Dioxide 23 mmol/L (22-30); Chloride 105 mmol/L (98-107); Glucose 113 mg/dL (74-99); Magnesium 1.8 mg/dL (1.6-2.3); Non-African American GFR(MDRD) >60 (>60 ml/min/1.73 sqM); Phosphorous 4.1 mg/dL (2.5-4.5); Potassium 3.9 mmol/L (3.5-5.1); Sodium 137 mmol/L (137-145)
[2017-07-24] MEDS: FOLIC ACID 1 MG TAB PO SCH (11:02)
[2017-07-24] MEDS: MULTIVITAMINS, THERA 1 EACH TAB PO SCH (11:02)
[2017-07-24] MEDS: THIAMINE 100 MG TAB PO SCH (11:14)
[2017-07-24] MEDS: HYDROcodone/APAP 5-325MG 1 EACH TAB PO PRN ×2 (11:17→22:30)
[2017-07-24 11:27] LABS: Manual Review Performed
[2017-07-24 11:41] LABS: Glucose,Whole Blood 113 mg/dL (75-99)
[2017-07-24 13:57] LABS: Hemoglobin A1C 5.5 % (4.2-6.1)
[2017-07-24 16:57] LABS: Glucose,Whole Blood 120 mg/dL (75-99)
[2017-07-24] MEDS: DEXAMETHASONE SOD PHOSPHATE 4 MG/ML 1 ML VIAL IV SCH (17:37)
[2017-07-24 21:01] LABS: Glucose,Whole Blood 168 mg/dL (75-99)
[2017-07-25] MEDS: PIPERACILLIN-TAZOBACTAM 3.375 GM in DEXTROSE/WATER 1 50ML.BAG IVPB SCH ×3 (03:03→19:41)
[2017-07-25] MEDS: DEXAMETHASONE SOD PHOSPHATE 4 MG/ML 1 ML VIAL IV SCH ×4 (06:12→23:24)
[2017-07-25 07:36] LABS: Glucose,Whole Blood 86 mg/dL (75-99)
[2017-07-25] MEDS: INSULIN LISPRO (humaLOG) 300 UNIT/3 ML VIAL SQ SCH ×4 (07:51→21:50)
[2017-07-25] MEDS: HYDROcodone/APAP 5-325MG 1 EACH TAB PO PRN ×2 (07:51→19:25)
[2017-07-25] MEDS: GABAPENTIN 100 MG CAP PO SCH ×3 (07:52→21:50)
[2017-07-25] MEDS: ASPIRIN 81 MG PO SCH (07:52)
[2017-07-25] MEDS: amLODIPine 5 MG TAB PO SCH (07:52)
[2017-07-25] MEDS: ENOXAPARIN 40 MG/0.4 ML SYRINGE SQ SCH (07:52)
[2017-07-25] MEDS: ATORVASTATIN 40 MG TAB PO SCH (07:52)
[2017-07-25] MEDS: PANTOPRAZOLE 40 MG/10 ML VIAL IV SCH (07:53)
[2017-07-25] MEDS: METOPROLOL TARTRATE 25 MG TAB PO SCH ×2 (07:53→20:26)
[2017-07-25] MEDS: LISINOPRIL-HCTZ 20-12.5 MG 1 EACH TAB PO SCH ×2 (07:53→20:26)
[2017-07-25] MEDS: SODIUM CHLORIDE 0.45% 1,000 ML IV SCH (08:00)
--- NOTE | 2017-07-25 08:22 | P.PN ---
Subjective Principal diagnosis: CVA signs/facial droop. The patient is an 87-year-old white female essentially admitted for pneumonia with fall and a left foot abnormalities. Unfortunately, she's developed CVA. She's now been transferred to the ICU secondary to code stroke element. She states she does not want to have any aggressive maneuvers. She is quite lucid otherwise. She has strength in the left upper extremity, however she has significant lack of feeling on the left upper extremity. We are anticipating transfer to [facility]. Objective - Vital Signs Vital signs: Vital Signs Temp 96.8 F L 07/25/17 07:00 Pulse 69 07/25/17 07:00 Resp 18 07/25/17 07:00 BP 187/66 07/25/17 07:00 Pulse Ox 98 07/25/17 07:00 Intake & Output 07/24/17 07/25/17 07/25/17 18:59 06:59 18:59 Intake Total 450 300 Output Total 900 Balance -450 300 Weight 67.9 kg Intake: Intake, IV Titration 150 Amount Piperacillin-Tazobactam 3 50 .375 gm In Dextrose/Water 1 50ml.bag @ 12.5 mls/hr IVPB Q8H [facility] Rx#: [id number] Sodium Chloride 0.45% 1, 100 000 ml @ 20 mls/hr IV . Q24H [facility] Rx#:[id number] Oral 300 300 Output: Urine 900 Other: Voiding Method Bedside Commode Bedside Commode Diaper Diaper # Voids 6 4 # Bowel Movements 2 2 - Constitutional General appearance: Present: average body habitus - EENT Eyes: Absent: abnormal pupil - Respiratory Respiratory: bilateral: CTA - Cardiovascular Rhythm: regular Heart sounds: normal: S1, S2 - Gastrointestinal General gastrointestinal: Present: soft. Absent: tenderness - Musculoskeletal Musculoskeletal: Present: left sided weakness - Allied health notes Allied health notes reviewed: case management - Labs CBC & Chem 7: 07/24/17 10:09 07/24/17 10:09 Labs: Abnormal Lab Results - Last 24 Hours (Table) 07/24/17 07/24/17 07/24/17 Range/Units 08:09 10:09 10:09 WBC 27.1 H* (3.8-10.6) k/uL Plt Count 613 H (150-450) k/uL Neutrophils # 11.5 H (1.3-7.7) k/uL Lymphocytes # 14.5 H (1.0-4.8) k/uL BUN 31 H (7-17) mg/dL Glucose 113 H (74-99) mg/dL POC Glucose (mg/dL) 136 H (75-99) mg/dL 07/24/17 07/24/17 07/24/17 Range/Units 11:34 16:44 20:41 WBC (3.8-10.6) k/uL Plt Count (150-450) k/uL Neutrophils # (1.3-7.7) k/uL Lymphocytes # (1.0-4.8) k/uL BUN (7-17) mg/dL Glucose (74-99) mg/dL POC Glucose (mg/dL) 113 H 120 H 168 H (75-99) mg/dL Assessment and Plan (1) Community acquired pneumonia Status: Acute (2) Dehydration Status: Acute (3) Weakness Status: Acute (4) Diarrhea Status: Acute Plan: We'll transfer to ECF once cleared by consultants. She is hemodynamically stable otherwise. See orders otherwise and we'll continue to follow.
[2017-07-25] MEDS ORDERED: amLODIPine 5 MG TAB PO STA (11:46)
--- NOTE | 2017-07-25 11:47 | P.PN ---
Progress Note - Text Patient interviewed and examined. Blood pressure is still elevated. Right arm blood pressure was 180/63 mmHg. Left arm blood pressure was 168/68 mmHg Suggest Increase amlodipine to 10 mg by mouth daily starting today. Give an extra 5 mg dose today continue metoprolol and continue Zestoretic Please see full dictation by nurse practitioner
[2017-07-25] MEDS: THIAMINE 100 MG TAB PO SCH (12:07)
[2017-07-25] MEDS: MULTIVITAMINS, THERA 1 EACH TAB PO SCH (12:07)
[2017-07-25] MEDS: FOLIC ACID 1 MG TAB PO SCH (12:07)
[2017-07-25 12:16] LABS: Glucose,Whole Blood 89 mg/dL (75-99)
--- NOTE | 2017-07-25 14:05 | P.PN ---
Subjective This is a pleasant 87-year-old female. She has past medical history significant for hypertension only. She denies any history of CAD or heart failure. She was initially admitted to the hospital for pneumonia and subsequently had a right hemisperic infarct. We have are seeing this patient today in follow up from previous consultation for uncontrolled hypertension. She denies chest pain, shortness of breath, dizziness, palpitations or nausea. We checked blood pressure in both arms ourselves today right arm 180/63; left arm 169/58. She is currently being given zestoretic 20/12.5 daily, norvasc 5 mg daily and lopressor 25 mg BID. Of note, she is also getting IV decadron q4hrs. She denies chest pain, shortness of breath, dizziness, palpitations or headache at this time. Objective - Vital Signs Vital signs: Vital Signs Temp 97.5 F L 07/25/17 11:00 Pulse 60 07/25/17 11:00 Resp 18 07/25/17 11:00 BP 156/70 07/25/17 11:00 Pulse Ox 98 07/25/17 11:00 Intake & Output 07/24/17 07/25/17 07/25/17 18:59 06:59 18:59 Intake Total 450 300 Output Total 900 Balance -450 300 Weight 67.9 kg Intake: Intake, IV Titration 150 Amount Piperacillin-Tazobactam 3 50 .375 gm In Dextrose/Water 1 50ml.bag @ 12.5 mls/hr IVPB Q8H [facility] Rx#: [id number] Sodium Chloride 0.45% 1, 100 000 ml @ 20 mls/hr IV . Q24H [facility] Rx#:[id number] Oral 300 300 Output: Urine 900 Other: Voiding Method Bedside Commode Bedside Commode Bedpan Diaper Diaper # Voids 6 4 # Bowel Movements 2 2 - Exam GENERAL: Well-appearing, well-nourished and in no acute distress. NECK: Supple without JVD or thyromegaly. LUNGS: Breath sounds clear to auscultation bilaterally. Respiration equal and unlabored. No wheezes, rales or rhonchi. HEART: Regular rate and rhythm without murmurs, rubs or gallops. S1 and S2 heard. - Labs CBC & Chem 7: 07/24/17 10:09 07/24/17 10:09 Labs: Abnormal Lab Results - Last 24 Hours (Table) 07/24/17 07/24/17 Range/Units 16:44 20:41 POC Glucose (mg/dL) 120 H 168 H (75-99) mg/dL Assessment and Plan Plan: ASSESSMENT 1. Essential hypertension, uncontrolled 2. Acute CVA 3. Hypokalemia, resolved PLAN Increase amlodipine to 10 mg daily starting today, give an extra 5mg dose today. Continue metoprolol and zestoretic as previously prescribed. Nurse Practitioner note has been reviewed, I agree with a documented findings and plan of care. Patient was seen and examined.
[2017-07-25 17:36] LABS: Glucose,Whole Blood 115 mg/dL (75-99)
[2017-07-25 19:19] VITALS: RESP 20
--- NOTE | 2017-07-25 19:19 | P.PN ---
Subjective Dr. Alexa Powers was notified of change in this patient's mental status at 3:30 AM on 07/19/2017. Patient had symptoms of worsening right hemispheric stroke. This patient is a 87-year-old right-handed white female who was initially admitted to [facility] on 07/17/2017 with symptoms of multiple falls and generalized weakness. On her initial neurological examination the patient was found to have evidence of significant left-sided weakness. She underwent a MRI of the brain yesterday which did reveal evidence of multiple areas of acute infarction involving the right hemisphere of the brain. Given the multiple areas of acute infarction it was felt she likely had a cardioembolic stroke. Cardiology was consulted yesterday for evaluation of possible ALICIA procedure for this patient to further evaluate for PFO and/or atrial thrombus. The patient was seen yesterday evening on 07/18/2017 and appeared to show signs of some improvement in her speech. Early this morning at about 3 AM the nurse taking care of the patient noticed that she was having much more difficulty with her speech. She was much more dysarthric and dysphasic. Her left-sided weakness also significantly worsen. A code stroke was initiated and Dr. Alexa Powers was contacted by pager. We recommended a stat computed tomography scan of the brain to be done. This was completed this morning and the results indicate evidence of her large right frontal and parietal lobe stroke. He was also area involving the right frontal lobe and right cerebellar hemisphere. These are the same areas that was noted on the MRI of the brain that was done yesterday. Radiologist did not see any evidence of hemorrhagic transformation. We have recommended that the patient should be transferred into the intensive care unit for close supervision. We will start her on IV Decadron 10 mg IV push followed with a maintenance dose of 6 mg every 4 hours. The patient was reexamined this morning at 4:30 AM at her bedside. She seems to be resting comfortably. Her speech once again shows improvement from earlier this morning. She at this time seems to be near the level of function as she was last night. Her speech is dysarthric but not severe. She is noted to have left-sided hemiparesthesias. This also does not seem changed from yesterday. The code stroke hadoop administrator and nurse supervisor filtration did contact the patient's daughter and son. They have made the patient a DO NOT RESUSCITATE CODE STATUS at this time. As noted she will be transferred up to the intensive care unit this morning as soon as a bed is available. The patient is now resting comfortably. We will continue close neurological follow- up of this patient in the intensive care unit. Her overall prognosis at this time remains very guarded. Objective - Vital Signs Vital signs: Vital Signs Temp 98.7 F 07/20/17 18:00 Pulse 95 07/20/17 21:50 Resp 18 07/20/17 18:00 BP 200/75 07/20/17 21:50 Pulse Ox 98 07/20/17 18:00 Intake & Output 07/20/17 07/20/17 07/21/17 06:59 18:59 06:59 Intake Total 1550 1240 250 Output Total 798 955 400 Balance 752 285 -150 Weight 67.9 kg 67.9 kg Intake: IV 800 Sodium Chloride 0.9% 1, 800 000 ml @ 100 mls/hr IV . Q10H [facility] Rx#:[id number] Intake, IV Titration 750 1000 Amount Dextrose 5%-0.45% NaCl 1, 250 800 000 ml @ 100 mls/hr IV . Q10H [facility] Rx#:[id number] Dextrose 5%-0.45% NaCl 500 200 500 ml @ 999 mls/hr IV . Q31M [facility] Rx#:[id number] Oral 240 250 Output: Urine 798 955 400 Other: Voiding Method Indwelling Catheter Indwelling Catheter - Exam Physical examination: PHYSICAL EXAMINATION: Patient is resting comfortably in bed. VITAL SIGNS: Blood pressure is [177/65]. Heart rate is [88]. Respiration is [18] . Temperature is [98.7]. HEENT: Head is atraumatic, neck is supple, there were no carotid bruits. CHEST: Lungs are clear to auscultation and percussion. CARDIAC: S1, S2 normal rate and rhythm. There is no murmur. ABDOMEN: Soft and nontender. Bowel sounds are present. EXTREMITIES: There is no pedal edema. Peripheral pulses are present. Neurological examination: Patient's neurological examination is unchanged from yesterday. She has evidence of a left facial droop with upper motor neuron findings. She has a left pronator drift and left-sided hemiparesthesias. Her speech remains dysphasic. Her speech is slowly improving. Patient's speech appears to be stable at this time. Apparently earlier this morning she had very severe garbled speech and hard to comprehend. She now seems to be back to her baseline as she was yesterday evening. Her aphasia seems to be back seeing and waning. This will be closely monitored. - Labs CBC & Chem 7: 07/24/17 10:09 07/24/17 10:09 Labs: Abnormal Lab Results - Last 24 Hours (Table) 07/20/17 07/20/17 Range/Units 04:08 04:08 RBC 3.10 L (3.80-5.40) m/uL Hgb 9.3 L D (11.4-16.0) gm/dL Hct 29.5 L (34.0-46.0) % Sodium 132 L (137-145) mmol/L Carbon Dioxide 18 L (22-30) mmol/L BUN 18 H (7-17) mg/dL Glucose 170 H (74-99) mg/dL Magnesium 1.5 L (1.6-2.3) mg/dL Microbiology - Last 24 Hours (Table) 07/19/17 08:15 Urine Culture - Final Urine,Catheterized 07/17/17 01:20 Blood Culture - Preliminary Blood No Growth after 72 hours Assessment and Plan (1) Acute right arterial ischemic stroke, MCA (middle cerebral artery) Status: Acute Code(s): I63.511 - CEREB INFRC D/T UNSP OCCLS OR STENOS OF RIGHT MID CEREB ART (2) Multiple falls Status: Acute Code(s): R29.6 - REPEATED FALLS (3) Debility Status: Acute Code(s): R53.81 - OTHER MALAISE (4) Community acquired pneumonia Status: Acute Code(s): J18.9 - PNEUMONIA, UNSPECIFIED ORGANISM Plan: This patient is a 87-year-old right-handed white female who initially was admitted to [facility] with symptoms of multiple falls and generalized weakness. Patient was brought into the emergency room and underwent an initial computed tomography scan of the brain which was reported negative for any acute stroke or hemorrhage. Patient was seen none neurology consultation and clearly had evidence of left-sided hemiparesis. She has a left facial droop as well as evidence of an expressive aphasia. She was recommended to undergo MRI of the brain which was completed yesterday. MRI revealed multiple areas of acute infarction involving the right hemisphere. There was no evidence of hemorrhagic transformation. We have recommended cardiology to be consulted for further evaluation for ALICIA procedure for this patient. The patient was seen yesterday evening on neurology follow-up. At that time she showed slight improvement with her speech which was less dysphasic. This morning at about 3 AM the patient showed worsening signs of left-sided weakness and worsening aphasia. A code stroke was initiated. Dr. Alexa Powers was notified by pager of her sudden decline and change. Patient was seen at 4:30 AM on the 5 E. medical floor. She once again seem to be back to her baseline. She did not demonstrate evidence of severe aphasia at this time. Her left-sided hemiparesis appears to be unchanged from previous. The patient was sent for a repeat computed tomography scan of the brain given the changes in her neurological status. CAT scan was reported by the radiologist today are showing new areas of right frontal and parietal lobe infarction. There is also area of infarction involving the right cerebellar hemisphere. These findings were noted on her MRI of the brain that was done yesterday. Given her current change in her neurological status we have recommended that she be transferred to the intensive care unit for close monitoring. The nursing staff did contact the patient's daughter and son. They have now made the patient a DO NOT RESUSCITATE status. We will transfer this patient to the intensive care unit once a bed becomes available. We will start her on IV Decadron 10 mg IV push followed by maintenance dose of IV Decadron 6 mg every 4 hours. We will plan to get a repeat computed tomography scan of the brain tomorrow as a short-term follow-up. This CAT scan was repeated and fails to reveal any new areas of stroke. We are still awaiting cardiology's input regarding possible ALICIA procedure for this patient. The patient is able to answer questions appropriately this morning. We will need to put her on neuro checks with close monitoring on the medical floor. Patient is being considered for inpatient rehab. We will await further recommendations from PT/OT for the patient. We will continue close neurological follow-up of this patient during this admission. Patient is being considered for inpatient rehab. We will contact the patient's daughter by phone later this morning to update her on her overall neurological status. Her overall prognosis at this time remains very guarded.
--- NOTE | 2017-07-25 19:22 | P.PN ---
Subjective This patient is a 87-year-old right-handed white female who was initially admitted to [facility] on 07/17/2017 with symptoms of multiple falls and generalized weakness. On her initial neurological examination the patient was found to have evidence of significant left-sided weakness. She underwent a MRI of the brain yesterday which did reveal evidence of multiple areas of acute infarction involving the right hemisphere of the brain. Given the multiple areas of acute infarction it was felt she likely had a cardioembolic stroke. Cardiology was consulted yesterday for evaluation of possible AILCIA procedure for this patient to further evaluate for PFO and/or atrial thrombus. The patient was seen yesterday evening on 07/18/2017 and appeared to show signs of some improvement in her speech. Early this morning at about 3 AM the nurse taking care of the patient noticed that she was having much more difficulty with her speech. She was much more dysarthric and dysphasic. Her left-sided weakness also significantly worsen. A code stroke was initiated and Dr. Alexa Powers was contacted by pager. We recommended a stat computed tomography scan of the brain to be done. This was completed this morning and the results indicate evidence of her large right frontal and parietal lobe stroke. He was also area involving the right frontal lobe and right cerebellar hemisphere. These are the same areas that was noted on the MRI of the brain that was done yesterday. Radiologist did not see any evidence of hemorrhagic transformation. We have recommended that the patient should be transferred into the intensive care unit for close supervision. We will start her on IV Decadron 10 mg IV push followed with a maintenance dose of 6 mg every 4 hours. The patient was reexamined this morning at 4:30 AM at her bedside. She seems to be resting comfortably. Her speech once again shows improvement from earlier this morning. She at this time seems to be near the level of function as she was last night. Her speech is dysarthric but not severe. She is noted to have left-sided hemiparesthesias. This also does not seem changed from yesterday. The code stroke windchill administrator and nurse prep room supervisor did contact the patient's daughter and son. They have made the patient a DO NOT RESUSCITATE CODE STATUS at this time. As noted she will be transferred up to the intensive care unit yesterday morning as soon as a bed is available. The patient is now resting comfortably. We will continue close neurological follow- up of this patient in the intensive care unit. She is showing stabilization and is more awake and alert today. Speech is slightly dysarthric. Left-sided hemiparesis is unchanged. Her overall prognosis at this time remains very guarded. Objective - Vital Signs Vital signs: Vital Signs Temp 96.5 F L 07/21/17 15:00 Pulse 78 07/21/17 15:00 Resp 20 07/21/17 15:00 BP 155/64 07/21/17 15:00 Pulse Ox 96 07/21/17 15:00 Intake & Output 07/20/17 07/21/17 07/21/17 18:59 06:59 18:59 Intake Total 1240 450 644 Output Total 955 1400 Balance 285 -950 644 Weight 67.9 kg Intake: Intake, IV Titration 1000 Amount Dextrose 5%-0.45% NaCl 1, 800 000 ml @ 100 mls/hr IV . Q10H [facility] Rx#:[id number] Dextrose 5%-0.45% NaCl 200 500 ml @ 999 mls/hr IV . Q31M [facility] Rx#:[id number] Oral 240 450 644 Output: Urine 955 1400 Other: Voiding Method Indwelling Catheter Indwelling Catheter # Voids 675 # Bowel Movements 0 - Exam Physical examination: PHYSICAL EXAMINATION: Patient is resting comfortably in bed. VITAL SIGNS: Blood pressure is [155/64]. Heart rate is [78]. Respiration is [20] . Temperature is [96.5]. HEENT: Head is atraumatic, neck is supple, there were no carotid bruits. CHEST: Lungs are clear to auscultation and percussion. CARDIAC: S1, S2 normal rate and rhythm. There is no murmur. ABDOMEN: Soft and nontender. Bowel sounds are present. EXTREMITIES: There is no pedal edema. Peripheral pulses are present. Neurological examination: Patient's neurological examination is unchanged from yesterday. She has evidence of a left facial droop with upper motor neuron findings. She has a left pronator drift and left-sided hemiparesthesias. Her speech remains dysphasic. Her speech is slowly improving. Patient's speech appears to be stable at this time. Apparently earlier this morning she had very severe garbled speech and hard to comprehend. She now seems to be back to her baseline as she was yesterday evening. Her aphasia seems to be back seeing and waning. This will be closely monitored. - Labs CBC & Chem 7: 07/24/17 10:09 07/24/17 10:09 Labs: Abnormal Lab Results - Last 24 Hours (Table) 07/21/17 07/21/17 Range/Units 09:09 09:09 WBC 16.2 H (3.8-10.6) k/uL Neutrophils # 9.3 H (1.3-7.7) k/uL Lymphocytes # 6.3 H (1.0-4.8) k/uL Sodium 136 L (137-145) mmol/L Carbon Dioxide 21 L (22-30) mmol/L BUN 20 H (7-17) mg/dL Glucose 204 H (74-99) mg/dL Microbiology - Last 24 Hours (Table) 07/17/17 01:20 Blood Culture - Preliminary Blood No Growth after 96 hours 07/19/17 08:15 Urine Culture - Final Urine,Catheterized Assessment and Plan (1) Acute right arterial ischemic stroke, MCA (middle cerebral artery) Status: Acute Code(s): I63.511 - CEREB INFRC D/T UNSP OCCLS OR STENOS OF RIGHT MID CEREB ART (2) Multiple falls Status: Acute Code(s): R29.6 - REPEATED FALLS (3) Debility Status: Acute Code(s): R53.81 - OTHER MALAISE (4) Community acquired pneumonia Status: Acute Code(s): J18.9 - PNEUMONIA, UNSPECIFIED ORGANISM Plan: This patient is a 87-year-old right-handed white female who initially was admitted to [facility] with symptoms of multiple falls and generalized weakness. Patient was brought into the emergency room and underwent an initial computed tomography scan of the brain which was reported negative for any acute stroke or hemorrhage. Patient was seen none neurology consultation and clearly had evidence of left-sided hemiparesis. She has a left facial droop as well as evidence of an expressive aphasia. She was recommended to undergo MRI of the brain which was completed yesterday. MRI revealed multiple areas of acute infarction involving the right hemisphere. There was no evidence of hemorrhagic transformation. We have recommended cardiology to be consulted for further evaluation for ALICIA procedure for this patient. The patient was seen yesterday evening on neurology follow-up. At that time she showed slight improvement with her speech which was less dysphasic. This morning at about 3 AM the patient showed worsening signs of left-sided weakness and worsening aphasia. A code stroke was initiated. Dr. Alexa Powers was notified by pager of her sudden decline and change. Patient was seen at 4:30 AM on the 5 E. medical floor. She once again seem to be back to her baseline. She did not demonstrate evidence of severe aphasia at this time. Her left-sided hemiparesis appears to be unchanged from previous. The patient was sent for a repeat computed tomography scan of the brain given the changes in her neurological status. CAT scan was reported by the radiologist today are showing new areas of right frontal and parietal lobe infarction. There is also area of infarction involving the right cerebellar hemisphere. These findings were noted on her MRI of the brain that was done yesterday. Given her current change in her neurological status we have recommended that she be transferred to the intensive care unit for close monitoring. The nursing staff did contact the patient's daughter and son. They have now made the patient a DO NOT RESUSCITATE status. We will transfer this patient to the intensive care unit once a bed becomes available. We will start her on IV Decadron 10 mg IV push followed by maintenance dose of IV Decadron 6 mg every 4 hours. This will be gradually tapered over the next few days. We will plan to get a repeat computed tomography scan of the brain tomorrow as a short-term follow-up. This CAT scan was repeated and fails to reveal any new areas of stroke. We are still awaiting cardiology's input regarding possible ALICIA procedure for this patient. Apparently cardiology feels she does not require ALICIA at this time given her age. The patient is able to answer questions appropriately this morning. We will need to put her on neuro checks with close monitoring on the medical floor. Patient is being considered for inpatient rehab. We will await further recommendations from PT/OT for the patient. We will continue close neurological follow-up of this patient during this admission. Patient is being considered for inpatient rehab. We will contact the patient's daughter by phone later this morning to update her on her overall neurological status. Her overall prognosis at this time remains very guarded.
--- NOTE | 2017-07-25 19:26 | P.PN ---
Subjective This patient is a 87-year-old right-handed white female who was initially admitted to [facility] on 07/17/2017 with symptoms of multiple falls and generalized weakness. On her initial neurological examination the patient was found to have evidence of significant left-sided weakness. She underwent a MRI of the brain yesterday which did reveal evidence of multiple areas of acute infarction involving the right hemisphere of the brain. Given the multiple areas of acute infarction it was felt she likely had a cardioembolic stroke. Cardiology was consulted yesterday for evaluation of possible ALICIA procedure for this patient to further evaluate for PFO and/or atrial thrombus. The patient was seen yesterday evening on 07/18/2017 and appeared to show signs of some improvement in her speech. Early this morning at about 3 AM the nurse taking care of the patient noticed that she was having much more difficulty with her speech. She was much more dysarthric and dysphasic. Her left-sided weakness also significantly worsen. A code stroke was initiated and Dr. Azul Powers was contacted by pager. We recommended a stat computed tomography scan of the brain to be done. This was completed this morning and the results indicate evidence of her large right frontal and parietal lobe stroke. He was also area involving the right frontal lobe and right cerebellar hemisphere. These are the same areas that was noted on the MRI of the brain that was done yesterday. Radiologist did not see any evidence of hemorrhagic transformation. We have recommended that the patient should be transferred into the intensive care unit for close supervision. We will start her on IV Decadron 10 mg IV push followed with a maintenance dose of 6 mg every 4 hours. The patient was reexamined this morning at 4:30 AM at her bedside. She seems to be resting comfortably. Her speech once again shows improvement from earlier this morning. She at this time seems to be near the level of function as she was last night. Her speech is dysarthric but not severe. She is noted to have left-sided hemiparesthesias. This also does not seem changed from yesterday. The code stroke education administrator and nurse cap and hat production supervisor did contact the patient's daughter and son. They have made the patient a DO NOT RESUSCITATE CODE STATUS at this time. As noted she will be transferred up to the intensive care unit this morning as soon as a bed is available. The patient is now resting comfortably. She continues to show improvement overall following her recent stroke. Her speech deficit has stabilized. Patient's prognosis remains fair. She has shown improvement with her recent stroke in terms of cognitive function. We will continue close neurological follow-up with this patient. We are still waiting to see if ALICIA procedure is to be done for this patient by cardiology. We will have nursing staff contact cardiology specifically with this question. Patient is showing improvement and most likely will be transferred out of ICU in the next 24 hours. She is showing stabilization in terms of her recent stroke. We will continue close neurological follow-up of this patient on the medical floor. Her overall prognosis at this time remains very guarded. Objective - Vital Signs Vital signs: Vital Signs Temp 97.4 F L 07/24/17 16:00 Pulse 65 07/24/17 16:00 Resp 16 07/24/17 16:00 BP 158/65 07/24/17 16:00 Pulse Ox 95 07/24/17 20:10 Intake & Output 07/24/17 07/24/17 07/25/17 06:59 18:59 06:59 Intake Total 100 450 Output Total 900 Balance 100 -450 Weight 67.9 kg Intake: Intake, IV Titration 150 Amount Piperacillin-Tazobactam 3 50 .375 gm In Dextrose/Water 1 50ml.bag @ 12.5 mls/hr IVPB Q8H MILDRED Rx#: [id number] Sodium Chloride 0.45% 1, 100 000 ml @ 20 mls/hr IV . Q24H MILDRED Rx#:[id number] Oral 100 300 Output: Urine 900 Other: Voiding Method Bedside Commode Bedside Commode Diaper # Voids 1 6 # Bowel Movements 2 - Exam Physical examination: PHYSICAL EXAMINATION: Patient is resting comfortably in bed. VITAL SIGNS: Blood pressure [146/70]. Heart rate is [64]. Respiration is [16]. Temperature is [97.8]. HEENT: Head is atraumatic, neck is supple, there were no carotid bruits. CHEST: Lungs are clear to auscultation and percussion. CARDIAC: S1, S2 normal rate and rhythm. There is no murmur. ABDOMEN: Soft and nontender. Bowel sounds are present. EXTREMITIES: There is no pedal edema. Peripheral pulses are present. Neurological examination: Patient's neurological examination is unchanged from yesterday. She has evidence of a left facial droop with upper motor neuron findings. She has a left pronator drift and left-sided hemiparesthesias. Her speech remains dysphasic. Her speech is slowly improving. Patient's speech appears to be stable at this time. Apparently earlier this morning she had very severe garbled speech and hard to comprehend. She now seems to be back to her baseline as she was yesterday evening. Her aphasia seems to be back waxing and waning. This will be closely monitored. - Labs CBC & Chem 7: 07/24/17 10:09 07/24/17 10:09 Labs: Abnormal Lab Results - Last 24 Hours (Table) 07/24/17 07/24/17 07/24/17 Range/Units 08:09 10:09 10:09 WBC 27.1 H* (3.8-10.6) k/uL Plt Count 613 H (150-450) k/uL Neutrophils # 11.5 H (1.3-7.7) k/uL Lymphocytes # 14.5 H (1.0-4.8) k/uL BUN 31 H (7-17) mg/dL Glucose 113 H (74-99) mg/dL POC Glucose (mg/dL) 136 H (75-99) mg/dL 07/24/17 07/24/17 Range/Units 11:34 16:44 WBC (3.8-10.6) k/uL Plt Count (150-450) k/uL Neutrophils # (1.3-7.7) k/uL Lymphocytes # (1.0-4.8) k/uL BUN (7-17) mg/dL Glucose (74-99) mg/dL POC Glucose (mg/dL) 113 H 120 H (75-99) mg/dL Assessment and Plan (1) Acute right arterial ischemic stroke, MCA (middle cerebral artery) Status: Acute Code(s): I63.511 - CEREB INFRC D/T UNSP OCCLS OR STENOS OF RIGHT MID CEREB ART (2) Multiple falls Status: Acute Code(s): R29.6 - REPEATED FALLS (3) Debility Status: Acute Code(s): R53.81 - OTHER MALAISE (4) Community acquired pneumonia Status: Acute Code(s): J18.9 - PNEUMONIA, UNSPECIFIED ORGANISM Plan: This patient is a 87-year-old right-handed white female who initially was admitted to [facility] with symptoms of multiple falls and generalized weakness. Patient was brought into the emergency room and underwent an initial computed tomography scan of the brain which was reported negative for any acute stroke or hemorrhage. Patient was seen none neurology consultation and clearly had evidence of left-sided hemiparesis. She has a left facial droop as well as evidence of an expressive aphasia. She was recommended to undergo MRI of the brain which was completed yesterday. MRI revealed multiple areas of acute infarction involving the right hemisphere. There was no evidence of hemorrhagic transformation. We have recommended cardiology to be consulted for further evaluation for ALICIA procedure for this patient. The patient was seen yesterday evening on neurology follow-up. At that time she showed slight improvement with her speech which was less dysphasic. This morning at about 3 AM the patient showed worsening signs of left-sided weakness and worsening aphasia. A code stroke was initiated. Dr. Alexa Powers was notified by pager of her sudden decline and change. Patient was seen at 4:30 AM on the 5 E. medical floor. She once again seem to be back to her baseline. She did not demonstrate evidence of severe aphasia at this time. Her left-sided hemiparesis appears to be unchanged from previous. The patient was sent for a repeat computed tomography scan of the brain given the changes in her neurological status. CAT scan was reported by the radiologist today are showing new areas of right frontal and parietal lobe infarction. There is also area of infarction involving the right cerebellar hemisphere. These findings were noted on her MRI of the brain that was done yesterday. Given her current change in her neurological status we have recommended that she be transferred to the intensive care unit for close monitoring. The nursing staff did contact the patient's daughter and son. They have now made the patient a DO NOT RESUSCITATE status. We will transfer this patient to the intensive care unit once a bed becomes available. We will start her on IV Decadron 10 mg IV push followed by maintenance dose of IV Decadron 6 mg every 4 hours. This will be gradually tapered over the next few days. We will plan to get a repeat computed tomography scan of the brain tomorrow as a short-term follow-up. This CAT scan was repeated and fails to reveal any new areas of stroke. We are still awaiting cardiology's input regarding possible ALICIA procedure for this patient. Apparently cardiology feels she does not require ALICIA at this time given her age. The patient is able to answer questions appropriately this morning. We will need to put her on neuro checks with close monitoring on the medical floor. Patient is being considered for inpatient rehab. We will await further recommendations from PT/OT for the patient. We will continue close neurological follow-up of this patient during this admission. Patient is being considered for inpatient rehab. Patient will be weaned off of her IV Decadron over the next 2 days. She is being considered for transfer to [facility] when bed becomes available. Her overall prognosis at this time remains very guarded.
--- NOTE | 2017-07-25 19:29 | P.PN ---
Subjective Dr. Alexa Powers was notified of change in this patient's mental status at 3:30 AM on 07/19/2017. Patient had symptoms of worsening right hemispheric stroke. This patient is a 87-year-old right-handed white female who was initially admitted to [facility] on 07/17/2017 with symptoms of multiple falls and generalized weakness. On her initial neurological examination the patient was found to have evidence of significant left-sided weakness. She underwent a MRI of the brain yesterday which did reveal evidence of multiple areas of acute infarction involving the right hemisphere of the brain. Given the multiple areas of acute infarction it was felt she likely had a cardioembolic stroke. Cardiology was consulted yesterday for evaluation of possible ALICIA procedure for this patient to further evaluate for PFO and/or atrial thrombus. The patient was seen yesterday evening on 07/18/2017 and appeared to show signs of some improvement in her speech. Early this morning at about 3 AM the nurse taking care of the patient noticed that she was having much more difficulty with her speech. She was much more dysarthric and dysphasic. Her left-sided weakness also significantly worsen. A code stroke was initiated and Dr. Alexa Powers was contacted by pager. We recommended a stat computed tomography scan of the brain to be done. This was completed this morning and the results indicate evidence of her large right frontal and parietal lobe stroke. He was also area involving the right frontal lobe and right cerebellar hemisphere. These are the same areas that was noted on the MRI of the brain that was done yesterday. Radiologist did not see any evidence of hemorrhagic transformation. We have recommended that the patient should be transferred into the intensive care unit for close supervision. We will start her on IV Decadron 10 mg IV push followed with a maintenance dose of 6 mg every 4 hours. The patient was reexamined this morning at 4:30 AM at her bedside. She seems to be resting comfortably. Her speech once again shows improvement from earlier this morning. She at this time seems to be near the level of function as she was last night. Her speech is dysarthric but not severe. She is noted to have left-sided hemiparesthesias. This also does not seem changed from yesterday. The code stroke windows systems administrator and nurse supervisor assembly room did contact the patient's daughter and son. They have made the patient a DO NOT RESUSCITATE CODE STATUS at this time. As noted she will be transferred up to the intensive care unit this morning as soon as a bed is available. The patient is now resting comfortably. She continues to show improvement overall following her recent stroke. Her speech deficit has stabilized. Patient's prognosis remains fair. She has shown improvement with her recent stroke in terms of cognitive function. We will continue close neurological follow-up with this patient. We are still waiting to see if ALICIA procedure is to be done for this patient by cardiology. We will have nursing staff contact cardiology specifically with this question. Apparently cardiology wants to hold off on ALICIA procedure at this time. Patient is being weaned off of her IV Decadron over the next 24 hours. She is awaiting transferred to ECF possibly tomorrow. We will continue close neurological follow-up of this patient on the medical floor. Her overall prognosis at this time remains very guarded. Objective - Vital Signs Vital signs: Vital Signs Temp 97.4 F L 07/25/17 15:00 Pulse 72 07/25/17 15:00 Resp 18 07/25/17 15:00 BP 158/72 07/25/17 15:00 Pulse Ox 97 07/25/17 15:00 Intake & Output 07/25/17 07/25/17 07/26/17 06:59 18:59 06:59 Intake Total 300 Balance 300 Intake: Oral 300 Other: Voiding Method Bedside Commode Bedpan Diaper # Voids 4 2 # Bowel Movements 2 1 - Exam Physical examination: PHYSICAL EXAMINATION: Patient is resting comfortably in bed. VITAL SIGNS: Blood pressure [158/72]. Heart rate is [72]. Respiration is [18]. Temperature is [97.4]. HEENT: Head is atraumatic, neck is supple, there were no carotid bruits. CHEST: Lungs are clear to auscultation and percussion. CARDIAC: S1, S2 normal rate and rhythm. There is no murmur. ABDOMEN: Soft and nontender. Bowel sounds are present. EXTREMITIES: There is no pedal edema. Peripheral pulses are present. Neurological examination: Patient's neurological examination is unchanged from yesterday. She has evidence of a left facial droop with upper motor neuron findings. She has a left pronator drift and left-sided hemiparesthesias. Her speech remains dysphasic. Her speech is slowly improving. Patient's speech appears to be stable at this time. Apparently earlier this morning she had very severe garbled speech and hard to comprehend. She now seems to be back to her baseline as she was yesterday evening. Her aphasia seems to be back waxing and waning. This will be closely monitored. - Labs CBC & Chem 7: 07/24/17 10:09 07/24/17 10:09 Labs: Abnormal Lab Results - Last 24 Hours (Table) 07/24/17 07/25/17 Range/Units 20:41 16:58 POC Glucose (mg/dL) 168 H 115 H (75-99) mg/dL Assessment and Plan (1) Acute right arterial ischemic stroke, MCA (middle cerebral artery) Status: Acute Code(s): I63.511 - CEREB INFRC D/T UNSP OCCLS OR STENOS OF RIGHT MID CEREB ART (2) Multiple falls Status: Acute Code(s): R29.6 - REPEATED FALLS (3) Debility Status: Acute Code(s): R53.81 - OTHER MALAISE (4) Community acquired pneumonia Status: Acute Code(s): J18.9 - PNEUMONIA, UNSPECIFIED ORGANISM Plan: This patient is a 87-year-old right-handed white female who initially was admitted to [facility] with symptoms of multiple falls and generalized weakness. Patient was brought into the emergency room and underwent an initial computed tomography scan of the brain which was reported negative for any acute stroke or hemorrhage. Patient was seen none neurology consultation and clearly had evidence of left-sided hemiparesis. She has a left facial droop as well as evidence of an expressive aphasia. She was recommended to undergo MRI of the brain which was completed yesterday. MRI revealed multiple areas of acute infarction involving the right hemisphere. There was no evidence of hemorrhagic transformation. We have recommended cardiology to be consulted for further evaluation for ALICIA procedure for this patient. The patient was seen yesterday evening on neurology follow-up. At that time she showed slight improvement with her speech which was less dysphasic. This morning at about 3 AM the patient showed worsening signs of left-sided weakness and worsening aphasia. A code stroke was initiated. Dr. Alexa Powers was notified by pager of her sudden decline and change. Patient was seen at 4:30 AM on the 5 E. medical floor. She once again seem to be back to her baseline. She did not demonstrate evidence of severe aphasia at this time. Her left-sided hemiparesis appears to be unchanged from previous. The patient was sent for a repeat computed tomography scan of the brain given the changes in her neurological status. CAT scan was reported by the radiologist today are showing new areas of right frontal and parietal lobe infarction. There is also area of infarction involving the right cerebellar hemisphere. These findings were noted on her MRI of the brain that was done yesterday. Given her current change in her neurological status we have recommended that she be transferred to the intensive care unit for close monitoring. The nursing staff did contact the patient's daughter and son. They have now made the patient a DO NOT RESUSCITATE status. We will transfer this patient to the intensive care unit once a bed becomes available. We will start her on IV Decadron 10 mg IV push followed by maintenance dose of IV Decadron 6 mg every 4 hours. This will be gradually tapered over the next few days. We will plan to get a repeat computed tomography scan of the brain tomorrow as a short-term follow-up. This CAT scan was repeated and fails to reveal any new areas of stroke. We are still awaiting cardiology's input regarding possible ALICIA procedure for this patient. Apparently cardiology feels she does not require ALICIA at this time given her age. The patient is able to answer questions appropriately this morning. We will need to put her on neuro checks with close monitoring on the medical floor. Patient is being considered for inpatient rehab. We will await further recommendations from PT/OT for the patient. We will continue close neurological follow-up of this patient during this admission. Patient is being considered for inpatient rehab. Patient will be weaned off of her IV Decadron over the next 2 days. She is being considered for transfer to ECF when bed becomes available. Hopefully she'll be able to be transferred tomorrow to ECF as she is neurologically stable. She may follow-up in the outpatient neurology clinic in 3-4 weeks. Her overall prognosis at this time remains very guarded.
[2017-07-25 20:50] LABS: Glucose,Whole Blood 131 mg/dL (75-99)
[2017-07-26] MEDS: PIPERACILLIN-TAZOBACTAM 3.375 GM in DEXTROSE/WATER 1 50ML.BAG IVPB SCH ×2 (04:46→12:15)
[2017-07-26] MEDS: DEXAMETHASONE SOD PHOSPHATE 4 MG/ML 1 ML VIAL IV SCH (07:02)
[2017-07-26] MEDS: HYDROcodone/APAP 5-325MG 1 EACH TAB PO PRN ×2 (07:09→14:40)
[2017-07-26 07:22] LABS: Glucose,Whole Blood 93 mg/dL (75-99)
[2017-07-26] MEDS ORDERED: PANTOPRAZOLE 40 MG TABLET PO SCH (07:30)
[2017-07-26] MEDS: INSULIN LISPRO (humaLOG) 300 UNIT/3 ML VIAL SQ SCH ×2 (07:34→12:15)
[2017-07-26 08:09] VITALS: PULSE 78; TEMP 97.4
[2017-07-26] MEDS: LISINOPRIL-HCTZ 20-12.5 MG 1 EACH TAB PO SCH (08:13)
[2017-07-26] MEDS: ATORVASTATIN 40 MG TAB PO SCH (08:13)
[2017-07-26] MEDS: SODIUM CHLORIDE 0.45% 1,000 ML IV SCH (08:13)
[2017-07-26] MEDS: METOPROLOL TARTRATE 25 MG TAB PO SCH (08:13)
[2017-07-26] MEDS: ENOXAPARIN 40 MG/0.4 ML SYRINGE SQ SCH (08:13)
[2017-07-26] MEDS: ASPIRIN 81 MG PO SCH (08:13)
[2017-07-26] MEDS: GABAPENTIN 100 MG CAP PO SCH (08:13)
[2017-07-26] MEDS ORDERED: amLODIPine 10 MG TAB PO STA (08:18)
[2017-07-26 12:01] VITALS: BP 152/76
[2017-07-26] MEDS: MULTIVITAMINS, THERA 1 EACH TAB PO SCH (12:15)
[2017-07-26] MEDS: THIAMINE 100 MG TAB PO SCH (12:15)
[2017-07-26] MEDS: FOLIC ACID 1 MG TAB PO SCH (12:15)
[2017-07-26 12:25] LABS: Glucose,Whole Blood 93 mg/dL (75-99)
--- NOTE | 2017-07-26 12:54 | P.PN ---
Progress Note - Text Please see full dictation by distress practitioner Discussed with Dr. Johns Patient may be quite anxious as night. Blood pressure is elevated more so in the evenings and night and better through the day Yesterday amlodipine was increased to 10 mg by mouth daily. She is already on SANTOS inhibitor as an diuretics at a low dose beta galilea I would not change her medications at this time. Follow-up with Dr. Johns as an outpatient and if her blood pressure is consistently elevated then consider irbesartan 300 mg by mouth daily along with the diuretic instead of the combination of santos inhibitors and the diuretic
--- NOTE | 2017-07-26 14:00 | P.PN ---
Subjective This is a pleasant 87-year-old female. She has past medical history significant for hypertension only. She denies any history of CAD or heart failure. She was initially admitted to the hospital for pneumonia and subsequently had a right hemisperic infarct. We have are seeing this patient today in follow up from previous consultation for uncontrolled hypertension. She denies chest pain, shortness of breath, dizziness, palpitations or nausea. She is currently being given zestoretic 20/12.5 daily, norvasc 10 mg daily and lopressor 25 mg BID. She denies chest pain, shortness of breath, dizziness, palpitations or headache at this time. She states she does get anxious at night and hasn't been sleeping well. Objective - Vital Signs Vital signs: Vital Signs Temp 97.4 F L 07/26/17 07:00 Pulse 78 07/26/17 07:00 Resp 20 07/26/17 07:00 BP 152/76 07/26/17 12:01 Pulse Ox 98 07/26/17 07:00 Intake & Output 07/25/17 07/26/17 07/26/17 18:59 06:59 18:59 Intake Total 450 120 Balance 450 120 Intake: Oral 450 120 Other: Voiding Method Bedpan Bedpan Bedpan # Voids 2 1 # Bowel Movements 1 1 - Exam GENERAL: Well-appearing, well-nourished and in no acute distress. NECK: Supple without JVD or thyromegaly. LUNGS: Breath sounds clear to auscultation bilaterally. Respiration equal and unlabored. No wheezes, rales or rhonchi. HEART: Regular rate and rhythm without murmurs, rubs or gallops. S1 and S2 heard. - Labs CBC & Chem 7: 07/24/17 10:09 07/24/17 10:09 Labs: Abnormal Lab Results - Last 24 Hours (Table) 07/25/17 07/25/17 Range/Units 16:58 20:42 POC Glucose (mg/dL) 115 H 131 H (75-99) mg/dL Assessment and Plan Plan: ASSESSMENT 1. Essential hypertension, uncontrolled 2. Acute CVA 3. Hypokalemia, resolved 4. Leukocytosis PLAN Continue with medications as previously prescribed. This was discussed with Dr. Johns. It may be that she is getting rather anxious at night and blood pressure is rising. Through the day she is fairly controlled. If blood pressure remains elevated at night it was discussed with Dr. Johns he can start irbesartan 300 mg daily along with the diuretic instead of combination of jacque inhibitor and diuretic. Nurse Practitioner note has been reviewed, I agree with a documented findings and plan of care. Patient was seen and examined.
--- NOTE | 2017-07-26 14:16 | P.DS ---
Providers Date of admission: 07/17/17 02:21 Attending physician: Emiliano Johns Consults: 07/17/17 13:16 Consult Physician Routine Consulting Provider: Sathya Powers Consult Reason/Comments: weakness/facial droop Do you want consulting provider notified?: Yes 07/19/17 07:00 Consult Physician Urgent Consulting Provider: Talib Kilpatrick Consult Reason/Comments: Patient with right hemispheric embolic stroke, meed ALICIA. Do you want consulting provider notified?: Yes 07/19/17 07:45 Consult Physician Stat Consulting Provider: Tad Barclay Consult Reason/Comments: ICU Do you want consulting provider notified?: Already Contacted Primary care physician: Emiliano Johns - Discharge Diagnosis(es) (1) Community acquired pneumonia Current Visit: Yes Status: Acute (2) Dehydration Current Visit: Yes Status: Acute (3) Weakness Current Visit: Yes Status: Acute (4) Diarrhea Current Visit: No Status: Acute Hospital Course: This is discharge summary an 87-year-old white female essentially admitted for pneumonia and sepsis. The patient ended up having a CVA during this hospitalization after being appropriately treated. Multiple consultants including pulmonary, neurology and cardiology were consulted. It was felt that she should entertain rehabilitation and she will be transferred to [facility] once that is available.She is discharged in cardiology and neurolog. Patient Condition at Discharge: Fair Plan - Discharge Summary New Discharge Prescriptions: New Acetaminophen Tab [Tylenol] 325 mg PO Q6HR PRN #0 tab PRN Reason: Fever And/ Or Pain amLODIPine [Norvasc] 10 mg PO DAILY tab Atorvastatin [Lipitor] 40 mg PO DAILY tab Enoxaparin [Lovenox] 40 mg SQ DAILY syr Folic Acid 1 mg PO DAILY@1200 tab HYDROcodone/APAP 5-325MG [[place] 5-325] 1 each PO Q6HR PRN #120 tab PRN Reason: Pain INSULIN LISPRO (humaLOG) [humaLOG (formulary)] 0 unit SQ ACHS vial Ipratropium-Albuterol Nebulize [Duoneb 0.5 mg-3 mg/3 ml Soln] 3 ml INHALATION RT-Q4H PRN neb PRN Reason: shortness of breath Metoprolol Tartrate [Lopressor] 25 mg PO BID tab Pantoprazole [Protonix] 40 mg PO AC-BRKFST tab Thiamine [Vitamin B-1] 100 mg PO DAILY@1200 tab Continue Lisinopril-Hctz 20-12.5 mg [Zestoretic 20-12.5] 1 tab PO BID Omeprazole 20 mg PO DAILY Naproxen Sodium [Aleve] 220 mg PO Q12HR PRN PRN Reason: Pain Gabapentin [Neurontin] 100 mg PO TID Aspirin [Adult Low Dose Aspirin EC] 81 mg PO DAILY Discharge Medication List Aspirin [Adult Low Dose Aspirin EC] 81 mg PO DAILY 05/23/17 [History] Gabapentin [Neurontin] 100 mg PO TID 05/23/17 [History] Lisinopril-Hctz 20-12.5 mg [Zestoretic 20-12.5] 1 tab PO BID 05/23/17 [History] Naproxen Sodium [Aleve] 220 mg PO Q12HR PRN 05/23/17 [History] Omeprazole 20 mg PO DAILY 05/23/17 [History] Acetaminophen Tab [Tylenol] 325 mg PO Q6HR PRN #0 tab 07/26/17 [Rx] Atorvastatin [Lipitor] 40 mg PO DAILY tab 07/26/17 [Rx] Enoxaparin [Lovenox] 40 mg SQ DAILY syr 07/26/17 [Rx] Folic Acid 1 mg PO DAILY@1200 tab 07/26/17 [Rx] HYDROcodone/APAP 5-325MG [[place] 5-325] 1 each PO Q6HR PRN #120 tab 07/26/17 [Rx] INSULIN LISPRO (humaLOG) [humaLOG (formulary)] 0 unit SQ ACHS vial 07/26/17 [Rx ] Ipratropium-Albuterol Nebulize [Duoneb 0.5 mg-3 mg/3 ml Soln] 3 ml INHALATION RT -Q4H PRN neb 07/26/17 [Rx] Metoprolol Tartrate [Lopressor] 25 mg PO BID tab 07/26/17 [Rx] Pantoprazole [Protonix] 40 mg PO AC-BRKFST tab 07/26/17 [Rx] Thiamine [Vitamin B-1] 100 mg PO DAILY@1200 tab 07/26/17 [Rx] amLODIPine [Norvasc] 10 mg PO DAILY tab 07/26/17 [Rx] Follow up Appointment(s)/Referral(s): Sathya Powers MD [STAFF PHYSICIAN] - 3 Weeks (f/u in 3 to 4 weeks in office ) Emiliano Johns MD [Primary Care Provider] - 2 Weeks Patient Instructions/Handouts: Ischemic Stroke (DC) Activity/Diet/Wound Care/Special Instructions: Up with assist and walker, fall precautions, change positions every 2 hours. Elevate legs when in chair. Cardiac, diabetic diet. Discharge Disposition: TRANSFER TO SNF/ECF
--- NOTE | 2017-07-27 00:42 | P.PN ---
Subjective Dr. Alexa Powers was notified of change in this patient's mental status at 3:30 AM on 07/19/2017. Patient had symptoms of worsening right hemispheric stroke. This patient is a 87-year-old right-handed white female who was initially admitted to [facility] on 07/17/2017 with symptoms of multiple falls and generalized weakness. On her initial neurological examination the patient was found to have evidence of significant left-sided weakness. She underwent a MRI of the brain yesterday which did reveal evidence of multiple areas of acute infarction involving the right hemisphere of the brain. Given the multiple areas of acute infarction it was felt she likely had a cardioembolic stroke. Cardiology was consulted yesterday for evaluation of possible ALICIA procedure for this patient to further evaluate for PFO and/or atrial thrombus. The patient was seen yesterday evening on 07/18/2017 and appeared to show signs of some improvement in her speech. Early this morning at about 3 AM the nurse taking care of the patient noticed that she was having much more difficulty with her speech. She was much more dysarthric and dysphasic. Her left-sided weakness also significantly worsen. A code stroke was initiated and Dr. Alexa Powers was contacted by pager. We recommended a stat computed tomography scan of the brain to be done. This was completed this morning and the results indicate evidence of her large right frontal and parietal lobe stroke. He was also area involving the right frontal lobe and right cerebellar hemisphere. These are the same areas that was noted on the MRI of the brain that was done yesterday. Radiologist did not see any evidence of hemorrhagic transformation. We have recommended that the patient should be transferred into the intensive care unit for close supervision. We will start her on IV Decadron 10 mg IV push followed with a maintenance dose of 6 mg every 4 hours. The patient was reexamined this morning at 4:30 AM at her bedside. She seems to be resting comfortably. Her speech once again shows improvement from earlier this morning. She at this time seems to be near the level of function as she was last night. Her speech is dysarthric but not severe. She is noted to have left-sided hemiparesthesias. This also does not seem changed from yesterday. The code stroke security systems administrator and nurse electrical supervisor did contact the patient's daughter and son. They have made the patient a DO NOT RESUSCITATE CODE STATUS at this time. As noted she will be transferred up to the intensive care unit this morning as soon as a bed is available. The patient is now resting comfortably. She continues to show improvement overall following her recent stroke. Her speech deficit has stabilized. Patient's prognosis remains fair. She has shown improvement with her recent stroke in terms of cognitive function. We will continue close neurological follow-up with this patient. We are still waiting to see if ALICIA procedure is to be done for this patient by cardiology. We will have nursing staff contact cardiology specifically with this question. Apparently cardiology wants to hold off on ALICIA procedure at this time. Patient is being weaned off of her IV Decadron over the next 24 hours. She is awaiting transferred to ECF possibly later today. Patient may follow-up in the outpatient neurology clinic in 3-4 weeks. Her overall neurological status has remained stable since discharge from the ICU. We will continue close neurological follow-up of this patient on the medical floor. Her overall prognosis at this time remains very guarded. Resume patient may follow-up in the outpatient neurology clinic in 3-4 weeks following her discharge to the ECF later today. Objective - Vital Signs Vital signs: Vital Signs Temp 97.4 F L 07/26/17 07:00 Pulse 78 07/26/17 07:00 Resp 20 07/26/17 07:00 BP 152/76 07/26/17 12:01 Pulse Ox 98 07/26/17 07:00 Intake & Output 07/25/17 07/26/17 07/26/17 18:59 06:59 18:59 Intake Total 450 120 Balance 450 120 Intake: Oral 450 120 Other: Voiding Method Bedpan Bedpan Bedpan # Voids 2 1 # Bowel Movements 1 1 - Exam Physical examination: PHYSICAL EXAMINATION: Patient is resting comfortably in bed. VITAL SIGNS: Blood pressure [184/83]. Heart rate is [78]. Respiration is [20]. Temperature is [97.4]. HEENT: Head is atraumatic, neck is supple, there were no carotid bruits. CHEST: Lungs are clear to auscultation and percussion. CARDIAC: S1, S2 normal rate and rhythm. There is no murmur. ABDOMEN: Soft and nontender. Bowel sounds are present. EXTREMITIES: There is no pedal edema. Peripheral pulses are present. Neurological examination: Patient's neurological examination is unchanged from yesterday. She has evidence of a left facial droop with upper motor neuron findings. She has a left pronator drift and left-sided hemiparesthesias. Her speech remains dysphasic. Her speech is slowly improving. Patient's speech appears to be stable at this time. Apparently earlier this morning she had very severe garbled speech and hard to comprehend. She now seems to be back to her baseline as she was yesterday evening. Her aphasia seems to be back waxing and waning. This will be closely monitored. - Labs CBC & Chem 7: 07/24/17 10:09 07/24/17 10:09 Labs: Abnormal Lab Results - Last 24 Hours (Table) 07/25/17 07/25/17 Range/Units 16:58 20:42 POC Glucose (mg/dL) 115 H 131 H (75-99) mg/dL Assessment and Plan (1) Acute right arterial ischemic stroke, MCA (middle cerebral artery) Status: Acute Code(s): I63.511 - CEREB INFRC D/T UNSP OCCLS OR STENOS OF RIGHT MID CEREB ART (2) Multiple falls Status: Acute Code(s): R29.6 - REPEATED FALLS (3) Debility Status: Acute Code(s): R53.81 - OTHER MALAISE (4) Community acquired pneumonia Status: Acute Code(s): J18.9 - PNEUMONIA, UNSPECIFIED ORGANISM Plan: This patient is a 87-year-old right-handed white female who initially was admitted to [facility] with symptoms of multiple falls and generalized weakness. Patient was brought into the emergency room and underwent an initial computed tomography scan of the brain which was reported negative for any acute stroke or hemorrhage. Patient was seen none neurology consultation and clearly had evidence of left-sided hemiparesis. She has a left facial droop as well as evidence of an expressive aphasia. She was recommended to undergo MRI of the brain which was completed yesterday. MRI revealed multiple areas of acute infarction involving the right hemisphere. There was no evidence of hemorrhagic transformation. We have recommended cardiology to be consulted for further evaluation for ALICIA procedure for this patient. The patient was seen yesterday evening on neurology follow-up. At that time she showed slight improvement with her speech which was less dysphasic. This morning at about 3 AM the patient showed worsening signs of left-sided weakness and worsening aphasia. A code stroke was initiated. Dr. Alexa Powers was notified by pager of her sudden decline and change. Patient was seen at 4:30 AM on the 5 E. medical floor. She once again seem to be back to her baseline. She did not demonstrate evidence of severe aphasia at this time. Her left-sided hemiparesis appears to be unchanged from previous. The patient was sent for a repeat computed tomography scan of the brain given the changes in her neurological status. CAT scan was reported by the radiologist today are showing new areas of right frontal and parietal lobe infarction. There is also area of infarction involving the right cerebellar hemisphere. These findings were noted on her MRI of the brain that was done yesterday. Given her current change in her neurological status we have recommended that she be transferred to the intensive care unit for close monitoring. The nursing staff did contact the patient's daughter and son. They have now made the patient a DO NOT RESUSCITATE status. We will transfer this patient to the intensive care unit once a bed becomes available. We will start her on IV Decadron 10 mg IV push followed by maintenance dose of IV Decadron 6 mg every 4 hours. This will be gradually tapered over the next few days. We will plan to get a repeat computed tomography scan of the brain tomorrow as a short-term follow-up. This CAT scan was repeated and fails to reveal any new areas of stroke. We are still awaiting cardiology's input regarding possible ALICIA procedure for this patient. Apparently cardiology feels she does not require ALICIA at this time given her age. The patient is able to answer questions appropriately this morning. We will need to put her on neuro checks with close monitoring on the medical floor. Patient is being considered for inpatient rehab. We will await further recommendations from PT/OT for the patient. We will continue close neurological follow-up of this patient during this admission. Patient is being considered for inpatient rehab. Patient will be weaned off of her IV Decadron over the next 2 days. Hopefully loyd will be able to be transferred to ECF as she is neurologically stable. Patient will be transferred ECF later today. She may follow-up in the outpatient neurology clinic in 3-4 weeks. Her overall prognosis at this time remains very guarded.
[2017-07-27] MEDS ORDERED: amLODIPine 10 MG TAB PO SCH (09:00)
== END 2017-07-26 15:05 | DRG 871 ==
LOC: EC 00:24 → 5MS5E 02:21 → 6ICU 07-19 06:29 → 4MS4W 07-20 18:14
PROVIDERS: ADMIT Family Medicine; ATTEND Family Medicine
PROC: 0T9B70Z Drainage of Bladder with Drainage Device, Via Natural or Artificial Opening (ICD-10-PCS; principal; 2017-07-19)
DX: A41.9 Sepsis, unspecified organism (principal); J18.9 Pneumonia, unspecified organism; I63.411 Cerebral infarction due to embolism of right middle cerebral artery; G81.94 Hemiplegia, unspecified affecting left nondominant side; E86.0 Dehydration; D64.9 Anemia, unspecified; I11.9 Hypertensive heart disease without heart failure; E83.42 Hypomagnesemia; R13.10 Dysphagia, unspecified; R47.01 Aphasia; Z66 Do not resuscitate; E87.6 Hypokalemia; S40.022A Contusion of left upper arm, initial encounter; S00.83XA Contusion of other part of head, initial encounter; K21.9 Gastro-esophageal reflux disease without esophagitis; R51 Headache; R47.02 Dysphasia; R29.810 Facial weakness; R47.81 Slurred speech; R47.1 Dysarthria and anarthria; R32 Unspecified urinary incontinence; M47.9 Spondylosis, unspecified; R29.6 Repeated falls; R29.709 NIHSS score 9; R74.8 Abnormal levels of other serum enzymes; M19.90 Unspecified osteoarthritis, unspecified site; R00.0 Tachycardia, unspecified; R11.2 Nausea with vomiting, unspecified; R19.7 Diarrhea, unspecified; R26.9 Unspecified abnormalities of gait and mobility; Z79.1 Long term (current) use of non-steroidal anti-inflammatories (NSAID); Z82.49 Family history of ischemic heart disease and other diseases of the circulatory system; Z79.899 Other long term (current) drug therapy; Z79.82 Long term (current) use of aspirin; Z87.891 Personal history of nicotine dependence; Z71.3 Dietary counseling and surveillance; Z90.89 Acquired absence of other organs; Z82.79 Family history of other congenital malformations, deformations and chromosomal abnormalities; Z91.81 History of falling; Z86.73 Personal history of transient ischemic attack (TIA), and cerebral infarction without residual deficits; W19.XXXA Unspecified fall, initial encounter; Y92.009 Unspecified place in unspecified non-institutional (private) residence as the place of occurrence of the external cause
CPT/HCPCS: 36415; 70450; 70551; 71010; 71020; 72125; 80048; 80053; 80061; 81001; 82550; 82553; 83036; 83605; 83735; 84100; 84132; 84443; 84484; 85025; 85027; 85610; 85730; 87040; 87086; 87502; 93005; 93306; 93880; 94760; 95819; 96361; 96365; 96368; 96375; 99285

== ENCOUNTER 2017-12-01 01:37 | Inpatient (IN) | payer MEDICARE, BC ==
[2017-12-01] MEDS ORDERED: SODIUM CHLORIDE 0.9% 500 ML IV STA ×2 (01:45→03:35)
[2017-12-01] MEDS ORDERED: SODIUM CHLORIDE 0.9% 1,000 ML IV STA (01:45)
--- NOTE | 2017-12-01 01:48 | ED ---
General Adult HPI - General Chief complaint: Upper Respiratory Infection Stated complaint: Weakness Time Seen by Provider: 12/01/17 01:37 Source: patient, EMS, RN notes reviewed Mode of arrival: EMS Limitations: no limitations - History of Present Illness Initial comments: This is a 87-year-old female who is brought in for evaluation for generalized weakness apparently she's had progressive weakness over last week getting worse she normally can male with a walker she's unable to support her awake now. She was apparently diagnosed with influenza about a week ago. She presents to have a cough. Lites weakness she was noted have a blood pressure of 80 and 90 systolic initially. She was brought in by EMS. Patient is a poor historian. Per reports she complained of generalized aches and pains. 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 - Related Data Home Medications Medication Instructions Recorded Confirmed Aspirin [Adult Low Dose Aspirin EC] 81 mg PO DAILY 05/23/17 07/17/17 Gabapentin [Neurontin] 100 mg PO TID 05/23/17 07/17/17 Lisinopril-Hctz 20-12.5 mg 1 tab PO BID 05/23/17 07/17/17 [Zestoretic 20-12.5] Naproxen Sodium [Aleve] 220 mg PO Q12HR PRN 05/23/17 07/17/17 Omeprazole 20 mg PO DAILY 05/23/17 07/17/17 Previous Rx's Medication Instructions Recorded Acetaminophen Tab [Tylenol] 325 mg PO Q6HR PRN #0 tab 07/26/17 Atorvastatin [Lipitor] 40 mg PO DAILY tab 07/26/17 Enoxaparin [Lovenox] 40 mg SQ DAILY syr 07/26/17 Folic Acid 1 mg PO DAILY@1200 tab 07/26/17 HYDROcodone/APAP 5-325MG [[place] 1 each PO Q6HR PRN #120 tab 07/26/17 5-325] INSULIN LISPRO (humaLOG) [humaLOG] 0 unit SQ ACHS vial 07/26/17 Ipratropium-Albuterol Nebulize 3 ml INHALATION RT-Q4H PRN neb 07/26/17 [Duoneb 0.5 mg-3 mg/3 ml Soln] Metoprolol Tartrate [Lopressor] 25 mg PO BID tab 09/28/17 Pantoprazole [Protonix] 40 mg PO AC-BRKFST tab 07/26/17 Thiamine [Vitamin B-1] 100 mg PO DAILY@1200 tab 07/26/17 amLODIPine [Norvasc] 10 mg PO DAILY tab 07/26/17 Allergies Allergy/AdvReac Type Severity Reaction Status Date / Time No Known Allergies Allergy Verified 12/01/17 01:44 Review of Systems ROS Statement: Those systems with pertinent positive or pertinent negative responses have been documented in the HPI. ROS Other: All systems not noted in ROS Statement are negative. Past Medical History Past Medical History: GERD/Reflux, Hypertension, Osteoarthritis (OA) Additional Past Medical History / Comment(s): Previous history of CVA, hypertension, acid reflux, osteoarthritis. History of Any Multi-Drug Resistant Organisms: None Reported Past Surgical History: Tonsillectomy Additional Past Surgical History / Comment(s): neck sx "don't know what kind of surgery" Past Anesthesia/Blood Transfusion Reactions: No Reported Reaction Past Psychological History: No Psychological Hx Reported Smoking Status: Former smoker Past Alcohol Use History: Occasional Past Drug Use History: None Reported - Past Family History Mother Family Medical History: Hypertension Additional Family Medical History / Comment(s): "born with hole in heart" Father Family Medical History: Myocardial Infarction ([place]) General Exam - General Exam Comments Initial Comments: This is a well-developed well-nourished awake lethargic female Limitations: no limitations General appearance: alert, in no apparent distress Head exam: Present: atraumatic, normocephalic, normal inspection Eye exam: Present: normal appearance, PERRL, EOMI. Absent: scleral icterus, conjunctival injection, periorbital swelling ENT exam: Present: mucous membranes dry Neck exam: Present: normal inspection. Absent: tenderness, meningismus, lymphadenopathy Respiratory exam: Present: decreased breath sounds, other (A rhonchorous cough is noted.). Absent: respiratory distress, wheezes, rales, rhonchi, stridor Cardiovascular Exam: Present: regular rate, normal rhythm, normal heart sounds. Absent: systolic murmur, diastolic murmur, rubs, gallop, clicks GI/Abdominal exam: Present: soft, normal bowel sounds. Absent: distended, tenderness, guarding, rebound, rigid Extremities exam: Present: normal inspection, full ROM, normal capillary refill. Absent: tenderness, pedal edema, joint swelling, calf tenderness Back exam: Present: normal inspection Neurological exam: Present: alert, altered, CN II-XII intact, other (Slight left -sided deficit compared to the right) Psychiatric exam: Present: normal affect, normal mood Skin exam: Present: warm, dry, intact, normal color. Absent: rash Course Vital Signs 12/01/17 12/01/17 12/01/17 01:38 02:43 03:50 Temperature 98.4 F Pulse Rate 91 82 84 Respiratory 20 16 16 Rate Blood Pressure 142/62 131/58 117/58 O2 Sat by Pulse 94 L 95 97 Oximetry EKG Findings - EKG Results: EKG: interpreted by VILMA, sinus rhythm (Sinus rhythm with a rate of 82. Interval 150 to QRS duration 82 QT since QTC 3 his is a normal-appearing EKG.) Medical Decision Making - Medical Decision Making I did discuss findings with the patient's family the patient will be admitted for IV antibiotics and IV fluids. She does have left lower lobe pneumonia she does have dehydration and acute renal failure. The patient is being covered by Dr. Morris who is covering Dr. Andreas mccarthy - Lab Data Result diagrams: 12/01/17 01:58 12/01/17 01:58 Lab Results 12/01/17 12/01/17 12/01/17 Range/Units 01:58 01:58 01:58 WBC 12.2 H (3.8-10.6) k/uL RBC 3.71 L (3.80-5.40) m/uL Hgb 10.8 L (11.4-16.0) gm/dL Hct 32.8 L (34.0-46.0) % MCV 88.3 (80.0-100.0) fL MCH 29.1 (25.0-35.0) pg MCHC 32.9 (31.0-37.0) g/dL RDW 13.5 (11.5-15.5) % Plt Count 576 H (150-450) k/uL Neutrophils % 66 % Lymphocytes % 27 % Monocytes % 4 % Eosinophils % 1 % Basophils % 0 % Neutrophils # 8.0 H (1.3-7.7) k/uL Lymphocytes # 3.3 (1.0-4.8) k/uL Monocytes # 0.5 (0-1.0) k/uL Eosinophils # 0.1 (0-0.7) k/uL Basophils # 0.1 (0-0.2) k/uL Sodium 136 L (137-145) mmol/L Potassium 4.1 (3.5-5.1) mmol/L Chloride 98 (98-107) mmol/L Carbon Dioxide 24 (22-30) mmol/L Anion Gap 14 mmol/L BUN 96 H* (7-17) mg/dL Creatinine 2.30 H (0.52-1.04) mg/dL Est GFR (MDRD) Af Amer 24 (>60 ml/min/1.73 sqM) Est GFR (MDRD) Non-Af 20 (>60 ml/min/1.73 sqM) Glucose 106 H (74-99) mg/dL Plasma Lactic Acid [place] (0.7-2.0) mmol/L Calcium 8.9 (8.4-10.2) mg/dL Magnesium 1.0 L* (1.6-2.3) mg/dL Total Bilirubin 0.6 (0.2-1.3) mg/dL AST 18 (14-36) U/L ALT 19 (9-52) U/L Alkaline Phosphatase 144 H (38-126) U/L Total Creatine Kinase 32 (30-135) U/L CK-MB (CK-2) 1.1 (0.0-2.4) ng/mL CK-MB (CK-2) Rel Index 3.4 Troponin I 0.022 (0.000-0.034) ng/mL Total Protein 6.0 L (6.3-8.2) g/dL Albumin 3.2 L (3.5-5.0) g/dL Amylase 101 (30-110) U/L 12/01/17 Range/Units 01:58 WBC (3.8-10.6) k/uL RBC (3.80-5.40) m/uL Hgb (11.4-16.0) gm/dL Hct (34.0-46.0) % MCV (80.0-100.0) fL MCH (25.0-35.0) pg MCHC (31.0-37.0) g/dL RDW (11.5-15.5) % Plt Count (150-450) k/uL Neutrophils % % Lymphocytes % % Monocytes % % Eosinophils % % Basophils % % Neutrophils # (1.3-7.7) k/uL Lymphocytes # (1.0-4.8) k/uL Monocytes # (0-1.0) k/uL Eosinophils # (0-0.7) k/uL Basophils # (0-0.2) k/uL Sodium (137-145) mmol/L Potassium (3.5-5.1) mmol/L Chloride (98-107) mmol/L Carbon Dioxide (22-30) mmol/L Anion Gap mmol/L BUN (7-17) mg/dL Creatinine (0.52-1.04) mg/dL Est GFR (MDRD) Af Amer (>60 ml/min/1.73 sqM) Est GFR (MDRD) Non-Af (>60 ml/min/1.73 sqM) Glucose (74-99) mg/dL Plasma Lactic Acid [place] 1.0 (0.7-2.0) mmol/L Calcium (8.4-10.2) mg/dL Magnesium (1.6-2.3) mg/dL Total Bilirubin (0.2-1.3) mg/dL AST (14-36) U/L ALT (9-52) U/L Alkaline Phosphatase (38-126) U/L Total Creatine Kinase (30-135) U/L CK-MB (CK-2) (0.0-2.4) ng/mL CK-MB (CK-2) Rel Index Troponin I (0.000-0.034) ng/mL Total Protein (6.3-8.2) g/dL Albumin (3.5-5.0) g/dL Amylase (30-110) U/L - Radiology Data Radiology results: report reviewed (I did review the imaging and report is evidence of a left lower lobe), image reviewed Disposition Clinical Impression: Left lower lobe pneumonia, Acute renal failure, Dehydration, Weakness Disposition: ADMITTED IP TO THIS [facility] Condition: Stable Referrals: Emiliano Johns MD [Primary Care Provider] - 1-2 days
[2017-12-01 02:31] LABS: Basophils # (A) 0.1 k/uL (0-0.2); Basophils % (A) 0 %; Eosinophils # (A) 0.1 k/uL (0-0.7); Eosinophils % (A) 1 %; HCT 32.8 % (34.0-46.0); HGB 10.8 gm/dL (11.4-16.0); Lymphocytes # (A) 3.3 k/uL (1.0-4.8); Lymphocytes % (A) 27 %; MCH 29.1 pg (25.0-35.0); MCHC 32.9 g/dL (31.0-37.0); MCV 88.3 fL (80.0-100.0); Monocytes # (A) 0.5 k/uL (0-1.0); Monocytes % (A) 4 %; Neutrophils % (A) 66 %; Platelet Count 576 k/uL (150-450); RBC 3.71 m/uL (3.80-5.40); RDW 13.5 % (11.5-15.5); WBC 12.2 k/uL (3.8-10.6)
--- NOTE | 2017-12-01 02:33 | XR ---
EXAM: XR Chest, 2 Views CLINICAL HISTORY: Reason: cough TECHNIQUE: Frontal and lateral views of the chest. COMPARISON: 07/21/17 FINDINGS: Lungs: Left lower lobe airspace disease with air bronchogram. Hyperexpansion of the lungs with flattening of the diaphragm, consistent with chronic obstructive pulmonary disease. Pleural space: No visualized pneumothorax. Possible small left effusion. Heart: Borderline cardiomegaly.. Atherosclerosis. Mediastinum: Unremarkable. Bones/joints: [place] kyphotic curvature of the thoracic spine and multilevel degenerative disc disease. IMPRESSION: 1. Left lower lobe airspace disease concerning for pneumonia. 2. Possible small left pleural effusion and likely mild elevation of the left hemidiaphragm.
[2017-12-01 02:35] LABS: Albumin 3.2 g/dL (3.5-5.0); Calcium 8.9 mg/dL (8.4-10.2); Potassium 4.1 mmol/L (3.5-5.1); Total Bilirubin 0.6 mg/dL (0.2-1.3)
[2017-12-01 02:51] LABS: Creatine Kinase MB 1.1 ng/mL (0.0-2.4); Troponin I 0.022 ng/mL (0.000-0.034)
[2017-12-01] MEDS ORDERED: MAGNESIUM SULFATE-D5W PMX 1 GM in DEXTROSE/WATER 1 100ML.BAG IVPB ONE (03:35)
[2017-12-01] MEDS ORDERED: PIPERACILLIN-TAZOBACTAM 3.375 GM in DEXTROSE/WATER 1 50ML.BAG IVPB STA (03:36)
[2017-12-01] MEDS ORDERED: PNEUMONIA PROTOCOL UTILIZED 1 EACH MISC PO PRN (04:04)
[2017-12-01] MEDS ORDERED: NAPROXEN 250 MG TAB PO PRN (04:13)
[2017-12-01] MEDS ORDERED: ACETAMINOPHEN TAB 325 MG TAB PO PRN ×2 (04:13→13:16)
[2017-12-01] MEDS ORDERED: IPRATROPIUM-ALBUTEROL 3 ML NEB INHALATION PRN (04:27)
[2017-12-01] MEDS: SODIUM CHLORIDE 0.9% 1,000 ML IV SCH ×2 (05:47→15:38)
[2017-12-01] MEDS: LEVOFLOXACIN 750MG-D5W PMX 750 MG in DEXTROSE/WATER 1 150ML.BAG IVPB SCH ×2 (05:47→08:11)
[2017-12-01 06:27] VITALS: BMI 19.5
[2017-12-01] MEDS ORDERED: LISINOPRIL-HCTZ 20-12.5 MG 1 EACH TAB PO SCH (07:00)
[2017-12-01] MEDS: IPRATROPIUM-ALBUTEROL 3 ML NEB INHALATION SCH ×5 (07:42→19:50)
[2017-12-01] MEDS ORDERED: IPRATROPIUM-ALBUTEROL 3 ML NEB INHALATION SCH (08:00)
[2017-12-01] MEDS: ATORVASTATIN 40 MG TAB PO SCH (08:46)
[2017-12-01] MEDS: PANTOPRAZOLE 40 MG TABLET PO SCH (08:47)
[2017-12-01] MEDS: GABAPENTIN 100 MG CAP PO SCH ×3 (08:48→19:59)
[2017-12-01] MEDS: METOPROLOL TARTRATE 25 MG TAB PO SCH ×2 (08:48→20:00)
[2017-12-01] MEDS: ASPIRIN 81 MG PO SCH (08:48)
[2017-12-01] MEDS ORDERED: ENOXAPARIN 40 MG/0.4 ML SYRINGE SQ SCH (09:00)
[2017-12-01] MEDS ORDERED: amLODIPine 10 MG TAB PO SCH (09:00)
[2017-12-01] MEDS ORDERED: NON-FORMULARY DRUG (Omeprazole [Omeprazole] 20 MG) PO SCH (09:00)
[2017-12-01] MEDS: THIAMINE 100 MG TAB PO SCH (12:03)
[2017-12-01] MEDS: FOLIC ACID 1 MG TAB PO SCH (12:03)
[2017-12-01 13:27] LABS: Appearance,Urine Cloudy (Clear); Bacteria,Urine Rare /hpf; Bilirubin,Urine Negative (Negative); Blood,Urine Trace (Negative); Color,Urine Yellow; Glucose,Urine (UA) Negative (Negative); Ketones,Urine Negative (Negative); Leukocyte Esterase,Urine Large (Negative); Mucus,Urine Rare /hpf; Nitrite,Urine Negative (Negative); Protein,Urine Trace (Negative); RBC,Urine 3 /hpf (0-5); Specific Gravity,Urine 1.011 (1.001-1.035); Squamous Epithelial Cell,Urine 5 /hpf (0-4); Urobilinogen,Urine <2.0 mg/dL (<2.0); WBC,Urine >182 /hpf (0-5)
[2017-12-01] MEDS: traMADol 50 MG TAB PO PRN (13:40)
--- NOTE | 2017-12-01 14:33 | P.HPIM ---
History of Present Illness 87-year-old female who is brought in for evaluation for generalized weakness apparently she's had progressive weakness over last week getting worse she normally can male with a walker she's unable to support her awake now. She was apparently diagnosed with influenza about a week ago. She presents to have a cough. Lites weakness she was noted have a blood pressure of 80 and 90 systolic initially. She was brought in by EMS. Patient is a poor historian. Per reports she complained of generalized aches and pains. 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 Patient is found to have left lower lobe pneumonia patient was [facility] and levofloxacin, levofloxacin was discontinued. Patient has altered mental status was than her baseline which is improving at this time. Patient also has worsening kidney function baseline creatinine around 0.8. On anti- happens medications naproxen will be discontinued because of the poor renal function patient is on IV fluids at 75 mL/h which will be continued. Patient was coughing denied any dysuria denied any nausea vomiting abdominal pain. Review of Systems Except for those mentioned above rest of the review of systems unable to obtain due to her pink due to her clinical condition Past Medical History Past Medical History: GERD/Reflux, Hypertension, Osteoarthritis (OA) Additional Past Medical History / Comment(s): Previous history of CVA w/ left- sided weakness, hypertension, acid reflux, osteoarthritis, physical debility, falls, History of Any Multi-Drug Resistant Organisms: None Reported Past Surgical History: Tonsillectomy Additional Past Surgical History / Comment(s): neck sx "don't know what kind of surgery" Past Anesthesia/Blood Transfusion Reactions: No Reported Reaction Past Psychological History: No Psychological Hx Reported Smoking Status: Former smoker Past Alcohol Use History: Occasional Additional Past Alcohol Use History / Comment(s): "Quit a long time ago". Past Drug Use History: None Reported - Past Family History Mother Family Medical History: Hypertension Additional Family Medical History / Comment(s): "born with hole in heart" Father Family Medical History: Myocardial Infarction (ID) Medications and Allergies Home Medications Medication Instructions Recorded Confirmed Type Aspirin [Adult Low Dose Aspirin EC] 81 mg PO DAILY 05/23/17 12/01/17 History Gabapentin [Neurontin] 100 mg PO TID 05/23/17 12/01/17 History Lisinopril-Hctz 20-12.5 mg 1 tab PO BID 05/23/17 12/01/17 History [Zestoretic 20-12.5] Acetaminophen Tab [Tylenol] 325 mg PO Q6HR PRN #0 tab 07/26/17 12/01/17 Rx Ipratropium-Albuterol Nebulize 3 ml INHALATION RT-Q4H PRN neb 07/26/17 Rx [Duoneb 0.5 mg-3 mg/3 ml Soln] Metoprolol Tartrate [Lopressor] 25 mg PO BID tab 07/26/17 12/01/17 Rx Pantoprazole [Protonix] 40 mg PO AC-BRKFST tab 07/26/17 12/01/17 Rx Atorvastatin [Lipitor] 40 mg PO HS 12/01/17 12/01/17 History Bismuth Subsalicylate 524 mg PO Q4H PRN 12/01/17 12/01/17 History [Pepto-Bismol] Dimethicone/Zinc Oxide [Inzo Zinc 1 applic TOPICAL BID 12/01/17 12/01/17 History Oxide Barrier Cream] Folic Acid 1 mg PO DAILY 12/01/17 12/01/17 History Furosemide [Lasix] 20 mg PO DAILY@1400 12/01/17 12/01/17 History Furosemide [Lasix] 40 mg PO DAILY@0900 12/01/17 12/01/17 History HYDROcodone/APAP 5-325MG [Warren 1 tab PO Q6HR PRN 12/01/17 12/01/17 History 5-325] Loratadine [Claritin] 10 mg PO DAILY 12/01/17 12/01/17 History Potassium Chloride [Klor-Con 10] 10 meq PO DAILY 12/01/17 12/01/17 History Thiamine [Vitamin B-1] 100 mg PO DAILY 12/01/17 12/01/17 History guaiFENesin [guaiFENesin Oral 200 mg PO Q4H PRN 12/01/17 12/01/17 History Solution] Allergies Allergy/AdvReac Type Severity Reaction Status Date / Time No Known Allergies Allergy Verified 12/01/17 10:43 Physical Exam Vitals: Vital Signs Temp Pulse Pulse Resp BP BP Pulse Ox 12/01/17 11:49 80 16 12/01/17 11:39 81 16 12/01/17 07:53 81 16 12/01/17 07:43 78 16 98 12/01/17 07:00 97.2 F L 82 16 109/48 95 12/01/17 03:50 84 16 117/58 97 12/01/17 02:43 82 16 131/58 95 12/01/17 01:38 98.4 F 91 20 142/62 94 L Intake and Output 11/30/17 12/01/17 12/01/17 22:59 06:59 14:59 Other: Voiding Method Diaper Incontinent # Voids 0 # Bowel Movements 0 Weight 51.5 kg PHYSICAL EXAMINATION: GENERAL: The patient is alert and oriented x3, not in any acute distress. Well developed, well nourished. HEENT: Pupils are round and equally reacting to light. EOMI. No scleral icterus. No conjunctival pallor. Normocephalic, atraumatic. No pharyngeal erythema. No thyromegaly. CARDIOVASCULAR: S1 and S2 present. No murmurs, rubs, or gallops. PULMONARY: Decreased air entry with rhonchus breath sounds bilaterally there is some bronchophony in the left lower lung [place] posteriorly ABDOMEN: Soft, nontender, nondistended, normoactive bowel sounds. No palpable organomegaly. MUSCULOSKELETAL: No joint swelling or deformity. EXTREMITIES: No cyanosis, clubbing, or pedal edema. NEUROLOGICAL: Gross neurological examination did not reveal any focal deficits. SKIN: No rashes. Results CBC & Chem 7: 12/01/17 01:58 12/01/17 01:58 Labs: Abnormal Lab Results - Last 24 Hours (Table) 12/01/17 12/01/17 12/01/17 Range/Units 01:58 01:58 13:00 WBC 12.2 H (3.8-10.6) k/uL RBC 3.71 L (3.80-5.40) m/uL Hgb 10.8 L (11.4-16.0) gm/dL Hct 32.8 L (34.0-46.0) % Plt Count 576 H (150-450) k/uL Neutrophils # 8.0 H (1.3-7.7) k/uL Sodium 136 L (137-145) mmol/L BUN 96 H* (7-17) mg/dL Creatinine 2.30 H (0.52-1.04) mg/dL Glucose 106 H (74-99) mg/dL Magnesium 1.0 L* (1.6-2.3) mg/dL Alkaline Phosphatase 144 H (38-126) U/L Total Protein 6.0 L (6.3-8.2) g/dL Albumin 3.2 L (3.5-5.0) g/dL Urine Appearance Cloudy H (Clear) Urine Protein Trace H (Negative) Urine Blood Trace H (Negative) Ur Leukocyte Esterase Large H (Negative) Urine WBC >182 H (0-5) /hpf Urine WBC Clumps Moderate H (None) /hpf Ur Squamous Epith Cells 5 H (0-4) /hpf Urine Bacteria Rare H (None) /hpf Urine Mucus Rare H (None) /hpf Thrombosis Risk Factor Assmnt - Choose All That Apply Any of the Below Risk Factors Present?: Yes Each Factor Represents 1 point: Medical pt on bed rest, Serious lung disease incl. pneumonia (< 1month) Other Risk Factors: Yes Each Risk Factor Represents 3 Points: Age 75 years or older Other congenital or acquired thrombophilia - If yes, enter type in comment: No Thrombosis Risk Factor Assessment Total Risk Factor Score: 5 Thrombosis Risk Factor Assessment Level: High Risk Assessment and Plan Plan: -Sepsis: Due to pneumonia patient may have had influenza pneumonia other secondary bacterial pneumonia Zosyn will be continued reflux and can be discontinued sputum cultures elevating sputum cultures and blood cultures. -Toxic encephalopathy from sepsis improving at this time with IV antibiotics -Acute renal dysfunction secondary to prerenal azotemia along with acute tubular necrosis from infection and sepsis IV fluids will be continued, nephrotoxic agents and antidepressive medications will be discontinued including lisinopril hydrochlorothiazide although metoprolol will be continued with concerns of reflux tachycardia. -Hypomagnesemia magnesium will be supplemented -Hypertension management as mentioned above -Osteoarthritis -
[2017-12-01] MEDS: MAGNESIUM SULFATE-D5W PMX 1 GM in DEXTROSE/WATER 1 100ML.BAG IVPB SCH ×4 (15:38→20:00)
[2017-12-01] MEDS: HYDROcodone/APAP 5-325MG 1 EACH TAB PO PRN (15:51)
[2017-12-01] MEDS: PIPERACILLIN-TAZOBACTAM 3.375 GM in DEXTROSE/WATER 1 50ML.BAG IVPB SCH (17:24)
[2017-12-01] MEDS: FAMOTIDINE 20 MG TAB PO SCH (19:59)
[2017-12-01] MEDS: HEPARIN SODIUM,PORCINE 5,000 UNIT/ML 1 ML VIAL SQ SCH (19:59)
[2017-12-02] MEDS: HYDROcodone/APAP 5-325MG 1 EACH TAB PO PRN ×2 (04:40→17:11)
[2017-12-02] MEDS: PIPERACILLIN-TAZOBACTAM 3.375 GM in DEXTROSE/WATER 1 50ML.BAG IVPB SCH ×2 (04:41→17:13)
[2017-12-02] MEDS: SODIUM CHLORIDE 0.9% 1,000 ML IV SCH ×2 (04:42→10:25)
[2017-12-02] MEDS: IPRATROPIUM-ALBUTEROL 3 ML NEB INHALATION SCH ×4 (07:33→20:21)
[2017-12-02] MEDS ORDERED: LEVOFLOXACIN 500MG-D5W PMX 500 MG in DEXTROSE/WATER 1 100ML.BAG IVPB SCH (08:00)
[2017-12-02 08:08] LABS: HCT 35.4 % (34.0-46.0); HGB 11.1 gm/dL (11.4-16.0); MCHC 31.4 g/dL (31.0-37.0); MCV 92.6 fL (80.0-100.0); Mean Platelet Volume 6.9; Platelet Count 617 k/uL (150-450); RBC 3.82 m/uL (3.80-5.40); RDW 12.8 % (11.5-15.5); WBC 10.4 k/uL (3.8-10.6)
[2017-12-02 08:30] LABS: Calcium 9.1 mg/dL (8.4-10.2)
[2017-12-02 08:31] LABS: Magnesium 2.6 mg/dL (1.6-2.3); Potassium 4.3 mmol/L (3.5-5.1)
[2017-12-02] MEDS: ATORVASTATIN 40 MG TAB PO SCH (10:24)
[2017-12-02] MEDS: METOPROLOL TARTRATE 25 MG TAB PO SCH ×2 (10:24→20:22)
[2017-12-02] MEDS: ASPIRIN 81 MG PO SCH (10:24)
[2017-12-02] MEDS: FAMOTIDINE 20 MG TAB PO SCH ×2 (10:24→20:22)
[2017-12-02] MEDS: PANTOPRAZOLE 40 MG TABLET PO SCH (10:24)
[2017-12-02] MEDS: GABAPENTIN 100 MG CAP PO SCH ×3 (10:24→21:13)
[2017-12-02] MEDS: HEPARIN SODIUM,PORCINE 5,000 UNIT/ML 1 ML VIAL SQ SCH ×2 (10:25→20:22)
--- NOTE | 2017-12-02 11:57 | P.PN ---
Subjective A 87-year-old female admitted for sepsis possibility of pneumonia and urinary tract infection cannot be ruled out although urine is a contaminated sample patient on broad-spectrum antibiotics patient is significant improvement patient has improvement in her kidney function creatinine came down from 2.5- 1.5 patient is hyperchloremic because of which patient was started lactated Ringer's her lactic acid was not elevated on admission. Patient mental status improved significantly patient is alert oriented 3 now. Next Constitutional: Denied any fatigue denied any fever. Cardio vascular: denied any chest pain, palpitations Gastrointestinal denied any nausea vomiting Pulmonary: Denied any shortness of breath cough Neurologic denied any new focal deficits Objective - Vital Signs Vital signs: Vital Signs Temp 98.0 F 12/02/17 07:00 Pulse 84 12/02/17 07:23 Resp 20 12/02/17 07:00 BP 161/70 12/02/17 07:00 Pulse Ox 91 L 12/02/17 07:00 Intake & Output 12/01/17 12/02/17 12/02/17 18:59 06:59 18:59 Other: Voiding Method Bedside Commode Bedside Commode Incontinent Incontinent # Voids 1 3 - Exam PHYSICAL EXAMINATION: GENERAL: The patient is alert and oriented x3, not in any acute distress. Well developed, well nourished. HEENT: Pupils are round and equally reacting to light. EOMI. No scleral icterus. No conjunctival pallor. Normocephalic, atraumatic. No pharyngeal erythema. No thyromegaly. CARDIOVASCULAR: S1 and S2 present. No murmurs, rubs, or gallops. PULMONARY: Decreased air entry with rhonchus breath sounds bilaterally there is some bronchophony in the left lower lung [place] posteriorly ABDOMEN: Soft, nontender, nondistended, normoactive bowel sounds. No palpable organomegaly. MUSCULOSKELETAL: No joint swelling or deformity. EXTREMITIES: No cyanosis, clubbing, or pedal edema. NEUROLOGICAL: Gross neurological examination did not reveal any focal deficits. SKIN: No rashes. - Labs CBC & Chem 7: 12/02/17 07:53 12/02/17 07:53 Labs: Abnormal Lab Results - Last 24 Hours (Table) 12/01/17 12/02/17 12/02/17 Range/Units 13:00 07:53 07:53 Hgb 11.1 L (11.4-16.0) gm/dL Plt Count 617 H (150-450) k/uL Chloride 108 H (98-107) mmol/L Carbon Dioxide 20 L (22-30) mmol/L BUN 65 H (7-17) mg/dL Creatinine 1.55 H (0.52-1.04) mg/dL Glucose 102 H (74-99) mg/dL Magnesium 2.6 H (1.6-2.3) mg/dL Urine Appearance Cloudy H (Clear) Urine Protein Trace H (Negative) Urine Blood Trace H (Negative) Ur Leukocyte Esterase Large H (Negative) Urine WBC >182 H (0-5) /hpf Urine WBC Clumps Moderate H (None) /hpf Ur Squamous Epith Cells 5 H (0-4) /hpf Urine Bacteria Rare H (None) /hpf Urine Mucus Rare H (None) /hpf Microbiology - Last 24 Hours (Table) 12/01/17 01:58 Blood Culture - Preliminary Blood No Growth after 24 hours 12/01/17 13:00 Urine Culture - Preliminary Urine,Clean Catch Assessment and Plan Plan: -Sepsis: Due to pneumonia patient may have had influenza pneumonia other secondary bacterial pneumonia Zosyn will be continued reflux and can be discontinued sputum cultures elevating sputum cultures and blood cultures. Her not to rule out any urinary tract infection awaiting sputum cultures urine cultures and blood cultures -Toxic encephalopathy from sepsis improving at this time with IV antibiotics -Acute renal dysfunction secondary to prerenal azotemia along with acute tubular necrosis from infection and sepsis IV fluids will be continued, nephrotoxic agents and antidepressive medications will be discontinued including lisinopril hydrochlorothiazide although metoprolol will be continued with concerns of reflux tachycardia. Improved kidney function her blood pressure is as high will leave it high patient will not be started on antidepressant medications it can be started tomorrow if her kidney function improves and if his have her blood pressure is elevated started with lisinopril avoid diuretic therapy temporarily for now.. Patient IV fluids were switched to lactated Ringer's along obtain a chest x-ray considering her age as there is good chance of fluid retention -Hypomagnesemia magnesium will be supplemented -Hypertension management as mentioned above -Osteoarthritis -
[2017-12-02] MEDS: THIAMINE 100 MG TAB PO SCH (13:21)
[2017-12-02] MEDS: FOLIC ACID 1 MG TAB PO SCH (13:21)
[2017-12-02] MEDS: LACTATED RINGERS 1,000 ML IV SCH (13:22)
--- NOTE | 2017-12-02 15:26 | XR ---
EXAMINATION TYPE: XR chest 2V DATE OF EXAM: 12/02/2017 COMPARISON: NONE HISTORY: Pneumonia TECHNIQUE: Frontal and lateral views of the chest are obtained. FINDINGS: There is consolidation and pleural fluid at the left lung base. The right lung is relative ly clear. There is no heart failure. There is a small infiltrate in the medial posterior right lung b ase. Bones are osteopenic. IMPRESSION: No heart failure. Consolidation and pleural fluid in the left lower lobe is slightly wor se than yesterday. There is also increasing infiltrate in the medial posterior right lower lobe.
[2017-12-03] MEDS: LACTATED RINGERS 1,000 ML IV SCH ×2 (00:43→11:21)
[2017-12-03] MEDS: PIPERACILLIN-TAZOBACTAM 3.375 GM in DEXTROSE/WATER 1 50ML.BAG IVPB SCH ×3 (04:11→22:03)
[2017-12-03] MEDS: HYDROcodone/APAP 5-325MG 1 EACH TAB PO PRN (04:12)
[2017-12-03] MEDS: IPRATROPIUM-ALBUTEROL 3 ML NEB INHALATION SCH ×4 (07:16→20:40)
[2017-12-03 07:39] LABS: HCT 29.8 % (34.0-46.0); MCHC 31.3 g/dL (31.0-37.0); MCV 92.5 fL (80.0-100.0); Platelet Count 543 k/uL (150-450); RBC 3.22 m/uL (3.80-5.40); RDW 13.8 % (11.5-15.5); WBC 9.5 k/uL (3.8-10.6)
[2017-12-03 07:40] LABS: HGB 9.3 gm/dL (11.4-16.0)
[2017-12-03 07:48] LABS: Calcium 9.2 mg/dL (8.4-10.2); Potassium 3.8 mmol/L (3.5-5.1)
--- NOTE | 2017-12-03 08:25 | P.PN ---
Subjective Progress Note Date: 12/03/17 Principal diagnosis: Pneumonia with continuing care and history of toxic encephalopathy. This is an 87-year-old white female who is fairly well-known to my practice who has an underlying history of pneumonia. There is fever noted. The patient is on appropriate antibiotic at this time with Zosyn. No voiding difficulties otherwise stated. The patient complains of significant myalgia/bodyaches. No diarrhea noted. Objective - Vital Signs Vital signs: Vital Signs Temp 97.6 F 12/03/17 07:00 Pulse 80 12/03/17 07:28 Resp 16 12/03/17 07:00 BP 134/59 12/03/17 07:00 Pulse Ox 92 L 12/03/17 07:19 Intake & Output 12/02/17 12/03/17 12/03/17 18:59 06:59 18:59 Other: Voiding Method Bedside Commode Bedside Commode Incontinent Incontinent # Voids 3 3 - Constitutional General appearance: Present: average body habitus - EENT Eyes: Absent: abnormal pupil - Neck Neck: Absent: lymphadenopathy - Respiratory Respiratory: bilateral: diminished - Cardiovascular Rhythm: regular - Gastrointestinal General gastrointestinal: Present: soft. Absent: tenderness - Integumentary Integumentary Comment(s): Xerosis of skin is noted. Integumentary: Absent: cellulitis - Musculoskeletal Musculoskeletal: Present: generalized weakness - Psychiatric Psychiatric: Present: A&O x's 3, appropriate affect - Labs CBC & Chem 7: 12/03/17 07:04 12/03/17 07:04 Labs: Abnormal Lab Results - Last 24 Hours (Table) 12/02/17 12/03/17 12/03/17 Range/Units 07:53 07:04 07:04 RBC 3.22 L (3.80-5.40) m/uL Hgb 9.3 L D (11.4-16.0) gm/dL Hct 29.8 L (34.0-46.0) % Plt Count 543 H (150-450) k/uL Chloride 108 H (98-107) mmol/L Carbon Dioxide 20 L (22-30) mmol/L BUN 65 H 38 H (7-17) mg/dL Creatinine 1.55 H 1.23 H (0.52-1.04) mg/dL Glucose 102 H (74-99) mg/dL Magnesium 2.6 H (1.6-2.3) mg/dL Microbiology - Last 24 Hours (Table) 12/01/17 01:58 Blood Culture - Preliminary Blood No Growth after 48 hours 12/01/17 13:00 Urine Culture - Final Urine,Clean Catch Assessment and Plan (1) History of CVA (cerebrovascular accident) Current Visit: Yes Status: Acute Code(s): Z86.73 - PRSNL HX OF TIA (TIA), AND CEREB INFRC W/O RESID DEFICITS SNOMED Code(s): 583416316 (2) Dehydration Current Visit: Yes Status: Acute Code(s): E86.0 - DEHYDRATION SNOMED Code( s): 66693019 (3) Left lower lobe pneumonia Current Visit: Yes Status: Acute Code(s): J18.1 - LOBAR PNEUMONIA, UNSPECIFIED ORGANISM SNOMED Code(s): 180473818 (4) Weakness Current Visit: Yes Status: Acute Code(s): R53.1 - WEAKNESS SNOMED Code(s) : 92094886 (5) History of gout Current Visit: No Status: Acute Code(s): Z87.39 - PERSONAL HISTORY OF DISEASES OF THE MS SYS AND CONN TISS SNOMED Code(s): 063255974 (6) History of hypertension Current Visit: No Status: Acute Code(s): Z86.79 - PERSONAL HISTORY OF OTHER DISEASES OF THE CIRCULATORY SYSTEM SNOMED Code(s): 615860463 (7) Hypertension Current Visit: No Status: Acute Code(s): I10 - ESSENTIAL (PRIMARY) HYPERTENSION SNOMED Code(s): 01369269 (8) Multiple falls Current Visit: No Status: Acute Code(s): R29.6 - REPEATED FALLS SNOMED Code(s): 374499521 Plan: Continue current regimen of treatment. Continue DVT prophylaxis. Check CBC and CMP in a.m. Prognosis is guarded secondary to advanced age and multiple comorbidities. See orders otherwise.
[2017-12-03] MEDS: METOPROLOL TARTRATE 25 MG TAB PO SCH ×2 (08:52→20:33)
[2017-12-03] MEDS: ASPIRIN 81 MG PO SCH (08:52)
[2017-12-03] MEDS: PANTOPRAZOLE 40 MG TABLET PO SCH (08:52)
[2017-12-03] MEDS: GABAPENTIN 100 MG CAP PO SCH ×3 (08:52→22:00)
[2017-12-03] MEDS: ATORVASTATIN 40 MG TAB PO SCH (08:52)
[2017-12-03] MEDS: FAMOTIDINE 20 MG TAB PO SCH ×2 (08:52→20:33)
[2017-12-03] MEDS: HEPARIN SODIUM,PORCINE 5,000 UNIT/ML 1 ML VIAL SQ SCH ×2 (08:53→20:33)
--- NOTE | 2017-12-03 09:09 | XR ---
EXAMINATION TYPE: XR chest 1V DATE OF EXAM: 12/03/2017 COMPARISON: 07/21/2017 HISTORY: Shortness of breath TECHNIQUE: Single frontal view of the chest is obtained. FINDINGS: Left lower lobe consolidation and small effusion stable. Arthropathy of the shoulders. No pneumothorax. No interstitial edema. Atherosclerotic changes aorta. Chronic rib is noted. IMPRESSION: Stable left lower lobe infiltrate and small effusion.
[2017-12-03] MEDS: THIAMINE 100 MG TAB PO SCH (11:21)
[2017-12-03] MEDS: FOLIC ACID 1 MG TAB PO SCH (11:21)
--- NOTE | 2017-12-03 15:36 | CDI ---
Last Revision, September 2017 Documentation Clarification Form Date: 12/03/2017 3:05:00 PM From: Fabiola Jimenez Admit Date: 12/01/2017 4:04:00 AM Patient Name: Galina Gill Visit Number: [id number] ATTENTION: The Clinical Documentation Specialists (CDI) and [facility] Coding Staff appreciate your assistance in clarifying documentation. Please respond to the clarification below the line at the bottom and electronically sign. The CDI & [facility] Coding staff will review the response and follow-up if needed. Please note: Queries are made part of the Legal Health Record. If you have any questions, please contact the author of this message via ITS. Dr. Emiliano Johns 'Sepsis' is documented by Dr Womack in the H&P and the Progress Note on 12/02. History/Risk Factors: Recent Influenza Pneumonia Clinical Indicators: Labs on admission: wbc 12.2, bun 96, cr 2.30, gfr 20 Lactic acid on admission 1.0 Per the ED and H&P 'noted to have a blood pressure of 80 and 90 systolic initially'...'she was brought in by EMS' Per the H&P 'patient has altered mental status....which is improving at this time' Per the H&P 'patient also has worsening kidney function baseline creatinine around 0.8' Blood cultures: preliminary report shows 'no growth' Vitals signs on admission: temp 98.4, hr 91, rr 20, bp 142/62, sats 94% ra Treatment: Antibiotics: IV Levaquin now d/c'd, IV Zosyn IV fluids with Bolus x2 In your professional opinion, please clarify if these findings signify one of the following conditions, whether the condition is POA, and cause, if known: Sepsis ruled in Sepsis ruled out Severe Sepsis (Please link to associated organ failure) Septic Shock Other, please specify Unable to determine Present on Admission: Yes No Please continue to document in your progress notes and discharge summary in order to capture severity of illness and risk of mortality. Include clinical findings that support your diagnosis. the patient has sepsis secondary to pneumonia. MTDD
--- NOTE | 2017-12-03 15:50 | CDI ---
Last Revision, September 2017 Documentation Clarification Form Date: 12/03/2017 3:36:00 PM From: Fabiola Jimenez Admit Date: 12/01/2017 4:04:00 AM Patient Name: Galina Gill Visit Number: [id number] ATTENTION: The Clinical Documentation Specialists (CDI) and [facility] Coding Staff appreciate your assistance in clarifying documentation. Please respond to the clarification below the line at the bottom and electronically sign. The CDI & [facility] Coding staff will review the response and follow-up if needed. Please note: Queries are made part of the Legal Health Record. If you have any questions, please contact the author of this message via ITS. Dr. Emiliano Johns 'Acute renal dysfunction secondary to prerenal azotemia along with acute tubular necrosis from infection and sepsis' was documented in the H&P and the Progress note on 12/[address] Womack. History/Risk Factors: Recent Influenza Pneumonia Nephrotoxic agents: lisinopril hydrochlorothiazide, antidepressive meds Clinical Indicators: Labs on admission: bun 96, cr 2.30, gfr 20 Labs on 12/03: Bun 38, Cr 1.23, GFR 41 Per the ED and H&P 'noted to have a blood pressure of 80 and 90 systolic initially'...'she was brought in by EMS' Per the H&P 'patient also has worsening kidney function baseline creatinine around 0.8 Vitals signs on admission: temp 98.4, hr 91, rr 20, bp 142/62, sats 94% ra Treatment: IV fluids with Bolus x2 Nephrotoxic meds held per H&P and Progress note by Dr Womack on 12/02 In order to capture the severity of condition, please clarify if the condition signifies: Acute renal failure ruled in With Acute Tubular Necrosis? Acute renal failure ruled out Acute on Chronic renal failure (please stage CKD) Other, please specify Unable to determine Please continue to document in your progress notes and discharge summary in order to capture severity of illness and risk of mortality. Include clinical findings that support your diagnosis. Could you add that the patient has acute renal failure crosis related to prerenal azotemia. MTDD
[2017-12-04] MEDS: LACTATED RINGERS 1,000 ML IV SCH ×2 (05:12→16:21)
[2017-12-04] MEDS: PIPERACILLIN-TAZOBACTAM 3.375 GM in DEXTROSE/WATER 1 50ML.BAG IVPB SCH ×3 (06:07→23:14)
[2017-12-04] MEDS: IPRATROPIUM-ALBUTEROL 3 ML NEB INHALATION SCH ×4 (08:06→20:05)
[2017-12-04] MEDS: ATORVASTATIN 40 MG TAB PO SCH (08:25)
[2017-12-04] MEDS: PANTOPRAZOLE 40 MG TABLET PO SCH (08:25)
[2017-12-04] MEDS: ASPIRIN 81 MG PO SCH (08:25)
[2017-12-04] MEDS: HEPARIN SODIUM,PORCINE 5,000 UNIT/ML 1 ML VIAL SQ SCH ×2 (08:26→21:09)
[2017-12-04] MEDS: GABAPENTIN 100 MG CAP PO SCH ×3 (08:26→21:09)
[2017-12-04] MEDS: METOPROLOL TARTRATE 25 MG TAB PO SCH ×2 (08:26→21:09)
[2017-12-04] MEDS: FAMOTIDINE 20 MG TAB PO SCH ×2 (08:26→21:09)
[2017-12-04] MEDS: traMADol 50 MG TAB PO PRN (08:52)
[2017-12-04 09:03] LABS: ALT 26 U/L (9-52); AST 35 U/L (14-36); Albumin 2.7 g/dL (3.5-5.0); Alkaline Phosphatase 109 U/L (38-126); Anion Gap 10 mmol/L; Blood Urea Nitrogen 23 mg/dL (7-17); Calcium 8.9 mg/dL (8.4-10.2); Carbon Dioxide 24 mmol/L (22-30); Chloride 108 mmol/L (98-107); Glucose 82 mg/dL (74-99); Sodium 142 mmol/L (137-145); Total Bilirubin 0.9 mg/dL (0.2-1.3); Total Protein 5.5 g/dL (6.3-8.2)
[2017-12-04 09:09] LABS: Potassium 4.6 mmol/L (3.5-5.1)
[2017-12-04 09:16] LABS: MCH 29.5 pg (25.0-35.0); MCHC 32.4 g/dL (31.0-37.0); MCV 91.1 fL (80.0-100.0); Mean Platelet Volume 7.8; Platelet Count 480 k/uL (150-450); RDW 12.9 % (11.5-15.5); WBC 11.2 k/uL (3.8-10.6)
[2017-12-04] MEDS: FOLIC ACID 1 MG TAB PO SCH (13:15)
[2017-12-04] MEDS: THIAMINE 100 MG TAB PO SCH (13:15)
--- NOTE | 2017-12-04 19:09 | P.PN ---
Subjective Principal diagnosis: Continuing CARE This is a continue proximal on a 87-year-old white female with history of CVA who is coming in with significant left lower lobe pneumonia. The patient seems weaker today and her speech seems somewhat slurred however, she is understanding me appropriately and when queried, answers commands appropriately without actually slurring. I suspect she is having significant weakness. Objective - Vital Signs Vital signs: Vital Signs Temp 98.1 F 12/04/17 15:00 Pulse 67 12/04/17 15:00 Resp 16 12/04/17 15:00 BP 161/64 12/04/17 15:00 Pulse Ox 95 12/04/17 15:00 Intake & Output 12/04/17 12/04/17 12/05/17 06:59 18:59 06:59 Intake Total 960 Balance 960 Intake: Oral 960 Other: Voiding Method Bedside Commode Bedside Commode Incontinent Incontinent # Voids 2 1 # Bowel Movements 1 - Constitutional General appearance: Present: average body habitus - EENT Eyes: Absent: abnormal pupil - Respiratory Respiratory: bilateral: diminished - Cardiovascular Rhythm: regular Heart sounds: normal: S1, S2 - Gastrointestinal General gastrointestinal: Absent: tenderness - Integumentary Integumentary: Present: cellulitis - Musculoskeletal Musculoskeletal: Present: generalized weakness - Labs CBC & Chem 7: 12/04/17 08:03 12/04/17 08:03 Labs: Abnormal Lab Results - Last 24 Hours (Table) 12/04/17 12/04/17 Range/Units 08:03 08:03 WBC 11.2 H (3.8-10.6) k/uL RBC 3.40 L (3.80-5.40) m/uL Hgb 10.0 L (11.4-16.0) gm/dL Hct 31.0 L (34.0-46.0) % Plt Count 480 H (150-450) k/uL Chloride 108 H (98-107) mmol/L BUN 23 H (7-17) mg/dL Total Protein 5.5 L (6.3-8.2) g/dL Albumin 2.7 L (3.5-5.0) g/dL Microbiology - Last 24 Hours (Table) 12/01/17 01:58 Blood Culture - Preliminary Blood No Growth after 72 hours Assessment and Plan (1) History of CVA (cerebrovascular accident) Current Visit: Yes Status: Acute Code(s): Z86.73 - PRSNL HX OF TIA (TIA), AND CEREB INFRC W/O RESID DEFICITS SNOMED Code(s): 995244615 (2) Dehydration Current Visit: Yes Status: Acute Code(s): E86.0 - DEHYDRATION SNOMED Code( s): 30817152 (3) Left lower lobe pneumonia Current Visit: Yes Status: Acute Code(s): J18.1 - LOBAR PNEUMONIA, UNSPECIFIED ORGANISM SNOMED Code(s): 215923996 (4) Weakness Current Visit: Yes Status: Acute Code(s): R53.1 - WEAKNESS SNOMED Code(s) : 04737829 (5) History of gout Current Visit: No Status: Acute Code(s): Z87.39 - PERSONAL HISTORY OF DISEASES OF THE MS SYS AND CONN TISS SNOMED Code(s): 542591981 (6) History of hypertension Current Visit: No Status: Acute Code(s): Z86.79 - PERSONAL HISTORY OF OTHER DISEASES OF THE CIRCULATORY SYSTEM SNOMED Code(s): 300036899 (7) Hypertension Current Visit: No Status: Acute Code(s): I10 - ESSENTIAL (PRIMARY) HYPERTENSION SNOMED Code(s): 44711572 (8) Multiple falls Current Visit: No Status: Acute Code(s): R29.6 - REPEATED FALLS SNOMED Code(s): 908742386 Plan: Prerenal azotemia seems to be improving. Hemoglobin is now stabilizing. If mental state seems to be fluctuating, recheck for TIA element. Continue IV hydration with appropriate antibiotic treatment. Element of sepsis which is present on admission. Check CBC and CMP in a.m. Time with Patient: Less than 30
[2017-12-05] MEDS: traMADol 50 MG TAB PO PRN ×3 (04:47→17:20)
[2017-12-05] MEDS: PIPERACILLIN-TAZOBACTAM 3.375 GM in DEXTROSE/WATER 1 50ML.BAG IVPB SCH ×3 (06:53→22:39)
[2017-12-05] MEDS: LACTATED RINGERS 1,000 ML IV SCH ×2 (06:53→22:39)
[2017-12-05] MEDS: IPRATROPIUM-ALBUTEROL 3 ML NEB INHALATION SCH ×4 (08:01→20:09)
[2017-12-05] MEDS: GABAPENTIN 100 MG CAP PO SCH ×3 (08:40→22:38)
[2017-12-05] MEDS: PANTOPRAZOLE 40 MG TABLET PO SCH (08:40)
[2017-12-05] MEDS: ASPIRIN 81 MG PO SCH (08:40)
[2017-12-05] MEDS: FAMOTIDINE 20 MG TAB PO SCH (08:40)
[2017-12-05] MEDS: METOPROLOL TARTRATE 25 MG TAB PO SCH ×2 (08:40→22:36)
[2017-12-05] MEDS: HEPARIN SODIUM,PORCINE 5,000 UNIT/ML 1 ML VIAL SQ SCH ×2 (08:40→22:38)
[2017-12-05] MEDS: ATORVASTATIN 40 MG TAB PO SCH (08:40)
[2017-12-05 09:04] LABS: HCT 31.5 % (34.0-46.0); HGB 9.9 gm/dL (11.4-16.0); MCH 28.6 pg (25.0-35.0); MCHC 31.6 g/dL (31.0-37.0); MCV 90.6 fL (80.0-100.0); Mean Platelet Volume 6.5; Platelet Count 587 k/uL (150-450); RBC 3.48 m/uL (3.80-5.40); RDW 12.9 % (11.5-15.5); WBC 10.6 k/uL (3.8-10.6)
[2017-12-05 09:28] LABS: ALT 27 U/L (9-52); AST 29 U/L (14-36); Albumin 2.6 g/dL (3.5-5.0); Alkaline Phosphatase 140 U/L (38-126); Anion Gap 11 mmol/L; Blood Urea Nitrogen 14 mg/dL (7-17); Calcium 8.9 mg/dL (8.4-10.2); Carbon Dioxide 25 mmol/L (22-30); Chloride 105 mmol/L (98-107); Glucose 87 mg/dL (74-99); Potassium 3.5 mmol/L (3.5-5.1); Sodium 141 mmol/L (137-145); Total Bilirubin 0.6 mg/dL (0.2-1.3); Total Protein 5.2 g/dL (6.3-8.2)
[2017-12-05] MEDS: THIAMINE 100 MG TAB PO SCH (11:11)
[2017-12-05] MEDS: FOLIC ACID 1 MG TAB PO SCH (11:11)
[2017-12-06] MEDS: PIPERACILLIN-TAZOBACTAM 3.375 GM in DEXTROSE/WATER 1 50ML.BAG IVPB SCH ×3 (07:06→22:43)
[2017-12-06] MEDS: IPRATROPIUM-ALBUTEROL 3 ML NEB INHALATION SCH ×4 (07:09→20:47)
--- NOTE | 2017-12-06 08:58 | P.PN ---
Subjective Principal diagnosis: Continuing CARE This is a continue proximal on a 87-year-old white female with history of CVA who is coming in with significant left lower lobe pneumonia. The patient seems weaker today and her speech seems somewhat slurred however, she is understanding me appropriately and when queried, answers commands appropriately without actually slurring. I suspect she is having significant weakness. Objective - Vital Signs Vital signs: Vital Signs Temp 97.4 F L 12/06/17 07:00 Pulse 73 12/06/17 07:00 Resp 16 12/06/17 07:00 BP 178/78 12/06/17 07:00 Pulse Ox 95 12/06/17 07:00 Intake & Output 12/05/17 12/06/17 12/06/17 18:59 06:59 18:59 Intake Total 830 850 Balance 830 850 Intake: IV 350 850 Lactated Ringers 1,000 ml 300 800 @ 75 mls/hr IV .[id number] [facility] Rx#:[id number] Piperacillin-Tazobactam 3 50 50 .375 gm In Dextrose/Water 1 50ml.bag @ 12.5 mls/hr IVPB Q8H [facility] Rx#: [id number] Oral 480 Other: Voiding Method Bedside Commode Bedpan Incontinent Diaper Incontinent # Voids 2 2 1 - Constitutional General appearance: Present: average body habitus - EENT Eyes: Absent: abnormal pupil - Respiratory Respiratory: bilateral: diminished - Cardiovascular Rhythm: regular Heart sounds: normal: S1, S2 - Gastrointestinal General gastrointestinal: Absent: tenderness - Psychiatric Psychiatric: Present: A&O x's 3 - Labs CBC & Chem 7: 12/05/17 08:38 12/05/17 08:38 Labs: Abnormal Lab Results - Last 24 Hours (Table) 12/05/17 12/05/17 Range/Units 08:38 08:38 RBC 3.48 L (3.80-5.40) m/uL Hgb 9.9 L (11.4-16.0) gm/dL Hct 31.5 L (34.0-46.0) % Plt Count 587 H (150-450) k/uL Alkaline Phosphatase 140 H (38-126) U/L Total Protein 5.2 L (6.3-8.2) g/dL Albumin 2.6 L (3.5-5.0) g/dL Microbiology - Last 24 Hours (Table) 12/01/17 01:58 Blood Culture - Preliminary Blood No Growth after 120 hours Assessment and Plan (1) History of CVA (cerebrovascular accident) Current Visit: Yes Status: Acute Code(s): Z86.73 - PRSNL HX OF TIA (TIA), AND CEREB INFRC W/O RESID DEFICITS SNOMED Code(s): 573129304 (2) Dehydration Current Visit: Yes Status: Acute Code(s): E86.0 - DEHYDRATION SNOMED Code( s): 80342804 (3) Left lower lobe pneumonia Current Visit: Yes Status: Acute Code(s): J18.1 - LOBAR PNEUMONIA, UNSPECIFIED ORGANISM SNOMED Code(s): 121595929 (4) Weakness Current Visit: Yes Status: Acute Code(s): R53.1 - WEAKNESS SNOMED Code(s) : 96066312 (5) History of gout Current Visit: No Status: Acute Code(s): Z87.39 - PERSONAL HISTORY OF DISEASES OF THE MS SYS AND CONN TISS SNOMED Code(s): 958717114 (6) History of hypertension Current Visit: No Status: Acute Code(s): Z86.79 - PERSONAL HISTORY OF OTHER DISEASES OF THE CIRCULATORY SYSTEM SNOMED Code(s): 876032169 (7) Hypertension Current Visit: No Status: Acute Code(s): I10 - ESSENTIAL (PRIMARY) HYPERTENSION SNOMED Code(s): 02084094 (8) Multiple falls Current Visit: No Status: Acute Code(s): R29.6 - REPEATED FALLS SNOMED Code(s): 691629533 Plan: The patient is slowly improving but because of her history of CVA is significantly weak. Possibly get therapy to start increasing ambulation. Check CBC and CMP in a.m. Prognosis is guarded. Time with Patient: Less than 30
[2017-12-06] MEDS: HEPARIN SODIUM,PORCINE 5,000 UNIT/ML 1 ML VIAL SQ SCH ×2 (09:10→21:07)
[2017-12-06] MEDS: ATORVASTATIN 40 MG TAB PO SCH (09:11)
[2017-12-06] MEDS: GABAPENTIN 100 MG CAP PO SCH ×3 (09:11→22:42)
[2017-12-06] MEDS: ASPIRIN 81 MG PO SCH (09:11)
[2017-12-06] MEDS: LACTATED RINGERS 1,000 ML IV SCH ×2 (09:11→22:43)
[2017-12-06] MEDS: METOPROLOL TARTRATE 25 MG TAB PO SCH ×2 (09:11→20:32)
[2017-12-06] MEDS: FAMOTIDINE 20 MG TAB PO SCH (09:11)
[2017-12-06] MEDS: THIAMINE 100 MG TAB PO SCH (09:11)
[2017-12-06] MEDS: FOLIC ACID 1 MG TAB PO SCH (09:11)
[2017-12-06] MEDS: PANTOPRAZOLE 40 MG TABLET PO SCH (09:11)
[2017-12-06] MEDS: traMADol 50 MG TAB PO PRN (22:42)
[2017-12-07] MEDS: PIPERACILLIN-TAZOBACTAM 3.375 GM in DEXTROSE/WATER 1 50ML.BAG IVPB SCH ×3 (06:35→23:04)
[2017-12-07] MEDS: IPRATROPIUM-ALBUTEROL 3 ML NEB INHALATION SCH ×4 (07:25→20:16)
[2017-12-07] MEDS: HEPARIN SODIUM,PORCINE 5,000 UNIT/ML 1 ML VIAL SQ SCH ×2 (08:29→20:30)
[2017-12-07] MEDS: PANTOPRAZOLE 40 MG TABLET PO SCH (08:29)
[2017-12-07] MEDS: ATORVASTATIN 40 MG TAB PO SCH (08:30)
[2017-12-07] MEDS: METOPROLOL TARTRATE 25 MG TAB PO SCH ×2 (08:30→20:29)
[2017-12-07] MEDS: ASPIRIN 81 MG PO SCH (08:30)
[2017-12-07] MEDS: GABAPENTIN 100 MG CAP PO SCH ×3 (08:30→21:13)
[2017-12-07] MEDS: FAMOTIDINE 20 MG TAB PO SCH (08:30)
--- NOTE | 2017-12-07 08:33 | P.PN ---
Subjective Principal diagnosis: Continuing CARE . The patient has history of CVA and is complaining of significant soreness and pain area and she seems uncomfortable and is keeping her eyes closed. No plates voiding difficulties. Objective - Vital Signs Vital signs: Vital Signs Temp 96.7 F L 12/07/17 07:00 Pulse 80 12/07/17 07:39 Resp 18 12/07/17 07:00 BP 183/80 12/07/17 07:00 Pulse Ox 95 12/07/17 07:28 Intake & Output 12/06/17 12/07/17 12/07/17 18:59 06:59 18:59 Intake Total 1410 Balance 1410 Weight 51.5 kg Intake: IV 650 Lactated Ringers 1,000 ml 600 @ 75 mls/hr IV .[id number] [facility] Rx#:[id number] Piperacillin-Tazobactam 3 50 .375 gm In Dextrose/Water 1 50ml.bag @ 12.5 mls/hr IVPB Q8H [facility] Rx#: [id number] Oral 760 Other: Voiding Method Diaper Incontinent # Voids 2 3 - Constitutional General appearance: Present: average body habitus - EENT Eyes: Absent: abnormal pupil - Neck Neck: Absent: lymphadenopathy - Respiratory Respiratory: bilateral: CTA - Cardiovascular Rhythm: regular - Gastrointestinal General gastrointestinal: Present: soft. Absent: tenderness - Neurologic Neurologic: Present: CNII-XII intact - Musculoskeletal Musculoskeletal: Present: generalized weakness - Labs CBC & Chem 7: 12/05/17 08:38 12/05/17 08:38 Labs: Microbiology - Last 24 Hours (Table) 12/01/17 01:58 Blood Culture - Final Blood No Growth after 144 hours Assessment and Plan (1) History of CVA (cerebrovascular accident) Current Visit: Yes Status: Acute Code(s): Z86.73 - PRSNL HX OF TIA (TIA), AND CEREB INFRC W/O RESID DEFICITS SNOMED Code(s): 055495110 (2) Dehydration Current Visit: Yes Status: Acute Code(s): E86.0 - DEHYDRATION SNOMED Code( s): 62877322 (3) Left lower lobe pneumonia Current Visit: Yes Status: Acute Code(s): J18.1 - LOBAR PNEUMONIA, UNSPECIFIED ORGANISM SNOMED Code(s): 652226556 (4) Weakness Current Visit: Yes Status: Acute Code(s): R53.1 - WEAKNESS SNOMED Code(s) : 30991775 (5) History of gout Current Visit: No Status: Acute Code(s): Z87.39 - PERSONAL HISTORY OF DISEASES OF THE MS SYS AND CONN TISS SNOMED Code(s): 889104786 (6) History of hypertension Current Visit: No Status: Acute Code(s): Z86.79 - PERSONAL HISTORY OF OTHER DISEASES OF THE CIRCULATORY SYSTEM SNOMED Code(s): 984692052 (7) Hypertension Current Visit: No Status: Acute Code(s): I10 - ESSENTIAL (PRIMARY) HYPERTENSION SNOMED Code(s): 61178445 (8) Multiple falls Current Visit: No Status: Acute Code(s): R29.6 - REPEATED FALLS SNOMED Code(s): 415064352 Plan: Continue current regimen of treatment. Check CBC and CMP in a.m. We'll go ahead and do follow-up chest x-ray today. Gen. debility is slowly improving. [place] pain control. See orders otherwise.
[2017-12-07] MEDS: THIAMINE 100 MG TAB PO SCH (13:11)
[2017-12-07] MEDS: FOLIC ACID 1 MG TAB PO SCH (13:11)
[2017-12-07] MEDS: LACTATED RINGERS 1,000 ML IV SCH (13:12)
[2017-12-08] MEDS: LACTATED RINGERS 1,000 ML IV SCH ×2 (05:56→16:38)
[2017-12-08] MEDS: HEPARIN SODIUM,PORCINE 5,000 UNIT/ML 1 ML VIAL SQ SCH ×2 (08:15→20:01)
[2017-12-08] MEDS: PIPERACILLIN-TAZOBACTAM 3.375 GM in DEXTROSE/WATER 1 50ML.BAG IVPB SCH ×3 (08:15→23:07)
[2017-12-08] MEDS: FAMOTIDINE 20 MG TAB PO SCH (08:15)
[2017-12-08] MEDS: GABAPENTIN 100 MG CAP PO SCH ×3 (08:15→20:02)
[2017-12-08] MEDS: ATORVASTATIN 40 MG TAB PO SCH (08:15)
[2017-12-08] MEDS: ASPIRIN 81 MG PO SCH (08:15)
[2017-12-08] MEDS: PANTOPRAZOLE 40 MG TABLET PO SCH (08:15)
[2017-12-08] MEDS: METOPROLOL TARTRATE 25 MG TAB PO SCH ×2 (08:16→20:01)
[2017-12-08] MEDS: IPRATROPIUM-ALBUTEROL 3 ML NEB INHALATION SCH ×4 (08:45→20:32)
[2017-12-08] MEDS: THIAMINE 100 MG TAB PO SCH (11:58)
[2017-12-08] MEDS: FOLIC ACID 1 MG TAB PO SCH (11:58)
[2017-12-09] MEDS: traMADol 50 MG TAB PO PRN (00:45)
[2017-12-09] MEDS: LACTATED RINGERS 1,000 ML IV SCH ×2 (05:28→17:23)
[2017-12-09] MEDS: PIPERACILLIN-TAZOBACTAM 3.375 GM in DEXTROSE/WATER 1 50ML.BAG IVPB SCH ×2 (06:09→17:23)
[2017-12-09] MEDS: IPRATROPIUM-ALBUTEROL 3 ML NEB INHALATION SCH ×4 (07:36→20:39)
[2017-12-09] MEDS: HEPARIN SODIUM,PORCINE 5,000 UNIT/ML 1 ML VIAL SQ SCH ×2 (08:32→20:54)
[2017-12-09] MEDS: PANTOPRAZOLE 40 MG TABLET PO SCH (08:32)
[2017-12-09] MEDS: ATORVASTATIN 40 MG TAB PO SCH (08:33)
[2017-12-09] MEDS: FAMOTIDINE 20 MG TAB PO SCH (08:33)
[2017-12-09] MEDS: ASPIRIN 81 MG PO SCH (08:33)
[2017-12-09] MEDS: GABAPENTIN 100 MG CAP PO SCH ×3 (08:33→20:54)
[2017-12-09] MEDS: METOPROLOL TARTRATE 25 MG TAB PO SCH ×2 (08:33→20:54)
[2017-12-09 09:16] LABS: Anion Gap 15 mmol/L; Blood Urea Nitrogen 8 mg/dL (7-17); Calcium 8.7 mg/dL (8.4-10.2); Carbon Dioxide 22 mmol/L (22-30); Chloride 106 mmol/L (98-107); Glucose 67 mg/dL (74-99); Sodium 143 mmol/L (137-145)
[2017-12-09 09:24] LABS: Basophils % (A) 0 %; Eosinophils # (A) 0.2 k/uL (0-0.7); Eosinophils % (A) 2 %; HCT 30.7 % (34.0-46.0); HGB 9.5 gm/dL (11.4-16.0); Lymphocytes % (A) 26 %; MCH 28.8 pg (25.0-35.0); MCHC 31.1 g/dL (31.0-37.0); MCV 92.6 fL (80.0-100.0); Mean Platelet Volume 6.8; Monocytes # (A) 0.5 k/uL (0-1.0); Monocytes % (A) 4 %; Neutrophils # (A) 7.8 k/uL (1.3-7.7); Neutrophils % (A) 67 %; Platelet Count 522 k/uL (150-450); RBC 3.31 m/uL (3.80-5.40); RDW 13.4 % (11.5-15.5); WBC 11.6 k/uL (3.8-10.6)
[2017-12-09] MEDS: FOLIC ACID 1 MG TAB PO SCH (11:27)
[2017-12-09] MEDS: POTASSIUM CHLORIDE ER 20 MEQ TAB.ER PO SCH ×3 (11:27→17:28)
[2017-12-09] MEDS: THIAMINE 100 MG TAB PO SCH (11:27)
--- NOTE | 2017-12-09 18:00 | P.PN ---
Subjective Progress Note Date: 12/08/17 Principal diagnosis: Left lower lobe pneumonia Patient is a 87-year-old female with known history of previous CVA was admitted to the hospital with generalized weakness and found have left lower lobe pneumonia currently on IV antibiotics with Zosyn. 12/08/2017 Patient is lying in the bed comfortably. Complains of nausea and not able to tolerate oral diet. No fever no chills. No acute overnight issues. Complete review of systems could not be apparent from the patient Current medications reviewed Objective - Vital Signs Vital signs: Vital Signs Temp 98.5 F 12/08/17 15:00 Pulse 80 12/08/17 20:33 Resp 20 12/08/17 15:00 BP 155/59 12/08/17 15:00 Pulse Ox 95 12/08/17 15:00 Intake & Output 12/08/17 12/08/17 12/09/17 06:59 18:59 06:59 Intake Total 400 0 Balance 400 0 Intake: Oral 400 0 Other: Voiding Method Diaper Diaper Incontinent Incontinent # Voids 1 2 - Exam PHYSICAL EXAMINATION: Patient is lying in the bed comfortably, no acute distress, awake alert and oriented. Lethargic and drowsy. HEENT: Normocephalic. Neck is supple. Pupils reactive. Nostrils clear. Oral cavity is moist. Ears reveal no drainage. Neck reveals no JVD, carotid bruits, or thyromegaly. CHEST EXAMINATION: Trachea is central. Symmetrical expansion. Left basilar crackles. No wheezing. Diminished breath sounds bilateral basilar CARDIAC: Normal S1, S2 with no gallops. No murmurs ABDOMEN: Soft. Bowel sounds normal. No organomegaly. No abdominal bruits. Extremities: reveal no edema. No clubbing or cyanosis Neurologically awake, alert, oriented x3 with well-coordinated movements. No focal deficits noted Skin: No rash or skin lesions. Psychiatric: Coperative. Nonsuicidal Musculoskeletal: No joint swelling or deformity. Normal range of motion. - Labs CBC & Chem 7: 12/09/17 08:33 12/09/17 08:33 Assessment and Plan Assessment: - Acute left lower lobe pneumonia with possible sepsis -Toxic encephalopathy from sepsis improving at this time with IV antibiotics -Acute renal dysfunction secondary to prerenal azotemia along with acute tubular necrosis from infection and sepsis. Avoid nephrotoxic medications -Hypomagnesemia magnesium will be supplemented -Hypertension -Osteoarthritis -History of multiple falls - Gout - Generalized weakness - History of CVA Plan: Patient will be continued on IV hydration with ringer lactate. Antibiotics in the form of Zosyn. Replace electrolyte. Encourage oral intake. Monitor blood pressure. Further recommendations based on the clinical course. Time with Patient: Greater than 30
--- NOTE | 2017-12-09 18:03 | P.PN ---
Subjective Progress Note Date: 12/09/17 Principal diagnosis: Left lower lobe pneumonia Patient is a 87-year-old female with known history of previous CVA was admitted to the hospital with generalized weakness and found have left lower lobe pneumonia currently on IV antibiotics with Zosyn. 12/08/2017 Patient is lying in the bed comfortably. Complains of nausea and not able to tolerate oral diet. No fever no chills. No acute overnight issues. Complete review of systems could not be apparent from the patient. 12/09/2017 Patient is unable to tolerate oral diet. Complains of nausea. Otherwise patient is refusing IV line to be placed. Refusing medications as well. Patient does have lobe admission and potassium. Patient has been lethargic and refusing medications. Complete review of systems could not be obtained from the patient Current medications reviewed Objective - Vital Signs Vital signs: Vital Signs Temp 97.6 F 12/09/17 15:00 Pulse 71 12/09/17 15:00 Resp 16 12/09/17 15:00 BP 169/81 12/09/17 15:00 Pulse Ox 93 L 12/09/17 15:00 Intake & Output 12/08/17 12/09/17 12/09/17 18:59 06:59 18:59 Intake Total 0 200 Output Total 1 Balance 0 199 Intake: Oral 0 200 Output: Urine/Stool Mix 1 Other: Voiding Method Diaper Diaper Diaper Incontinent Incontinent Incontinent # Voids 2 2 4 # Bowel Movements 1 1 - Exam PHYSICAL EXAMINATION: Patient is lying in the bed comfortably, no acute distress, awake alert and oriented. Lethargic and drowsy. HEENT: Normocephalic. Neck is supple. Pupils reactive. Nostrils clear. Oral cavity is moist. Ears reveal no drainage. Neck reveals no JVD, carotid bruits, or thyromegaly. CHEST EXAMINATION: Trachea is central. Symmetrical expansion. Left basilar crackles. No wheezing. Diminished breath sounds bilateral basilar CARDIAC: Normal S1, S2 with no gallops. No murmurs ABDOMEN: Soft. Bowel sounds normal. No organomegaly. No abdominal bruits. Extremities: reveal no edema. No clubbing or cyanosis Neurologically awake, alert, oriented x3 with well-coordinated movements. No focal deficits noted Skin: No rash or skin lesions. Psychiatric: Coperative. Nonsuicidal Musculoskeletal: No joint swelling or deformity. Normal range of motion. - Labs CBC & Chem 7: 12/09/17 08:33 12/09/17 08:33 Labs: Abnormal Lab Results - Last 24 Hours (Table) 12/09/17 12/09/17 12/09/17 Range/Units 08:33 08:33 08:33 WBC 11.6 H (3.8-10.6) k/uL RBC 3.31 L (3.80-5.40) m/uL Hgb 9.5 L (11.4-16.0) gm/dL Hct 30.7 L (34.0-46.0) % Plt Count 522 H (150-450) k/uL Neutrophils # 7.8 H (1.3-7.7) k/uL Potassium 3.0 L* (3.5-5.1) mmol/L Glucose 67 L (74-99) mg/dL Magnesium 1.3 L (1.6-2.3) mg/dL Assessment and Plan Assessment: - Acute left lower lobe pneumonia with possible sepsis -Toxic encephalopathy from sepsis improving at this time with IV antibiotics -Acute renal dysfunction. Improved. secondary to prerenal azotemia along with acute tubular necrosis from infection and sepsis. Avoid nephrotoxic medications -Hypomagnesemia magnesium will be supplemented -Hypertension . Uncontrolled -Osteoarthritis -History of multiple falls - Gout - Generalized weakness - History of CVA Plan: Patient will be continued on IV hydration with ringer lactate. Antibiotics in the form of Zosyn. Replace electrolyte. Encourage oral intake. Started back on lisinopril 20 mg daily. PT OT and possible transfer to extended care facility. Monitor blood pressure. Further recommendations based on the clinical course. Time with Patient: Greater than 30
[2017-12-09] MEDS: LISINOPRIL 20 MG TAB PO SCH (18:39)
[2017-12-09] MEDS: ONDANSETRON ODT 4 MG TAB PO PRN (18:40)
[2017-12-09] MEDS: MAGNESIUM OXIDE 400 MG TAB PO SCH (20:53)
[2017-12-09] MEDS ORDERED: AMOXIC-POT CLAV 875-125MG 1 EACH TAB PO SCH (22:45)
[2017-12-10 04:10] LABS: Glucose,Whole Blood 80 mg/dL (75-99)
[2017-12-10] MEDS: LACTATED RINGERS 1,000 ML IV SCH (05:12)
[2017-12-10] MEDS: traMADol 50 MG TAB PO PRN (05:13)
[2017-12-10] MEDS: ONDANSETRON ODT 4 MG TAB PO PRN (06:21)
[2017-12-10 07:00] VITALS: TEMP 97.8
[2017-12-10] MEDS ORDERED: SODIUM CHLORIDE 0.9% 1,000 ML IV SCH (07:30)
[2017-12-10] MEDS: IPRATROPIUM-ALBUTEROL 3 ML NEB INHALATION SCH ×3 (07:54→15:27)
[2017-12-10] MEDS ORDERED: Potassium Replacement Protocol 1 EACH MISC MISCELLANE PRN (07:57)
--- NOTE | 2017-12-10 08:04 | P.PN ---
Subjective Principal diagnosis: Altered mental status This is a continue present 87-year-old white female essentially admitted for pneumonia. This morning she's taken a turn for the worse as far as her mental status. She's now shaking. She's refused IVs, but we've been able to access IV access. She's had hypomagnesemia and hypokalemia yesterday. We will go ahead and check CBC, CMP with d-dimer and cardiac enzymes. I had a short discussion with the son and notified him of her change in status. Pulmonology will be consulted. She seems to be tremulous this morning and not responding to commands. Objective - Vital Signs Vital signs: Vital Signs Temp 97.8 F 12/10/17 07:00 Pulse 124 H 12/10/17 07:55 Resp 20 12/10/17 07:55 BP 125/57 12/10/17 07:00 Pulse Ox 94 L 12/10/17 07:55 Intake & Output 12/09/17 12/10/17 12/10/17 18:59 06:59 18:59 Other: Voiding Method Diaper Diaper Incontinent Incontinent # Voids 4 4 # Bowel Movements 1 2 - Constitutional General appearance: Present: mild distress. Absent: cooperative - EENT ENT: Absent: hard of hearing - Respiratory Respiratory: bilateral: diminished - Cardiovascular Rhythm: regular Heart sounds: normal: S1, S2 - Gastrointestinal General gastrointestinal: Present: soft. Absent: tenderness - Neurologic Neurologic Comment(s): Unable to follow commands. - Psychiatric Psychiatric: Absent: A&O x's 3, appropriate affect - Labs CBC & Chem 7: 12/09/17 08:33 12/09/17 08:33 Labs: Abnormal Lab Results - Last 24 Hours (Table) 12/09/17 12/09/17 12/09/17 Range/Units 08:33 08:33 08:33 WBC 11.6 H (3.8-10.6) k/uL RBC 3.31 L (3.80-5.40) m/uL Hgb 9.5 L (11.4-16.0) gm/dL Hct 30.7 L (34.0-46.0) % Plt Count 522 H (150-450) k/uL Neutrophils # 7.8 H (1.3-7.7) k/uL Potassium 3.0 L* (3.5-5.1) mmol/L Glucose 67 L (74-99) mg/dL Magnesium 1.3 L (1.6-2.3) mg/dL Assessment and Plan (1) History of CVA (cerebrovascular accident) Current Visit: Yes Status: Acute Code(s): Z86.73 - PRSNL HX OF TIA (TIA), AND CEREB INFRC W/O RESID DEFICITS SNOMED Code(s): 811985702 (2) Dehydration Current Visit: Yes Status: Acute Code(s): E86.0 - DEHYDRATION SNOMED Code( s): 15255091 (3) Left lower lobe pneumonia Current Visit: Yes Status: Acute Code(s): J18.1 - LOBAR PNEUMONIA, UNSPECIFIED ORGANISM SNOMED Code(s): 663029245 (4) Weakness Current Visit: Yes Status: Acute Code(s): R53.1 - WEAKNESS SNOMED Code(s) : 46636934 (5) History of gout Current Visit: No Status: Acute Code(s): Z87.39 - PERSONAL HISTORY OF DISEASES OF THE MS SYS AND CONN TISS SNOMED Code(s): 469641895 (6) History of hypertension Current Visit: No Status: Acute Code(s): Z86.79 - PERSONAL HISTORY OF OTHER DISEASES OF THE CIRCULATORY SYSTEM SNOMED Code(s): 577550273 (7) Hypertension Current Visit: No Status: Acute Code(s): I10 - ESSENTIAL (PRIMARY) HYPERTENSION SNOMED Code(s): 62286175 (8) Multiple falls Current Visit: No Status: Acute Code(s): R29.6 - REPEATED FALLS SNOMED Code(s): 746444358 Plan: Due to her altered mental status changes, check electrolytes with blood cultures. Check CBC, CMP with CK-MB and troponin. EKG to ordered. We'll go ahead and consult pulmonology to assist. Discussion with son this morning, he is agreeable to do workup. Supplement potassium and magnesium. Prognosis is guarded. Time with Patient: Greater than 30
[2017-12-10 08:05] VITALS: PULSE 128
--- NOTE | 2017-12-10 08:37 | XR ---
EXAMINATION TYPE: XR chest 1V DATE OF EXAM: 12/10/2017 COMPARISON: [id number] HISTORY: Pneumonia TECHNIQUE: Single frontal view of the chest is obtained. FINDINGS: Bilateral lower lobe infiltrate and small effusion greater on the left. Mild central venou s congestion not excluded. Diffuse osteopenia and arthropathy of the shoulders. Heart size stable. IMPRESSION: 1. Bilateral infiltrate and small effusion correlate for mild central venous congestion.
[2017-12-10 08:38] LABS: Anion Gap 18 mmol/L; Blood Urea Nitrogen 13 mg/dL (7-17); Calcium 9.2 mg/dL (8.4-10.2); Carbon Dioxide 16 mmol/L (22-30); Chloride 110 mmol/L (98-107); Glucose 110 mg/dL (74-99); Potassium 5.1 mmol/L (3.5-5.1); Sodium 144 mmol/L (137-145)
[2017-12-10] MEDS ORDERED: VANCOMYCIN IV PER PHARMACY 1 EACH MISC MISCELLANE PRN (08:44)
[2017-12-10] MEDS ORDERED: HEPARIN SODIUM,PORCINE 5,000 UNIT/ML 1 ML VIAL IV PRN (09:06)
[2017-12-10] MEDS ORDERED: HEPARIN SODIUM,PORCINE 10,000 UNIT/ML 1 ML VIAL IV ONE (09:06)
[2017-12-10] MEDS: PANTOPRAZOLE 40 MG TABLET PO SCH (09:11)
[2017-12-10] MEDS: PIPERACILLIN-TAZOBACTAM 3.375 GM in DEXTROSE/WATER 1 50ML.BAG IVPB SCH ×2 (09:12→15:29)
[2017-12-10] MEDS: MAGNESIUM SULFATE-D5W PMX 1 GM in DEXTROSE/WATER 1 100ML.BAG IVPB SCH ×2 (09:12→09:30)
[2017-12-10] MEDS: ASPIRIN 81 MG PO SCH (09:12)
[2017-12-10] MEDS: LISINOPRIL 20 MG TAB PO SCH (09:15)
[2017-12-10] MEDS ORDERED: HEPARIN SOD,PORK IN 0.45% NACL 25,000 UNIT in 0.45% NACL 1 500ML.BAG IV SCH (09:15)
[2017-12-10] MEDS: ATORVASTATIN 40 MG TAB PO SCH (09:15)
[2017-12-10] MEDS: GABAPENTIN 100 MG CAP PO SCH (09:15)
[2017-12-10] MEDS: FAMOTIDINE 20 MG TAB PO SCH (09:15)
[2017-12-10] MEDS: METOPROLOL TARTRATE 25 MG TAB PO SCH (09:16)
[2017-12-10] MEDS: MAGNESIUM OXIDE 400 MG TAB PO SCH (09:16)
[2017-12-10 09:27] LABS: Basophils # (A) 0.1 k/uL (0-0.2); Basophils % (A) 0 %; Eosinophils % (A) 0 %; HCT 35.1 % (34.0-46.0); HGB 10.2 gm/dL (11.4-16.0); Hypochromasia Marked; Lymphocytes # (A) 3.6 k/uL (1.0-4.8); Lymphocytes % (A) 19 %; MCH 28.4 pg (25.0-35.0); Mean Platelet Volume 7.3; Monocytes # (A) 0.5 k/uL (0-1.0); Monocytes % (A) 3 %; Neutrophils # (A) 15.1 k/uL (1.3-7.7); Neutrophils % (A) 78 %; Platelet Count 619 k/uL (150-450); RBC 3.59 m/uL (3.80-5.40); RDW 13.3 % (11.5-15.5); WBC 19.5 k/uL (3.8-10.6)
[2017-12-10 09:28] LABS: MCV 97.9 fL (80.0-100.0)
[2017-12-10 09:52] LABS: INR 1.2 (<1.2); Prothrombin Time 11.3 sec (9.0-12.0)
[2017-12-10 09:58] LABS: Glucose,Whole Blood 119 mg/dL (75-99)
[2017-12-10 10:11] LABS: Partial Thromboplastin Time 18.6 sec (22.0-30.0)
[2017-12-10] MEDS ORDERED: FUROSEMIDE 10 MG/ML 2 ML VIAL IV STA (10:14)
--- NOTE | 2017-12-10 10:20 | P.CRDCN ---
History of Present Illness Consult date: 12/10/17 History of present illness: This is a 87-year-old female who was admitted to the medical floor with an influenza and also possible pneumonia. She has history of previous CVA. She was hypotensive on admission.. Yesterday patient was found to be low in both the magnesium levels and also potassium levels.. She is also on multiple antibiotics.. Apparently she became more lethargic and unresponsive and was shaky. Patient was transferred to intensive care unit for further management. Chest x-ray showed evidence of left-sided pneumonia and possible mild CHF. At the time of my examination patient is moaning and groaning and not responding appropriately to verbal stimuli. A pulmonary consult is pending. Troponin values are elevated. EKGs not available. I'm going to get couple of more troponin values. An echocardiogram. I'll treat her with one dose of Lasix IV 20 mg. Rest of the management as per the lens molder. Prognosis is guarded Review of Systems Not obtained Past Medical History Past Medical History: GERD/Reflux, Hypertension, Osteoarthritis (OA) Additional Past Medical History / Comment(s): Previous history of CVA w/ left- sided weakness, hypertension, acid reflux, osteoarthritis, physical debility, falls, History of Any Multi-Drug Resistant Organisms: None Reported Past Surgical History: Tonsillectomy Additional Past Surgical History / Comment(s): neck sx "don't know what kind of surgery" Past Anesthesia/Blood Transfusion Reactions: No Reported Reaction Past Psychological History: No Psychological Hx Reported Smoking Status: Former smoker Past Alcohol Use History: Occasional Additional Past Alcohol Use History / Comment(s): "Quit a long time ago". Past Drug Use History: None Reported - Past Family History Mother Family Medical History: Hypertension Additional Family Medical History / Comment(s): "born with hole in heart" Father Family Medical History: Myocardial Infarction ([place]) Medications and Allergies Home Medications Medication Instructions Recorded Confirmed Type Aspirin [Adult Low Dose Aspirin EC] 81 mg PO DAILY 05/23/17 12/01/17 History Gabapentin [Neurontin] 100 mg PO TID 05/23/17 12/01/17 History Lisinopril-Hctz 20-12.5 mg 1 tab PO BID 05/23/17 12/01/17 History [Zestoretic 20-12.5] Acetaminophen Tab [Tylenol] 325 mg PO Q6HR PRN #0 tab 07/26/17 12/01/17 Rx Ipratropium-Albuterol Nebulize 3 ml INHALATION RT-Q4H PRN neb 07/26/17 Rx [Duoneb 0.5 mg-3 mg/3 ml Soln] Metoprolol Tartrate [Lopressor] 25 mg PO BID tab 07/26/17 12/01/17 Rx Pantoprazole [Protonix] 40 mg PO AC-BRKFST tab 07/26/17 12/01/17 Rx Atorvastatin [Lipitor] 40 mg PO HS 12/01/17 12/01/17 History Bismuth Subsalicylate 524 mg PO Q4H PRN 12/01/17 12/01/17 History [Pepto-Bismol] Dimethicone/Zinc Oxide [Inzo Zinc 1 applic TOPICAL BID 12/01/17 12/01/17 History Oxide Barrier Cream] Folic Acid 1 mg PO DAILY 12/01/17 12/01/17 History Furosemide [Lasix] 20 mg PO DAILY@1400 12/01/17 12/01/17 History Furosemide [Lasix] 40 mg PO DAILY@0900 12/01/17 12/01/17 History HYDROcodone/APAP 5-325MG [[place] 1 tab PO Q6HR PRN 12/01/17 12/01/17 History 5-325] Loratadine [Claritin] 10 mg PO DAILY 12/01/17 12/01/17 History Potassium Chloride [Klor-Con 10] 10 meq PO DAILY 12/01/17 12/01/17 History Thiamine [Vitamin B-1] 100 mg PO DAILY 12/01/17 12/01/17 History guaiFENesin [guaiFENesin Oral 200 mg PO Q4H PRN 12/01/17 12/01/17 History Solution] Allergies Allergy/AdvReac Type Severity Reaction Status Date / Time No Known Allergies Allergy Verified 12/01/17 10:43 Physical Exam Vitals: Vital Signs Temp Pulse Pulse Resp BP BP Pulse Ox 12/10/17 08:05 128 H 18 12/10/17 07:55 124 H 20 94 L 12/10/17 07:00 97.8 F 105 H 24 125/57 97 12/10/17 03:50 97.5 F L 122 H 8 L 150/72 91 L 12/09/17 15:00 97.6 F 71 16 169/81 93 L Intake and Output 12/09/17 12/10/17 12/10/17 22:59 06:59 14:59 Intake Total 0 Balance 0 Intake: Oral 0 Other: Voiding Method Diaper Diaper Diaper Incontinent Incontinent Incontinent # Voids 1 4 # Bowel Movements 1 2 GENERAL EXAM: Patient is moaning and groaning and not responding to verbal stimuli HEENT: Normocephalic. NECK: No masses, no nuchal rigidity. CHEST: No chest wall deformity. LUNGS: Diminished breath sounds, more so on the left side HEART: S1 and S2 normal. Distant heart sounds ABDOMEN: Soft. SKIN: No rashes CENTRAL NERVOUS SYSTEM: Deferred EXTREMITIES: No cyanosis, clubbing or edema. Results 12/10/17 07:57 12/10/17 07:57 Cardiac Enzymes 12/10/17 Range/Units 08:04 Troponin I 1.090 H* (0.000-0.034) ng/mL Coagulation 12/10/17 Range/Units 08:04 PT 11.3 (9.0-12.0) sec APTT 18.6 L (22.0-30.0) sec CBC 12/10/17 Range/Units 07:57 WBC 19.5 H (3.8-10.6) k/uL RBC 3.59 L (3.80-5.40) m/uL Hgb 10.2 L (11.4-16.0) gm/dL Hct 35.1 (34.0-46.0) % Plt Count 619 H (150-450) k/uL Comprehensive Metabolic Panel 12/10/17 Range/Units 07:57 Sodium 144 (137-145) mmol/L Potassium 5.1 (3.5-5.1) mmol/L Chloride 110 H (98-107) mmol/L Carbon Dioxide 16 L (22-30) mmol/L BUN 13 (7-17) mg/dL Creatinine 0.95 (0.52-1.04) mg/dL Glucose 110 H (74-99) mg/dL Calcium 9.2 (8.4-10.2) mg/dL Current Medications Generic Name Dose Route Start Last Admin Trade Name Freq PRN Reason Stop Dose Admin Acetaminophen 650 mg 12/01/17 13:16 Tylenol Tab PO Q6HR PRN Fever and/ or Pain Albuterol/Ipratropium 3 ml 12/01/17 08:00 12/10/17 07:54 Duoneb 0.5 Mg-3 Mg/3 Ml Soln INHALATION 3 ml RT-QID [facility] Administration Albuterol/Ipratropium 3 ml 12/01/17 04:27 Duoneb 0.5 Mg-3 Mg/3 Ml Soln INHALATION RT-Q2H PRN Shortness Of Breath Or Wheezing Aspirin 81 mg 12/01/17 09:00 12/10/17 09:12 Aspirin PO Not Given DAILY [facility] Atorvastatin Calcium 40 mg 12/01/17 09:00 12/10/17 09:15 Lipitor PO Not Given DAILY [facility] Famotidine 20 mg 12/06/17 09:00 12/10/17 09:15 Pepcid PO Not Given DAILY [facility] Folic Acid 1 mg 12/01/17 12:00 12/09/17 11:27 Folic Acid PO 1 mg DAILY@1200 [facility] Administration Gabapentin 100 mg 12/01/17 09:00 12/10/17 09:15 Neurontin PO Not Given TID [facility] Heparin Sodium (Porcine) 0 unit 12/10/17 09:06 Heparin IV PER PROTOCOL PRN Low PTT Protocol Lactated Ringer's 1,000 mls @ 75 mls/hr 12/02/17 12:00 12/10/17 05:12 Lactated Ringers IV Not Given .[id number] [facility] Sodium Chloride 1,000 mls @ 75 mls/hr 12/10/17 07:30 12/10/17 10:08 Saline 0.9% IV Not Given .[id number] [facility] Piperacillin/Tazobactam/ 50 mls @ 12.5 mls/hr 12/10/17 08:00 12/10/17 09:12 Dextrose 3.375 gm/ IV Solution IVPB 12.5 mls/hr Q8HR [facility] Administration Vancomycin HCl 1,000 mg/ 250 mls @ 125 mls/hr 12/10/17 12:00 Sodium Chloride IVPB Q24H [facility] Heparin Sodium/Sodium Chloride 500 mls @ 18.54 mls/hr 12/10/17 09:15 25,000 unit/ Sodium Chloride IV .Q24H [facility] Protocol 18 UNITS/KG/HR Lisinopril 20 mg 12/09/17 18:00 12/10/17 09:15 Zestril PO Not Given DAILY [facility] Magnesium Oxide 400 mg 12/09/17 21:00 12/10/17 09:16 Mag-Ox PO 12/12/17 21:01 Not Given BID [facility] Metoprolol Tartrate 25 mg 12/01/17 09:00 12/10/17 09:16 Lopressor PO Not Given BID [facility] Miscellaneous Information 1 each 12/01/17 04:04 Pneumonia Protocol Utilized PO ONCE PRN Per Protocol Miscellaneous Information 1 each 12/10/17 07:57 Potassium Per Protocol MISCELLANE DAILY PRN Per Protocol Protocol Ondansetron HCl 4 mg 12/09/17 17:32 12/10/17 06:21 Zofran Odt PO 4 mg Q6HR PRN Administration Nausea Pantoprazole Sodium 40 mg 12/01/17 07:30 12/10/17 09:11 Protonix PO Not Given AC-BRKFST [facility] Thiamine HCl 100 mg 12/01/17 12:00 12/09/17 11:27 Vitamin B-1 PO 100 mg DAILY@1200 [facility] Administration Tramadol HCl 50 mg 12/01/17 13:13 12/10/17 05:13 Ultram PO 50 mg QID PRN Administration Pain/Discomfort Intake and Output 12/09/17 12/10/17 12/10/17 22:59 06:59 14:59 Intake Total 0 Balance 0 Intake: Oral 0 Other: Voiding Method Diaper Diaper Diaper Incontinent Incontinent Incontinent # Voids 1 4 # Bowel Movements 1 2 12/10/17 07:57 12/10/17 07:57 Assessment and Plan (1) Altered mental status Current Visit: Yes Status: Acute Code(s): R41.82 - ALTERED MENTAL STATUS, UNSPECIFIED SNOMED Code(s): 701737831 (2) Pneumonia Current Visit: Yes Status: Acute Code(s): J18.9 - PNEUMONIA, UNSPECIFIED ORGANISM SNOMED Code(s): 936920546 (3) Sepsis Current Visit: Yes Status: Acute Code(s): A41.9 - SEPSIS, UNSPECIFIED ORGANISM SNOMED Code(s): 16720779 (4) Left lower lobe pneumonia Current Visit: Yes Status: Acute Code(s): J18.1 - LOBAR PNEUMONIA, UNSPECIFIED ORGANISM SNOMED Code(s): 575402718 (5) Hypertension Current Visit: No Status: Acute Code(s): I10 - ESSENTIAL (PRIMARY) HYPERTENSION SNOMED Code(s): 97581946 (6) Elevated troponin Current Visit: Yes Status: Acute Code(s): R74.8 - ABNORMAL LEVELS OF OTHER SERUM ENZYMES SNOMED Code(s): 752033597 Plan: Patient has altered mental status, could be related to pneumonia and sepsis. Troponin values are elevated, which may indicate myocardial injury related to stress , though subendocardial [place] cannot be excluded. I will get 2 more troponin values. We'll get an echocardiogram done. I'll treat her empirically with nitrates and beta galilea and aspirin. Pulmonary consult pending. Patient is given one dose of Lasix IV. Further examination depend on clinical course
--- NOTE | 2017-12-10 10:57 | P.CNPUL ---
History of Present Illness Consult date: 12/10/17 Reason for consult: pneumonia, pleural effusion Chief complaint: Elevated lactic acid, elevated troponin History of present illness: Consult dated 10/09/2018 This is an 87-year-old female who was brought in for evaluation for generalized weakness. She was admitted early seen back on December 01. She apparently had progressive weakness for about a week or so prior to admission. The patient apparently was also very confused. She was recently diagnosed with influenza about a week ago. She did take Tamiflu for that. She did have a cough. Her blood pressure is a bit low about 80-90 systolic initially. Chest x-ray show what appeared to be a left lower lobe infiltrate with a possible left-sided effusion. Very poor historian per the nurse was taking care of her. She does have a history of recent CVA with residual left-sided weakness. The patient also apparently has a history of neuropathy hypertension osteoarthritis GERD hyperlipidemia diabetes and possible COPD. ALLERGIES are denied. The medications are reviewed. She was a former smoker in the past. She herself can give me no additional history. She is very confused and out of it. Basically just moaning in bed. Review of Systems ROS unobtainable: due to mental status Past Medical History Past Medical History: GERD/Reflux, Hypertension, Osteoarthritis (OA) Additional Past Medical History / Comment(s): Previous history of CVA w/ left- sided weakness, hypertension, acid reflux, osteoarthritis, physical debility, falls, History of Any Multi-Drug Resistant Organisms: None Reported Past Surgical History: Tonsillectomy Additional Past Surgical History / Comment(s): neck sx "don't know what kind of surgery" Past Anesthesia/Blood Transfusion Reactions: No Reported Reaction Past Psychological History: No Psychological Hx Reported Smoking Status: Former smoker Past Alcohol Use History: Occasional Additional Past Alcohol Use History / Comment(s): "Quit a long time ago". Past Drug Use History: None Reported - Past Family History Mother Family Medical History: Hypertension Additional Family Medical History / Comment(s): "born with hole in heart" Father Family Medical History: Myocardial Infarction ([place]) Medications and Allergies Home Medications Medication Instructions Recorded Confirmed Type Aspirin [Adult Low Dose Aspirin EC] 81 mg PO DAILY 05/23/17 12/01/17 History Gabapentin [Neurontin] 100 mg PO TID 05/23/17 12/01/17 History Lisinopril-Hctz 20-12.5 mg 1 tab PO BID 05/23/17 12/01/17 History [Zestoretic 20-12.5] Acetaminophen Tab [Tylenol] 325 mg PO Q6HR PRN #0 tab 07/26/17 12/01/17 Rx Ipratropium-Albuterol Nebulize 3 ml INHALATION RT-Q4H PRN neb 07/26/17 Rx [Duoneb 0.5 mg-3 mg/3 ml Soln] Metoprolol Tartrate [Lopressor] 25 mg PO BID tab 07/26/17 12/01/17 Rx Pantoprazole [Protonix] 40 mg PO AC-BRKFST tab 07/26/17 12/01/17 Rx Atorvastatin [Lipitor] 40 mg PO HS 12/01/17 12/01/17 History Bismuth Subsalicylate 524 mg PO Q4H PRN 12/01/17 12/01/17 History [Pepto-Bismol] Dimethicone/Zinc Oxide [Inzo Zinc 1 applic TOPICAL BID 12/01/17 12/01/17 History Oxide Barrier Cream] Folic Acid 1 mg PO DAILY 12/01/17 12/01/17 History Furosemide [Lasix] 20 mg PO DAILY@1400 12/01/17 12/01/17 History Furosemide [Lasix] 40 mg PO DAILY@0900 12/01/17 12/01/17 History HYDROcodone/APAP 5-325MG [[place] 1 tab PO Q6HR PRN 12/01/17 12/01/17 History 5-325] Loratadine [Claritin] 10 mg PO DAILY 12/01/17 12/01/17 History Potassium Chloride [Klor-Con 10] 10 meq PO DAILY 12/01/17 12/01/17 History Thiamine [Vitamin B-1] 100 mg PO DAILY 12/01/17 12/01/17 History guaiFENesin [guaiFENesin Oral 200 mg PO Q4H PRN 12/01/17 12/01/17 History Solution] Allergies Allergy/AdvReac Type Severity Reaction Status Date / Time No Known Allergies Allergy Verified 12/01/17 10:43 Physical Exam Osteopathic Statement: *. No significant issues noted on an osteopathic structural exam other than those noted in the History and Physical/Consult. Vitals: Vital Signs Temp Pulse Pulse Resp BP BP Pulse Ox 12/10/17 08:05 128 H 18 12/10/17 07:55 124 H 20 94 L 12/10/17 07:00 97.8 F 105 H 24 125/57 97 12/10/17 03:50 97.5 F L 122 H 8 L 150/72 91 L 12/09/17 15:00 97.6 F 71 16 169/81 93 L Intake and Output 12/09/17 12/10/17 12/10/17 22:59 06:59 14:59 Intake Total 0 Balance 0 Intake: Oral 0 Other: Voiding Method Diaper Diaper Diaper Incontinent Incontinent Incontinent # Voids 1 4 # Bowel Movements 1 2 The patient is moaning. Not alert or oriented. Doesn't open eyes. Nasal O2 in place. HEENT examination is grossly unremarkable. Mucous membranes are moist. Neck supple. Full range of motion. No adenopathy thyromegaly or neck vein distention. Cardiovascular examination reveals regular rhythm rate. S1-S2 normal. No S3 or S4. No discernible murmur noted. Heart rate is regular and at about 120 bpm. Lungs reveal clear breath sounds. Her sounds are equal bilaterally. No adventitious lung sounds including wheezes rhonchi or crackles. She does not take deep breaths or evaluation of her lungs is difficult. Abdomen soft bowel sounds are heard. No masses or tenderness. Extremities are intact. No cyanosis clubbing or edema. Skin is without rash or lesion. Neurologic examination could not be adequately assessed. Results - Laboratory Findings CBC and BMP: 12/10/17 07:57 12/10/17 07:57 PT/INR, D-dimer PT 11.3 sec (9.0-12.0) 12/10/17 08:04 INR 1.2 (<1.2) H 12/10/17 08:04 D-Dimer 4.96 mg/L FEU (<0.60) H 12/10/17 08:04 Abnormal lab findings: Abnormal Labs 12/01/17 12/01/17 12/01/17 01:58 01:58 13:00 WBC 12.2 H RBC 3.71 L Hgb 10.8 L Hct 32.8 L MCHC Plt Count 576 H Neutrophils # 8.0 H INR APTT D-Dimer Sodium 136 L Potassium Chloride Carbon Dioxide BUN 96 H* Creatinine 2.30 H Glucose 106 H POC Glucose (mg/dL) Plasma Lactic Acid Travis Magnesium 1.0 L* Alkaline Phosphatase 144 H Troponin I Total Protein 6.0 L Albumin 3.2 L Urine Appearance Cloudy H Urine Protein Trace H Urine Blood Trace H Ur Leukocyte Esterase Large H Urine WBC >182 H Urine WBC Clumps Moderate H Ur Squamous Epith Cells 5 H Urine Bacteria Rare H Urine Mucus Rare H 12/02/17 12/02/17 12/03/17 07:53 07:53 07:04 WBC RBC 3.22 L Hgb 11.1 L 9.3 L D Hct 29.8 L MCHC Plt Count 617 H 543 H Neutrophils # INR APTT D-Dimer Sodium Potassium Chloride 108 H Carbon Dioxide 20 L BUN 65 H Creatinine 1.55 H Glucose 102 H POC Glucose (mg/dL) Plasma Lactic Acid [place] Magnesium 2.6 H Alkaline Phosphatase Troponin I Total Protein Albumin Urine Appearance Urine Protein Urine Blood Ur Leukocyte Esterase Urine WBC Urine WBC Clumps Ur Squamous Epith Cells Urine Bacteria Urine Mucus 12/03/17 12/04/17 12/04/17 07:04 08:03 08:03 WBC 11.2 H RBC 3.40 L Hgb 10.0 L Hct 31.0 L MCHC Plt Count 480 H Neutrophils # INR APTT D-Dimer Sodium Potassium Chloride 108 H Carbon Dioxide BUN 38 H 23 H Creatinine 1.23 H Glucose POC Glucose (mg/dL) Plasma Lactic Acid Travis Magnesium Alkaline Phosphatase Troponin I Total Protein 5.5 L Albumin 2.7 L Urine Appearance Urine Protein Urine Blood Ur Leukocyte Esterase Urine WBC Urine WBC Clumps Ur Squamous Epith Cells Urine Bacteria Urine Mucus 12/05/17 12/05/17 12/09/17 08:38 08:38 08:33 WBC 11.6 H RBC 3.48 L 3.31 L Hgb 9.9 L 9.5 L Hct 31.5 L 30.7 L MCHC Plt Count 587 H 522 H Neutrophils # 7.8 H INR APTT D-Dimer Sodium Potassium Chloride Carbon Dioxide BUN Creatinine Glucose POC Glucose (mg/dL) Plasma Lactic Acid Travis Magnesium Alkaline Phosphatase 140 H Troponin I Total Protein 5.2 L Albumin 2.6 L Urine Appearance Urine Protein Urine Blood Ur Leukocyte Esterase Urine WBC Urine WBC Clumps Ur Squamous Epith Cells Urine Bacteria Urine Mucus 12/09/17 12/09/17 12/10/17 08:33 08:33 07:57 WBC 19.5 H RBC 3.59 L Hgb 10.2 L Hct MCHC 29.0 L Plt Count 619 H Neutrophils # 15.1 H INR APTT D-Dimer Sodium Potassium 3.0 L* Chloride Carbon Dioxide BUN Creatinine Glucose 67 L POC Glucose (mg/dL) Plasma Lactic Acid Travis Magnesium 1.3 L Alkaline Phosphatase Troponin I Total Protein Albumin Urine Appearance Urine Protein Urine Blood Ur Leukocyte Esterase Urine WBC Urine WBC Clumps Ur Squamous Epith Cells Urine Bacteria Urine Mucus 12/10/17 12/10/17 12/10/17 07:57 07:57 08:04 WBC RBC Hgb Hct MCHC Plt Count Neutrophils # INR APTT D-Dimer 4.96 H Sodium Potassium Chloride 110 H Carbon Dioxide 16 L BUN Creatinine Glucose 110 H POC Glucose (mg/dL) Plasma Lactic Acid [place] 4.3 H* Magnesium Alkaline Phosphatase Troponin I Total Protein Albumin Urine Appearance Urine Protein Urine Blood Ur Leukocyte Esterase Urine WBC Urine WBC Clumps Ur Squamous Epith Cells Urine Bacteria Urine Mucus 12/10/17 12/10/17 12/10/17 08:04 08:04 09:55 WBC RBC Hgb Hct MCHC Plt Count Neutrophils # INR 1.2 H APTT 18.6 L D-Dimer Sodium Potassium Chloride Carbon Dioxide BUN Creatinine Glucose POC Glucose (mg/dL) 119 H Plasma Lactic Acid Travis Magnesium Alkaline Phosphatase Troponin I 1.090 H* Total Protein Albumin Urine Appearance Urine Protein Urine Blood Ur Leukocyte Esterase Urine WBC Urine WBC Clumps Ur Squamous Epith Cells Urine Bacteria Urine Mucus - Diagnostic Findings Chest x-ray: image reviewed (Labs x-rays a medications are reviewed.) Assessment and Plan Assessment: Assessment Mental status changes, likely more acute on chronic in nature. 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 In my opinion the patient could' ve really stayed on the floor. The patient's having an echocardiogram. The patient was started on IV heparin. The patient's getting a saline IV at 75 mL an hour. Management will be mostly conservative. She is on nasal O2 at 2 L. Labs x-rays a medications are reviewed. Chest x-ray showed a persistent left lower lobe consolidation with left-sided effusion. Is probably a bit worse. Certainly no better. Additional recommendations and suggestions are forthcoming. Time with Patient: Greater than 30
[2017-12-10] MEDS ORDERED: VANCOMYCIN 1,000 MG in SODIUM CHLORIDE 0.9% 250 ML IVPB SCH (12:00)
--- NOTE | 2017-12-10 12:14 | ECHOF ---
Referral Reason:chf MEASUREMENTS -------- HEIGHT: 162.6 cm WEIGHT: 51.3 kg BP: 138/66 IVSd: 1.2 cm (0.6 - 1.1) LVIDd: 3.0 cm (3.9 - 5.3) LVPWd: 1.0 cm (0.6 - 1.1) IVSs: 1.4 cm LVIDs: 2.6 cm LVPWs: 1.2 cm LAESV Index (A-L): 31.46 ml/m Ao Diam: 2.5 cm (2.0 - 3.7) AV Cusp: 1.1 cm (1.5 - 2.6) LA Diam: 2.4 cm (2.7 - 3.8) MV E Mariano: 0.99 m/s MV DecT: 90 ms MV A Mariano: 1.34 m/s MV E/A Ratio: 0.74 AV maxP.32 mmHg AV meanP.72 mmHg AR PHT: 155 ms RAP: 5.00 mmHg RVSP: 75.79 mmHg FINDINGS -------- Sinus rhythm. This was a technically difficult study with suboptimal views. The left ventricular size is normal. There is borderline concentric left ventricular hypertrophy. Overall left ventricular systolic function is severely impaired with, an EF between 25 - 30 %. Mid anterior LV wall motion is akinetic. Mid lateral LV wall motion is akinetic. Mid anteroseptal LV wall motion is akinetic. Apical anterior LV wall motion is akinetic. Apical lateral LV wall motion is akinetic. Apical inferior LV wall motion is akinetic. Apical septum LV wall motion is akinetic. Septal Hypokinesis The right ventricle is normal in size and function. LA is midly dilated 29-33ml/m2. The right atrium is normal in size. 1.5mg of Definity was utilized for enhancement of images Aortic valve is trileaflet and is mildly thickened. There is mild aortic regurgitation. There is moderate aortic stenosis present. Peak/mean gradient across the Aortic Valve is 47.32mmHg / 24.72mm Hg. The mitral valve leaflets are mildly thickened. Mild mitral regurgitation is present. Moderate to severe tricuspid regurgitation present. There is severe pulmonary hypertension. The r ight ventricular systolic pressure, as measured by Doppler, is 75.79mmHg. There is no pulmonic regurgitation present. The aortic root size is normal. There is no pericardial effusion. CONCLUSIONS -------- 1. Sinus rhythm. 2. This was a technically difficult study with suboptimal views. 3. The left ventricular size is normal. 4. There is borderline concentric left ventricular hypertrophy. 5. Overall left ventricular systolic function is severely impaired with, an EF between 25 - 30 %. 6. Mid anterior LV wall motion is akinetic. 7. Mid lateral LV wall motion is akinetic. 8. Mid anteroseptal LV wall motion is akinetic. 9. Apical anterior LV wall motion is akinetic. 10. Apical lateral LV wall motion is akinetic. 11. Apical inferior LV wall motion is akinetic. 12. Apical septum LV wall motion is akinetic. 13. Septal Hypokinesis 14. LA is midly dilated 29-33ml/m2. 15. Lumason used 16. Aortic valve is trileaflet and is mildly thickened. 17. There is mild aortic regurgitation. 18. There is moderate aortic stenosis present. 19. Peak/mean gradient across the Aortic Valve is 47.32mmHg / 24.72mmHg. 20. The mitral valve leaflets are mildly thickened. 21. Mild mitral regurgitation is present. 22. Moderate to severe tricuspid regurgitation present. 23. There is severe pulmonary hypertension. 24. The right ventricular systolic pressure, as measured by Doppler, is 75.79mmHg. 25. There is no pulmonic regurgitation present. 26. The aortic root size is normal. 27. There is no pericardial effusion. [employer] ATTENDANT: Terri Haney RDCS
[2017-12-10 12:36] VITALS: BP 139/77; RESP 20
[2017-12-10] MEDS ORDERED: MORPHINE SULFATE 4 MG/ML SYRINGE IVP PRN (12:43)
[2017-12-10] MEDS ORDERED: MORPHINE SULFATE 4 MG/ML SYRINGE IVP ONE (15:38)
[2017-12-10] MEDS ORDERED: MORPHINE SULFATE 2 MG/ML SYRINGE ONE (15:42)
[2017-12-10] MEDS ORDERED: FUROSEMIDE 10 MG/ML 2 ML VIAL IV SCH (21:00)
== END 2017-12-10 15:49 | disposition hospice, inpatient (51) | DRG 871 ==
LOC: EC 01:37 → 4MS4W 04:04 → 6ICU 12-10 09:35
PROVIDERS: ADMIT Family Medicine; ATTEND Family Medicine
DX: A41.9 Sepsis, unspecified organism (principal); G92 Toxic encephalopathy; N17.0 Acute kidney failure with tubular necrosis; J90 Pleural effusion, not elsewhere classified; J18.9 Pneumonia, unspecified organism; E11.40 Type 2 diabetes mellitus with diabetic neuropathy, unspecified; I69.354 Hemiplegia and hemiparesis following cerebral infarction affecting left non-dominant side; E86.0 Dehydration; E87.8 Other disorders of electrolyte and fluid balance, not elsewhere classified; E78.5 Hyperlipidemia, unspecified; E83.42 Hypomagnesemia; E87.6 Hypokalemia; I10 Essential (primary) hypertension; J44.9 Chronic obstructive pulmonary disease, unspecified; K21.9 Gastro-esophageal reflux disease without esophagitis; M19.90 Unspecified osteoarthritis, unspecified site; R29.6 Repeated falls; Z79.82 Long term (current) use of aspirin; Z79.899 Other long term (current) drug therapy; Z82.49 Family history of ischemic heart disease and other diseases of the circulatory system; Z87.01 Personal history of pneumonia (recurrent); Z87.891 Personal history of nicotine dependence; Z91.81 History of falling; Z79.891 Long term (current) use of opiate analgesic; R74.8 Abnormal levels of other serum enzymes
CPT/HCPCS: 36415; 71045; 71046; 80048; 80053; 81001; 82150; 82550; 82553; 83605; 83735; 84484; 85025; 85027; 85379; 85610; 85730; 87040; 87086; 93005; 93306; 94640; 94760; 96361; 96365; 96368; 99285

== ENCOUNTER 2017-12-10 15:56 | Inpatient (IN) | payer MEDICAID ==
[2017-12-10 16:17] VITALS: BMI 19.5
[2017-12-10] MEDS ORDERED: MORPHINE SULFATE 4 MG/ML SYRINGE IVP PRN ×2 (16:20)
[2017-12-10] MEDS ORDERED: ONDANSETRON 4 MG/2 ML VIAL IVP PRN (16:23)
[2017-12-10] MEDS ORDERED: BISACODYL 10 MG SUPP RECTAL PRN (16:23)
[2017-12-10] MEDS ORDERED: ACETAMINOPHEN SUPPOSITORY 650 MG SUPP RECTAL PRN (16:23)
[2017-12-10] MEDS: LORazepam 2 MG/ML INJ IV PRN ×2 (16:39→20:49)
[2017-12-11] MEDS: LORazepam 2 MG/ML INJ IV PRN ×2 (04:04→18:18)
[2017-12-11] MEDS ORDERED: MORPHINE ORAL SOL CONC 20 MG/ML BOTTLE PO PRN (11:15)
[2017-12-11] MEDS: MORPHINE ORAL SOL CONC 20 MG/ML BOTTLE PO PRN ×2 (13:12→16:46)
[2017-12-11] MEDS: LORazepam ORAL CONC 60 MG/30 ML BOTTLE PO PRN (16:02)
--- NOTE | 2017-12-12 07:57 | P.PN ---
Subjective Progress Note Date: 12/11/17 Principal diagnosis: Hospice care. After discussion with the family and the prognostic indicators, the patient was transferred to hospice on 12/11. The patient is not very responsive to any type of verbal stimuli today. She seems quite lethargic. Objective - Vital Signs Vital signs: Vital Signs Temp 97.8 F 12/11/17 23:19 Pulse 86 12/11/17 23:19 Resp 16 12/11/17 23:19 BP 148/61 12/11/17 23:19 Pulse Ox 98 12/11/17 23:19 Intake & Output 12/11/17 12/12/17 12/12/17 18:59 06:59 18:59 Output Total 2 Balance -2 Weight 51.5 kg Output: Urine 2 Other: # Voids 1 - Constitutional General appearance: Absent: average body habitus - EENT Eyes: Absent: abnormal pupil - Respiratory Respiratory: bilateral: CTA - Cardiovascular Rhythm: regular Heart sounds: normal: S1, S2 - Gastrointestinal General gastrointestinal: Present: soft. Absent: tenderness Assessment and Plan (1) Altered mental status Current Visit: No Status: Acute Code(s): R41.82 - ALTERED MENTAL STATUS, UNSPECIFIED SNOMED Code(s): 782872686 (2) Community acquired pneumonia Current Visit: No Status: Acute Code(s): J18.9 - PNEUMONIA, UNSPECIFIED ORGANISM SNOMED Code(s): 183076645 (3) Debility Current Visit: No Status: Acute Code(s): R53.81 - OTHER MALAISE SNOMED Code(s): 89766326 Plan: The patient is on appropriate hospice protocol. We'll continue to follow and anticipate discharge if she is stabilizing. Time with Patient: Less than 30
[2017-12-12 08:15] VITALS: BP 158/70; PULSE 87; RESP 12; TEMP 97.2
[2017-12-12] MEDS: LORazepam ORAL CONC 60 MG/30 ML BOTTLE PO PRN (13:46)
--- NOTE | 2017-12-12 13:54 | P.DS ---
Providers Date of admission: 12/10/17 15:56 Attending physician: Emiliano Johns Primary care physician: Emiliano Johns - Discharge Diagnosis(es) (1) Altered mental status Current Visit: No Status: Acute (2) Community acquired pneumonia Current Visit: No Status: Acute (3) Debility Current Visit: No Status: Acute Hospital Course: This is discharge from an 87-year-old white female essentially admitted for pneumonia. She was being treated for community-acquired pneumonia and became unstable about 6-7 days after admission. Her mental status change. She has had struggles because she has had significant CVA recently. She began deteriorating and became more septic in nature even after significant IV antibodies. We transferred to the ICU where after the family [place] saw what was happening to her, they decided to place her in hospice treatment. The patient has been comfortable and is now stabilizing even though she is very difficult to arouse verbally. The patient will be discharged to [facility] ([facility]) . Prognosis is poor secondary to the hospice element. I will see her as necessary. Patient Condition at Discharge: Poor Plan - Discharge Summary New Discharge Prescriptions: No Action Lisinopril-Hctz 20-12.5 mg [Zestoretic 20-12.5] 1 tab PO BID Gabapentin [Neurontin] 100 mg PO TID Aspirin [Adult Low Dose Aspirin EC] 81 mg PO DAILY Acetaminophen Tab [Tylenol] 325 mg PO Q6HR PRN #0 tab PRN Reason: Fever And/ Or Pain Ipratropium-Albuterol Nebulize [Duoneb 0.5 mg-3 mg/3 ml Soln] 3 ml INHALATION RT-Q4H PRN neb PRN Reason: shortness of breath Metoprolol Tartrate [Lopressor] 25 mg PO BID tab Pantoprazole [Protonix] 40 mg PO AC-BRKFST tab guaiFENesin [guaiFENesin Oral Solution] 200 mg PO Q4H PRN PRN Reason: Cough Dimethicone/Zinc Oxide [Inzo Zinc Oxide Barrier Cream] 1 applic TOPICAL BID Bismuth Subsalicylate [Pepto-Bismol] 524 mg PO Q4H PRN PRN Reason: Diarrhea HYDROcodone/APAP 5-325MG [Long [address] 5-325] 1 tab PO Q6HR PRN PRN Reason: Pain Thiamine [Vitamin B-1] 100 mg PO DAILY Potassium Chloride [Klor-Con 10] 10 meq PO DAILY Atorvastatin [Lipitor] 40 mg PO HS Furosemide [Lasix] 40 mg PO DAILY@0900 Furosemide [Lasix] 20 mg PO DAILY@1400 Folic Acid 1 mg PO DAILY Loratadine [Claritin] 10 mg PO DAILY Discharge Medication List Aspirin [Adult Low Dose Aspirin EC] 81 mg PO DAILY 05/23/17 [History] Gabapentin [Neurontin] 100 mg PO TID 05/23/17 [History] Lisinopril-Hctz 20-12.5 mg [Zestoretic 20-12.5] 1 tab PO BID 05/23/17 [History] Acetaminophen Tab [Tylenol] 325 mg PO Q6HR PRN #0 tab 07/26/17 [Rx] Ipratropium-Albuterol Nebulize [Duoneb 0.5 mg-3 mg/3 ml Soln] 3 ml INHALATION RT -Q4H PRN neb 07/26/17 [Rx] Metoprolol Tartrate [Lopressor] 25 mg PO BID tab 07/26/17 [Rx] Pantoprazole [Protonix] 40 mg PO AC-BRKFST tab 07/26/17 [Rx] Atorvastatin [Lipitor] 40 mg PO HS 12/01/17 [History] Bismuth Subsalicylate [Pepto-Bismol] 524 mg PO Q4H PRN 12/01/17 [History] Dimethicone/Zinc Oxide [Inzo Zinc Oxide Barrier Cream] 1 applic TOPICAL BID 01/13 [History] Folic Acid 1 mg PO DAILY 12/01/17 [History] Furosemide [Lasix] 20 mg PO DAILY@1400 12/01/17 [History] Furosemide [Lasix] 40 mg PO DAILY@0900 12/01/17 [History] HYDROcodone/APAP 5-325MG [Long [address] 5-325] 1 tab PO Q6HR PRN 12/01/17 [History] Loratadine [Claritin] 10 mg PO DAILY 12/01/17 [History] Potassium Chloride [Klor-Con 10] 10 meq PO DAILY 12/01/17 [History] Thiamine [Vitamin B-1] 100 mg PO DAILY 12/01/17 [History] guaiFENesin [guaiFENesin Oral Solution] 200 mg PO Q4H PRN 12/01/17 [History] Discharge Disposition: TRANSFER TO SNF/ECF
[2017-12-12] MEDS: MORPHINE ORAL SOL CONC 20 MG/ML BOTTLE PO PRN (15:22)
== END 2017-12-12 15:31 | disposition hospice, home (50) | DRG 871 ==
LOC: 6ICU 15:56 → 4MS4W 16:59
PROVIDERS: ADMIT Family Medicine; ATTEND Family Medicine
DX: A41.9 Sepsis, unspecified organism (principal); J11.00 Influenza due to unidentified influenza virus with unspecified type of pneumonia; G92 Toxic encephalopathy; I69.954 Hemiplegia and hemiparesis following unspecified cerebrovascular disease affecting left non-dominant side; J15.9 Unspecified bacterial pneumonia; R41.82 Altered mental status, unspecified; Z51.5 Encounter for palliative care; I10 Essential (primary) hypertension; M19.90 Unspecified osteoarthritis, unspecified site; K21.9 Gastro-esophageal reflux disease without esophagitis; Z87.891 Personal history of nicotine dependence; Z79.82 Long term (current) use of aspirin; Z79.899 Other long term (current) drug therapy; Z82.49 Family history of ischemic heart disease and other diseases of the circulatory system